=== PATIENT | female | born 1965 | race Caucasian/White ===

== ENCOUNTER 2016-12-02 13:49 | Inpatient (IN) ==
[2016-12-02] MEDS ORDERED: XARELTO PO ONE (15:15)
[2016-12-02 16:16] LABS: MANUAL DIFF NEEDED? NO
[2016-12-02 16:29] LABS: BASO% 0.2 % (0.0-0.8); EOS# 0.11 X1000 (0.0-0.7); HEMATOCRIT 32.9 % (37.0-47.0); HEMOGLOBIN 9.9 g/dL (12.0-16.0); LYMPH% 38.1 % (20.5-51.1); MCH 23.6 PG (27-31); MCHC 30.1 g/dL (33-37); MCV 78.5 FL (81-99); MONO# 0.39 X1000 (0.11-0.59); MONO% 7.1 % (1.7-9.3); MPV 8.4 FL (7.4-10.4); NEUT% 52.6 % (42.2-75.2); PLT 289 X1000 (130-400); RBC 4.19 XMIL (4.2-5.4)
[2016-12-02 16:58] LABS: AGAP 14; ALBUMIN 3.4 g/dL (3.5-5.0); ALKALINE PHOSPHATASE 151 U/L (32-104); BUN 10 mg/dL (8-22); CALCIUM 8.4 mg/dL (8.8-10.2); CHLORIDE 104 mmol/L (98-107); COSMO 283; GOT 30 U/L (10-30); GPT 22 U/L (10-36); POTASSIUM 3.9 mmol/L (3.5-5.1); SODIUM 141 mmol/L (136-145); TCO2 23 mmol/L (25-35); TOTAL BILIRUBIN < 0.10 mg/dL (0.20-1.00)
--- NOTE | 2016-12-02 18:24 | Diag Imaging Result Doc PS360 ---
EXAM: ANGIOGRAM/PULMONARY ARTERIES INDICATION: pt with dvt dx today and sob eval for pe TECHNIQUE: Dose reduction protocol was used. COMPARISON: 04/08/2016 FINDINGS: There are filling defects seen in second and higher order branches of the pulmonary arteries bilaterally mainly leading to the lower lobes. However, there are couple filling defects seen in smaller branches leading to the anterior segment of the right upper lobe. These are consistent with acute pulmonary emboli. There is no evidence of aortic aneurysm. The heart is prominent but stable. There are calcified mediastinal and right hilar lymph nodes indicating prior granulomatous disease. There is a stable large hiatal hernia. There is a calcified granuloma in the lingula. There is stable focal scarring at the left lung base. There is nothing that would indicate acute pulmonary infarct. There is no pleural fluid collection, and there is no pneumothorax. IMPRESSION: 1.Bilateral acute pulmonary emboli with a moderate clot burden. 2.Other incidental/nonacute findings detailed above. Electronically signed by Carlos A Nieto 12/02/2016 6:22 PM
--- NOTE | 2016-12-02 18:49 | PROVIDER DOCUMENTATION ---
This chart was entered by Laura Rodríguez Scribe, acting as scribe for Sierra Farmer MD. HPI-General Adult - General Chief Complaint: Extremity Pain Stated Complaint: DVT Time Seen by Provider: 12/02/16 14:55 Source: patient Allergies/Adverse Reactions: Patient Allergies Allergy/AdvReac Type Severity Reaction Status Date / Time Sulfa (Sulfonamide Allergy Severe BLISTERS Verified 12/02/16 15:11 Antibiotics) TO MOUTH, HANDS, LEGS peanut Allergy Mild ITCHING Verified 12/02/16 15:11 AND SNEEZING Home Medications: Home Medication List Medication Instructions Recorded Confirmed Last Taken Type Lisinopril/Hydrochlorothiazide 1 each PO DAILY #30 tablet 04/22/15 12/02/1611/13 Rx [Lisinopril-Hctz 20-12.5 mg Tab] Omeprazole [Prilosec] 40 mg PO BID 10/07/15 12/02/16 12/02/16 History Phenytoin [Dilantin] 100 mg PO TID 10/07/15 12/02/16 12/02/16 History Ferrous Sulfate [Feosol] 325 mg PO TID 04/28/16 12/02/16 12/02/16 History Furosemide [Lasix] 20 mg PO BID 11/08/16 12/02/16 12/02/16 History Diltiazem [Cardizem] 60 mg PO Q6HR 11/20/16 12/02/16 12/02/16 History - History of Present Illness -Gen Adult Nature of Presenting Problems: 51 y/o F presents to ED cc of DVT to R groin . Pt states she had an ablation done to both legs x 3 weeks ago. Pt states her R leg started having some redness and swelling. Pt was seen here and discharged home with a script. [facility] and doctor wanted to see her before filling. After seeing pt he ordered a ultrasound on leg. Pt states they called her today saying she had a DVT and needed to come to ED for evaluation. Pt states she does have a history of blood cots. Pt reports that the past couple of weeks she has had increasingly worse SOB. Pt denies any pain. Pt is alert and oriented. Location of Pain/Injury: reports: lower extremity Pain Radiation: reports: no radiation Quality of Pain: reports: aching ("full" feeling) Severity: reports: mild Onset/Duration: reports: just prior to arrival Timing: reports: still present Context/Activities at Onset: reports: light activity Modifying Factors: improves with: nothing Associated Symptoms: reports: shortness of breath, other (DVT). denies: chest pain, cough, diarrhea, fever/chills, headaches, nausea, seizure, syncope, vomiting Similar Symptoms Previously?: Yes Recently seen or treated by another doctor?: Yes Review of Systems - Adult - REVIEW OF SYSTEMS - ADULT Constitutional: denies: chills, fever Ears, Nose, Mouth & Throat: denies: ear pain, nose pain Cardiovascular: denies: chest pain, palpitations Respiratory: reports: shortness of breath. denies: cough Gastrointestinal: denies: abdominal pain, diarrhea, frequent heartburn, nausea, rectal bleeding, vomiting Musculoskeletal: reports: other (DVT to r leg). denies: bone pain, back pain, joint swelling, muscle aches Neurological: denies: dizziness/vertigo, headache/migraines, seizure, slurred speech Past History - Adult - PAST MEDICAL HISTORY-ADULT Review of Records: reports: Old Records Reviewed, Nursing Assessment Review Major Childhood Illnesses: reports: denies history Cardiovascular: reports: blood clots, CHF, HTN Respiratory: reports: denies history Gastrointestinal: reports: GI bleed, hepatitis (c) Obstetrical/Gynecological: reports: denies history Genitourinary: reports: kidney disease Musculoskeletal: reports: denies history Neurological: reports: Seizures/Epilepsy Psychiatric: reports: denies history Endocrine/Immune: reports: denies history Other Conditions: reports: denies history - PRIOR SURGERIES/PROCEDURES Surgical/Procedure History: reports: cholecystectomy, hysterectomy, other ( right orbit, right axillary) - PRIOR HOSPITALIZATIONS Prior Hospitalizations: reports: for other non-related - IMMUNIZATION STATUS Childhood Immunizations: See Nurse Assessment Flu Vaccine: See Nurse Assessment - FAMILY HISTORY Family History: reviewed, not pertinent Physical Exam-General - PHYSICAL EXAM-ADULT Initial Vital Signs Reviewed: Yes - CONSTITUTIONAL General Appearance: appears well, alert, obese, anxious - EYES Eyes: pink conjunctivae - HEAD, EARS, NOSE, MOUTH & THROAT HENMT: normocephalic/atraumatic, moist mucous membranes, normal ENT inspection - NECK Neck: non-tender - RESPIRATORY Respiratory: chest non-tender, lungs clear, normal breath sounds - CARDIOVASCULAR Cardiovascular: normal peripheral pulses, regular rate, rhythm, no edema - GASTROINTESTINAL (ABDOMEN) Abdominal Exam: normal bowel sounds, non tender, soft - MUSCULOSKELETAL Back Exam: normal inspection, no CVA tenderness, no vertebral tenderness Extremity: normal range of motion, non-tender - SKIN Integumentary: normal color, normal turgor, warm/dry - NEUROLOGIC Neurologic: grossly normal, no motor/sensory deficits - PSYCHIATRIC Psych/Mental Status: oriented x 3 Progress - PLAN OF CARE/RESULTS Progress/Plan/Lab Results: Vital Signs - 8 hr 12/02/16 14:03 Temperature 98.5 F Pulse Rate 81 Respiratory Rate 20 Blood Pressure 152/97 O2 Sat by Pulse Oximetry 98 PLAN: LABS , RESULTS OF ULTRASOUND , MONITOR PT PT VERBALLY UNDERSTANDS PLAN OF CARE. Result Diagrams: 12/02/16 16:01 12/02/16 16:01 - CT/MRI 1 CT Study: Angiogram, Thorax Impression: Abnormal, Discussed w/Radiology, See EMR Report (pt with bilateral PE) - CONSULTS/PCP/HOSPITALIST Notification #1 *Consult/PCP/Hospitalist*: hospitalist Time Discussed: 18:48 Consult Disposition: Admit Departure - Departure Date of Disposition Decision: 12/02/16 Time of Disposition Decision: 18:39 DIAGNOSIS: Pulmonary embolism Qualifiers: Pulmonary embolism type: saddle Chronicity: acute Acute cor pulmonale presence : without acute cor pulmonale Qualified Code(s): I26.92 - Saddle embolus of pulmonary artery without acute cor pulmonale DVT (deep venous thrombosis) Qualifiers: DVT location: lower extremity Affected thrombotic vein of extremity: femoral Chronicity: acute Laterality: right Qualified Code(s): I82.411 - Acute embolism and thrombosis of right femoral vein Disposition: ADMITTED INPATIENT 09 Certified Medical Emergency: Emergent Condition: Fair Referrals and Follow-Ups: None,PCP [Primary Care Provider] - - Critical Care Note This patient required my direct & personal management of CC.: Yes Total Time (mins): 35 Critical Care Statement: This patient required my direct personal management to treat or rule out processes, the absence of which, could potentiallly result in sudden, clinically significant life or limb threatening deterioration. This chart was documented by the laura scribe, (Laura Rodríguez Scribe) and accurately reflects the services I performed and decisions made by me, Archinard ,Dean-Fatemeh M., MD, as attested by the provider's signature.
[2016-12-02] MEDS ORDERED: ZOFRAN IV PRN (21:07)
[2016-12-02] MEDS: LASIX PO SCH (21:34)
[2016-12-02] MEDS: CARDIZEM PO SCH (21:34)
[2016-12-02] MEDS: PRILOSEC PO SCH (21:34)
[2016-12-03 01:06] LABS: URINE CULTURE NEEDED? NO; URINE SOURCE CATH
[2016-12-03 01:11] LABS: BILIRUBIN URINE NEGATIVE (NEGATIVE); BLOOD URINE NEGATIVE (NEGATIVE); COLOR YELLOW; GLUCOSE URINE NEGATIVE (NEGATIVE); LEUKOCYTES URINE NEGATIVE (NEGATIVE); NITRITE URINE NEGATIVE (NEGATIVE); PH URINE 5.5; PROTEIN URINE TRACE mg/dL (NEGATIVE); TURBIDITY URINE CLEAR (CLEAR); URINE MICRO REVIEW NEEDED? YES; UROBILINOGEN URINE NORMAL (NORMAL)
[2016-12-03 02:21] LABS: UR EPITHELIAL CELLS >10 /HPF (<10); URINE BACTERIA NEGATIVE /HPF; URINE CASTS NONE SEEN; URINE CRYSTALS NONE SEEN; URINE RBC <10 /HPF (<10); URINE SMALL ROUND CELLS NONE SEEN; URINE WBC <10 /HPF (<10)
[2016-12-03 02:26] LABS: SP GRAVITY URINE 1.015
[2016-12-03] MEDS: CARDIZEM PO SCH ×4 (02:30→19:59)
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
[2016-12-03 05:42] LABS: MANUAL DIFF NEEDED? NO
[2016-12-03 05:47] LABS: BASO% 0.5 % (0.0-0.8); EOS# 0.13 X1000 (0.0-0.7); EOS% 2.4 % (0.0-10.0); HEMOGLOBIN 9.5 g/dL (12.0-16.0); LYMPH# 1.83 X1000 (1.2-3.4); LYMPH% 33.1 % (20.5-51.1); MCH 23.4 PG (27-31); MCHC 29.7 g/dL (33-37); MCV 78.8 FL (81-99); MONO# 0.59 X1000 (0.11-0.59); MONO% 10.7 % (1.7-9.3); MPV 8.6 FL (7.4-10.4); NEUT% 53.3 % (42.2-75.2); PLT 285 X1000 (130-400); RBC 4.06 XMIL (4.2-5.4)
[2016-12-03 06:13] LABS: AGAP 9; BUN 8 mg/dL (8-22); CALCIUM 8.6 mg/dL (8.8-10.2); CHLORIDE 105 mmol/L (98-107); COSMO 279; IRON SATURATION 5 %; POTASSIUM 3.8 mmol/L (3.5-5.1); SODIUM 140 mmol/L (136-145); TCO2 26 mmol/L (25-35); TIBC 351 ug/dL; TOTAL IRON 19 ug/dL (49-151); UNBOUND IRON 332 ug/dL (112-346)
[2016-12-03] MEDS: DILANTIN PO SCH ×3 (08:20→17:26)
[2016-12-03] MEDS: PRILOSEC PO SCH ×2 (08:21→19:59)
[2016-12-03] MEDS: LASIX PO SCH ×2 (08:21→19:59)
[2016-12-03] MEDS: PRINZIDE 20/12.5MG PO SCH (08:21)
[2016-12-03] MEDS: FERROUS SULFATE PO SCH ×3 (08:21→17:26)
[2016-12-03] MEDS ORDERED: XARELTO PO SCH (09:00)
--- NOTE | 2016-12-03 10:34 | Diag Imaging Result Doc PS360 ---
EXAM: US BREAST LIMITED UNILAT-LT HISTORY: lump COMMENT: There is a subareolar hypoechoic somewhat complex appearing well-circumscribed lesion directly beneath the nipple slightly medially measuring 1.9 cm in greatest dimension. There is hyperemic flow in the margins of this lesion but not within it. This is apparently visible on the margins of the CT of the chest dated 12/02/2016. IMPRESSION: Given the clinical information and physical findings of localized heat in the skin over this lesion, it is likely that this lesion is an abscess. Further follow-up and/or aspiration may be desirable. Electronically signed by Barak Avila 12/03/2016 10:31 AM
[2016-12-03] MEDS ORDERED: TYLENOL PO PRN (10:53)
[2016-12-03] MEDS ORDERED: HEPARIN 25,000 UNITS/D5W 25,000 UNIT/250 ML IV.SOLN IV SCH (11:30)
--- NOTE | 2016-12-03 13:24 | PROGRESS NOTE ---
DATE: 12/03/2016 SUBJECTIVE: Patient reports feeling fine. Not requiring any oxygen supplementation. No complaining of any shortness of breath. Just reports mild pain around the left breast nipple. Denies any fever, chills. OBJECTIVE: Vital Signs: Temperature 98.4 degrees, heart rate 77, respiratory rate 18, blood pressure 126/68, O2 saturation 98% on room air. General Examination: This is a 51-year-old female lying in bed in no acute distress. HEENT: Head is normocephalic, atraumatic. Anicteric sclerae and pale conjunctivae. Mucous membranes moist. Neck: Supple. No JVD noted. No carotid bruits. No lymphadenopathy. No thyromegaly. Cardiovascular Exam: S1-S2 heard. No murmurs, gallops, or rubs. Regular rate and rhythm. Respiratory: Clear bilaterally to auscultation. No work of breathing or using accessory muscles. Abdomen: Soft , nontender to palpation. Bowel sounds present. No organomegaly. Extremities: No clubbing, cyanosis, or edema. Peripheral pulses present in both legs. Neurologic: Patient, alert oriented x3, able to move 4 extremities. Cranial nerves 2-12 grossly normal. Skin: In the left breast there is a area of fluctuance just next to be the left nipple approximately at 9 hours that is painful to palpation, warm and erythematosus. LABORATORY DATA: White cell count 5.53, hemoglobin 9.5, hematocrit 32.0 platelets 285,000. BMP unremarkable. ASSESSMENT AND PLAN: 1. Bilateral pulmonary embolism/deep vein thrombosis. Patient has been diagnosed with this problem in the emergency room. The chief complaint was some swelling in both legs and then she was diagnosed with deep vein thrombosis. She has history of blood clots in the past. She has been seen in the past by Dr. Pond from Hematology. At this time she was started on admission on Xarelto. Because she had an abscess and for possible on this patient for surgeon incision and drainage surgery we prefer to keep her on heparin drip and just in case the procedure is done we can change it to a different blood thinner. We have talked with the patient regarding what medication she needs to be on and she wants to try 1 month of either Eliquis or Xarelto she can get a 1 month supply free and then she can [facility] a doctor [facility] to see if there is any way to get that medication for her or she can be switched it to warfarin. 2. Hypertension. Blood pressure is well controlled. Will continue with the same management. 3. Iron deficiency anemia. Patient is on ferrous sulfate. Will continue with same management. 4. History of hepatitis C with history of drug abuse aware. 5. Tobacco abuse. Patient has been counseled to stop smoking. 6. Overall this patient is doing good. In case surgery decides to do the procedure next day she can be discharged with oral blood thinners. cc: Geovany Aguayo MD MTDD
--- NOTE | 2016-12-03 15:12 | CONSULTATION ---
DATE OF CONSULTATION: 12/03/2016 HISTORY: Ms. Reece Abdalla is a 51-year-old, overweight, white female who is admitted because of a deep venous thrombosis involving her right lower extremity and pulmonary embolism. She is on anticoagulation. She has had a recent venous ablation per Dr. Black. During her exam, it was noted that she was tender in the periareolar area, left breast, and we were asked to evaluate her for a left breast abscess. PHYSICAL EXAMINATION: General: Ms. Abdalla is overweight. She is awake, cooperative, in no acute distress. HEENT: No jaundice. She does have a tongue ring. No oral lesions. No cervical or supraclavicular lymphadenopathy. Heart: Has a regular rate. Lungs: Clear to auscultation and percussion bilaterally. She has no shortness of breath. She has large pendulous breasts. On the medial aspect of the left breast areola she did have an area of induration and tenderness. There was some subtle redness overlying it. She has no other palpable breast mass on either side. Abdomen: Soft, nontender, without palpable mass. No costovertebral tenderness. Rectal/Vaginal: Exams not performed. Extremities: She does have palpable peripheral pulses. No peripheral edema. Neurologic: She is alert and oriented x3 and appropriate. IMPRESSION: Subcutaneous infection medial aspect of the left nipple. She has had tenderness in this area for at least a month. She is on anticoagulation because of a DVT and pulmonary embolus. She needs to be treated with antibiotics for this breast infection. We will review her ultrasound and proceed with incision and drainage if needed on an elective basis. cc: Swathi Gutierres MD
[2016-12-03] MEDS ORDERED: COUMADIN PO SCH (21:00)
[2016-12-03] MEDS ORDERED: LOVENOX SUBQ SCH (21:00)
[2016-12-03] MEDS ORDERED: SEROQUEL PO SCH (21:00)
[2016-12-03] MEDS: HEPARIN 25,000 UNITS/D5W 25,000 UNIT/250 ML IV.SOLN IV SCH (21:32)
[2016-12-04] MEDS: HEPARIN 25,000 UNITS/D5W 25,000 UNIT/250 ML IV.SOLN IV SCH (02:56)
[2016-12-04] MEDS: CARDIZEM PO SCH ×2 (03:13→10:04)
[2016-12-04 04:12] LABS: INR 1.03; PROTIME 10.8 Seconds (9.2-11.7)
[2016-12-04] MEDS ORDERED: HEPARIN 25,000 UNITS/D5W 25,000 UNIT/250 ML IV.SOLN IV SCH (07:00)
[2016-12-04 08:14] VITALS: BP 122/88
--- NOTE | 2016-12-04 10:01 | PROGRESS NOTE ---
DATE: 12/04/2016 SUBJECTIVE: Ms. Saskia Abdalla is a 51-year-old, overweight, white female who is being anticoagulated because of a DVT and pulmonary embolus. She has had a several-week history of increasing tenderness involving her left breast. OBJECTIVE: She does have a palpable tender area of medial aspect left breast nipple. Ultrasound suggests this could be a localized lesion measuring 1.9 cm; it could be an abscess. We may try to aspirate this at the bedside, but she was sleeping comfortably this morning. She continues treatment for her pulmonary embolism with IV heparin. cc: Swathi Gutierres MD
[2016-12-04] MEDS: FERROUS SULFATE PO SCH ×2 (10:04→12:22)
[2016-12-04] MEDS: DILANTIN PO SCH ×2 (10:04→12:22)
[2016-12-04] MEDS: PRILOSEC PO SCH (10:04)
[2016-12-04] MEDS: LASIX PO SCH (10:04)
[2016-12-04] MEDS: PRINZIDE 20/12.5MG PO SCH (10:04)
[2016-12-04] MEDS ORDERED: XARELTO PO ONE (11:00)
--- NOTE | 2016-12-04 17:34 | DISCHARGE SUMMARY ---
ADMISSION DATE: 12/02/2016 DISCHARGE DATE: 12/04/2016 DISCHARGE DIAGNOSES: 1. Bilateral pulmonary embolism. 2. Deep venous thrombosis. 3. Small left breast abscess. 4. Hypertension. 5. Iron deficiency anemia. 6. Hepatitis C with history of IV drug abuse. 7. Peptic ulcer disease. 8. Tobacco abuse. CONSULTATIONS: Dr. Gutierres from General Surgery. PROCEDURES: 1. Breast ultrasound showed likely an abscess measuring 1.9 cm in greatest dimension. 2. Pulmonary arteriogram showed bilateral acute pulmonary emboli with moderate blood burden. HISTORY OF PRESENT ILLNESS: This is a 51-year-old, female with past medical history of iron deficiency anemia, hepatitis C, peptic ulcer disease who presented to the emergency department after having bilateral leg ablation for venous efflux at the [facility] and she was discharged with antibiotics and because of swelling of 1 legs she went to a [facility] and from there she was sent to the emergency department. Here, an ultrasound revealed left femoral DVT and because she was complaining of shortness of breath a pulmonary angiogram revealed pulmonary embolism. The patient was admitted to the hospital because she was complaining at the time of admission of shortness of breath. Next day she was feeling fine, no shortness of breath reported but she was complaining of left breast pain that ultrasound revealed possible abscess. Regarding pulmonary embolism she was placed on heparin on this patient for possible surgery. Dr. Gutierres has evaluated this patient and apparently, this procedure can be done as an outpatient. Regarding management of anticoagulation the patient is not being sure but when we talked about possible options for her she preferred to have a 1 month supply free for Xarelto. We are going to provide a card to get this free treatment for 1 month and then she said that she can [facility] where she may get this medication for her in the [facility]. Patient is strongly advised to not miss any doses of blood thinners. The patient is being discharged in stable condition for this abscess. We are going to provide the antibiotics and we are going to provide information to find Dr. Gutierres in the office. PHYSICAL EXAMINATION: Vital Signs: Temperature 98.8 degrees, heart rate 91, respiratory rate 20, blood pressure 122/88, O2 saturation 98% on room air. General Examination: This is a 51-year- old, female lying in bed, in no acute distress. HEENT: Head is normocephalic, atraumatic. Anicteric sclerae and pale conjunctivae. Mucous membranes moist. Neck: Supple. No JVD noted. No carotid bruits. No lymphadenopathy. No thyromegaly. Cardiovascular exam: S1, S2 heard. No murmurs, gallops, or rubs. Regular rate and rhythm. Respiratory Exam: Clear bilaterally to auscultation. No work of breathing or using accessory muscles. Abdomen: Soft. Nontender to palpation. Bowel sounds present. No organomegaly. Extremities: No clubbing, cyanosis, or edema. Peripheral pulses present in both legs. Neurological exam: Patient alert and oriented x3. Able to move 4 extremities. Cranial nerves 2-12 grossly normal. DISCHARGE DISPOSITION: To home to self-care. LIST OF MEDICATIONS: 1. She is going to get Xarelto 15 mg p.o. b.i.d. for 21 days and then 20 mg p.o. daily. 2. Augmentin 875 mg 1 tablet p.o. b.i.d. for 1 week. 3. Rest of the home medications as she was taking before. Discharge time 33 minutes. cc: Geovany Aguayo MD
== END 2016-12-04 13:21 | disposition home or self-care (01) ==
LOC: ED 13:49 → 4N 20:45 → SUATTDRO 20:45
PROVIDERS: ATTEND Internal Medicine

== ENCOUNTER 2018-06-18 18:20 | Inpatient (IN) ==
[2018-06-18] MEDS ORDERED: DUONEB (A & A) INH ONE (18:28)
[2018-06-18] MEDS ORDERED: TORADOL IV ONE (18:28)
[2018-06-18] MEDS ORDERED: ATIVAN IV ONE (18:28)
[2018-06-18] MEDS ORDERED: NS 1,000 ML IV ONE (18:28)
--- NOTE | 2018-06-18 18:34 | PROVIDER DOCUMENTATION ---
This chart was entered by Britt Dean Scribe, acting as scribe for Kanu Ferraro MD. HPI-Chest Pain <Erick Arambula - Last Filed: 06/18/18 21:49> - General Source: patient - History of Present Illness-CP Location: reports: substernal Chest Pain Radiation: reports: no radiation Quality of Pain: reports: sharp Severity in ED: moderate Timing: still present Context/Activities at Onset: reports: none Modifying Factors: improves with: breathing, coughing Associated Symptoms: reports: shortness of breath. denies: diaphoresis, fever/ chills, nausea, vomiting Nitro Today/Relief: no nitro taken today Aspirin Treatment Today: no aspirin today Prior Chest Pain/Cardiac Workup: reports: non-cardiac, pulmonary embolism Similar Symptoms Previously?: Yes Recently Seen Here or By Another Healthcare Provider: Yes <Kanu Ferraro - Last Filed: 06/23/18 01:01> - General Stated Complaint: CHEST PAIN Time Seen by Provider: 06/18/18 18:25 Allergies/Adverse Reactions: Patient Allergies Allergy/AdvReac Type Severity Reaction Status Date / Time Sulfa (Sulfonamide Allergy Severe BLISTERS Verified 05/07/18 21:45 Antibiotics) TO MOUTH, HANDS, LEGS peanut Allergy Mild ITCHING Verified 05/07/18 21:45 AND SNEEZING Home Medications: Home Medication List Medication Instructions Recorded Confirmed Last Taken Type Levetiracetam [Keppra] 500 mg PO TID 04/16/17 06/18/18 06/18/18 13:00 History Carbamazepine 200 mg PO BID 06/18/18 06/18/18 06/18/18 07:00 History Fluoxetine HCl [Prozac] 20 mg PO DAILY 06/18/18 06/18/18 06/18/18 07:00 History Cyanocobalamin (Vitamin B-12) 5,000 mcg PO DAILY 06/19/18 06/19/18 1 Day Ago History [Vitamin B12] ~06/18/18 Ferrous Sulfate 325 mg PO HS 06/19/18 06/19/18 1 Day Ago History ~06/18/18 Lisinopril/Hydrochlorothiazide 1 tab PO DAILY 06/19/18 06/19/18 1 Day Ago History [Lisinopril-Hctz 20-12.5 mg Tab] ~06/18/18 Rivaroxaban [Xarelto] 20 mg PO AC 06/19/18 06/19/18 1 Day Ago History ~06/18/18 - History of Present Illness-CP Nature of Presenting Problem: Pt is 53/F presenting to ED via EMS. She c/o cp that is sharp, accompanied by SOB, weakness, cough and blood in urine. Pt has a recent hx of blood clots in both lungs, as she was just released from the hospital on the 13 of May. She is currently on xerelto. (Britt Dean) Pt is 53/F presenting to ED via EMS. She c/o cp that is sharp, accompanied by SOB, weakness, cough and blood in urine. Pt has a recent hx of blood clots in both lungs, as she was just released from the hospital on the 13 of May. She is currently on xerelto. (Kanu Ferraro) Review of Systems - Adult - REVIEW OF SYSTEMS - ADULT Constitutional: reports: no symptoms reported. denies: chills, fever Eyes: reports: no symptoms reported Ears, Nose, Mouth & Throat: reports: no symptoms reported Cardiovascular: reports: chest pain, other (tachy). denies: edema Respiratory: reports: cough, shortness of breath Gastrointestinal: reports: no symptoms reported. denies: abdominal pain, diarrhea, nausea, vomiting Genitourinary: reports: no symptoms reported Musculoskeletal: reports: no symptoms reported Integumentary: reports: no symptoms reported Neurological: denies: dizziness/vertigo, headache/migraines Psychiatric: reports: no symptoms reported Endocrine: reports: no symptoms reported Hematologic/Lymphatic: reports: blood clots Allergic/Immunologic: reports: no symptoms reported <Kanu Ferraro - Last Filed: 06/23/18 01:01> Past History - Adult - PAST MEDICAL HISTORY-ADULT Review of Records: reports: Old Records Reviewed, Nursing Assessment Review, Medications Reviewed, Social history reviewed & non-contributory. Major Childhood Illnesses: reports: denies history Cardiovascular: reports: blood clots, CHF, HTN Respiratory: reports: denies history Gastrointestinal: reports: GERD, GI bleed, hepatitis (c) Obstetrical/Gynecological: reports: denies history Genitourinary: reports: kidney disease Musculoskeletal: reports: denies history Neurological: reports: Seizures/Epilepsy, TIA Psychiatric: reports: denies history Endocrine/Immune: reports: denies history Other Conditions: reports: denies history - PRIOR SURGERIES/PROCEDURES Surgical/Procedure History: reports: hysterectomy, other, cholecystectomy - PRIOR HOSPITALIZATIONS Prior Hospitalizations: reports: for other non-related - IMMUNIZATION STATUS Childhood Immunizations: See Nurse Assessment Flu Vaccine: See Nurse Assessment - FAMILY HISTORY Family History: reviewed, not pertinent - SOCIAL HISTORY Smoking: cigarettes, less than 1 pack/day Provider spent 3-5 mins advising pt. on dangers of tobacco.: Discussed manners to quit use, and f/u contacts for add'l counseling. Substance Use: none presently/history of abuse Alcohol Use Frequency: never <Kanu Ferraro - Last Filed: 06/23/18 01:01> Physical Exam-General - PHYSICAL EXAM-ADULT Initial Vital Signs Reviewed: Yes - CONSTITUTIONAL General Appearance: appears well, alert, mild distress, obese - EYES Eyes: PERRL/EOMI - HEAD, EARS, NOSE, MOUTH & THROAT HENMT: normal ENT inspection - NECK Neck: non-tender - RESPIRATORY Respiratory: chest non-tender, lungs clear, other (diminished breath sounds, hyperventilation) - CARDIOVASCULAR Cardiovascular: normal peripheral pulses, no edema, no gallop, no JVD, no murmur , tachycardia - GASTROINTESTINAL (ABDOMEN) Abdominal Exam: normal bowel sounds - LYMPHATIC Lymphatic: no adenopathy - MUSCULOSKELETAL Back Exam: normal inspection Extremity: normal range of motion, non-tender, normal gait, normal inspection - SKIN Integumentary: normal color, normal turgor, warm/dry - NEUROLOGIC Neurologic: grossly normal - PSYCHIATRIC Psych/Mental Status: normal mood/affect, normal thought content, normal thought process, oriented x 3, anxious, tearful <Kanu Ferraro - Last Filed: 06/23/18 01:01> Progress - PLAN OF CARE/RESULTS Result Diagrams: 06/18/18 19:05 06/18/18 19:05 - CONSULTS/PCP/HOSPITALIST Notification Consult Disposition: Will see in ED <Erick Arambula - Last Filed: 06/18/18 21:49> - PLAN OF CARE/RESULTS Result Diagrams: 06/22/18 07:10 06/22/18 07:10 - EKG 1 Time of EKG reading by physician:: 18:58 EKG Read and Signed by:: Erick Arambula EKG Interpretation (*Must complete 3 of following elements*): Abnormal (sinus tachycardia Incomplete right bundle branch block, Possible Anterior infarct, age undetermined, Abnormal ECG) Rate: 101 Rhythm: sinus tachycardia [place]: normal QRS: normal - XRAY 1 XRAY: Bilateral XRAY Study: Chest Impression: Normal (FINDINGS: There is a calcified granuloma in the left lower lung zone. The lungs are grossly clear. There is no discrete pleural fluid collection or pneumothorax. There is a stable hiatal hernia. The cardiomediastinal silhouette and central vasculature are grossly unremarkable, otherwise. IMPRESSION: Stable chest with no definite acute pathology. Electronically signed by Carlos A Nieto 06/18/2018 6:49 PM 06/18/18 1729) - CONSULTS/PCP/HOSPITALIST Notification #1 *Consult/PCP/Hospitalist*: Spoke w/ Dr. Bateman, hospitalist. PT was accepted for admit Time Discussed: 21:45 Consult Disposition: Admit - CHANGE OF SHIFT REPORT (ED Provider) Report Given and Care Transferred to:: Ralf Time of Transfer: 19:00 <Kanu Ferraro - Last Filed: 06/23/18 01:01> - PLAN OF CARE/RESULTS Progress/Plan/Lab Results: Orders Category Date Time Status Admit - [facility] Routine AdmDCTranf 06/18/18 23:55 Active Notify MD if DIRECTED Care 06/18/18 23:55 Active [facility] Loc DIRECTED Care 06/18/18 23:55 Completed Vital Signs Order Q 4-HR ASSESS Care 06/18/18 23:55 Active Z-Document. for Tele Applied ORDERED Care 06/18/18 23:55 Completed NPO Diet 06/18/18 23:55 Completed CHEST-PORTABLE [RAD] Stat Exams 06/18/18 18:[address] ANGIOGRM PULMONARY ARTERIES [CT] Stat Exams 06/18/18 18:28 Completed ABG [RESP] Routine Lab 06/18/18 18:55 Completed BLOOD CULTURE [BLDCUL] Stat Lab 06/18/18 19:05 Results CBC WITH ELECTRONIC DIFF [HEME] Stat Lab 06/18/18 19:05 Completed CK PROFILE [SP CHEM] Q8H Lab 06/18/18 00:50 Completed CK PROFILE [SP CHEM] Q8H Lab 06/19/18 06:45 Completed CK PROFILE [SP CHEM] Q8H Lab 06/19/18 16:00 Completed CK PROFILE [SP CHEM] Stat Lab 06/18/18 19:05 Completed COMPREHENSIVE METABOLIC PANEL [CHEM] Stat Lab 06/18/18 19:05 Completed LACTATE, PLASMA [CHEM] Stat Lab 06/18/18 19:05 Completed MAGNESIUM [CHEM] Stat Lab 06/18/18 19:05 Completed PRO B-NATRIURETIC PEPTIDE Stat Lab 06/18/18 19:05 Completed PROTIME WITH INR [COAG] Stat Lab 06/18/18 19:05 Completed PTT [COAG] Stat Lab 06/18/18 19:05 Completed TROPONIN T Q8H Lab 06/18/18 00:50 Completed TROPONIN T Q8H Lab 06/19/18 06:45 Completed TROPONIN T Q8H Lab 06/19/18 16:00 Completed TROPONIN T Stat Lab 06/18/18 19:05 Completed URINALYSIS W/POSS RFLX CULT [URINALYSIS] Stat Lab 06/18/18 23:43 Completed URINE DRUG SCREEN Stat Lab 06/18/18 23:43 Completed 0.9% Sodium Chloride Inj [Ns] 1,000 ml Med 06/18/18 18:28 Discontinued IV 999 mls/hr Acetaminophen [Tylenol] Med 06/18/18 23:55 Active 650 mg PO Q6H PRN PRN Albuterol 2.5MG/Ipratrop 0.5MG [Duoneb (A & A)] Med 06/18/18 18:28 Discontinued 3 ml INH NOW ONE Aspirin Med 06/19/18 09:00 Active 325 mg PO DAILY Carbamazepine [Tegretol] Med 06/19/18 09:00 Active 200 mg PO BID Fluoxetine [Prozac] Med 06/19/18 09:00 Active 20 mg PO DAILY Ketorolac [Toradol] Med 06/18/18 18:28 Discontinued 30 mg IV NOW ONE Levetiracetam [Keppra] Med 06/19/18 09:00 Active 500 mg PO TID@0900,1500,2100 Lorazepam [Ativan] Med 06/18/18 18:28 Discontinued 0.5 mg IV NOW ONE Omeprazole [Prilosec] Med 06/19/18 07:00 Active 20 mg PO DAILY@0700 Ondansetron [Zofran] Med 06/18/18 23:55 Active 4 mg IV Q4H PRN PRN Aerosol Treatments Routine Oth 06/18/18 18:29 Completed Aerosol Treatments Stat Oth 06/18/18 18:29 Completed Oxygen Device Routine Oth 06/18/18 23:55 Completed Telemetry [OM.EQ] Routine Oth 06/18/18 23:55 Active EKG [EKG] Stat Ther 06/18/18 18:26 Draft Transfer/Admit Order [TRANSFER] Routine Transfer 06/18/18 22:49 Completed Departure - Departure Certified Medical Emergency: Emergent - Critical Care Note This patient required my direct & personal management of CC.: No <Erick Arambula - Last Filed: 06/18/18 21:49> - Departure Date of Disposition Decision: 06/18/18 Time of Disposition Decision: 21:50 <Kanu Ferraro - Last Filed: 06/23/18 01:01> - Departure DIAGNOSIS: Shortness of breath Pulmonary embolism Qualifiers: Pulmonary embolism type: unspecified Chronicity: acute Acute cor pulmonale presence: without acute cor pulmonale Qualified Code(s): I26.99 - Other pulmonary embolism without acute cor pulmonale Chest pain Qualifiers: Chest pain type: chest pain on breathing Qualified Code(s): R07.1 - Chest pain on breathing; R07.81 - Pleurodynia Disposition: LEFT WITHOUT BEING SEEN 07 Condition: Fair Attestation - Physician/ [place] Attestation Patient care was provided by Advanced Practice Provider:: No The physician spent face to face time with patient:: Yes Advanced Practice Provider documentation review:: Supervising physician onsite and consulted in the evaluation and care of this patient. The physician did have a face to face encounter with the patient. <Kanu Ferraro - Last Filed: 06/23/18 01:01> This chart was documented by the indicated scribe, (Britt Dean Scribe) and accurately reflects the services I performed and decisions made by , Kanu Ferraro MD, as attested by the provider's signature.
--- NOTE | 2018-06-18 18:52 | Diag Imaging Result Doc PS360 ---
EXAM: CHEST-PORTABLE INDICATION: CP, SOB TECHNIQUE: One view COMPARISON: 05/31/2018 FINDINGS: There is a calcified granuloma in the left lower lung zone. The lungs are grossly clear. There is no discrete pleural fluid collection or pneumothorax. There is a stable hiatal hernia. The cardiomediastinal silhouette and central vasculature are grossly unremarkable, otherwise. IMPRESSION: Stable chest with no definite acute pathology. Electronically signed by Carlos A Nieto 06/18/2018 6:49 PM
[2018-06-18 19:04] LABS: ALLEN TEST YES; BE -0.2 mmoll (-3.0-3.0); BLOOD TYPE ARTERIAL; HCO3-(ACT) 24.7 mmoll (20.0-26.0); METHB 0.6 % (0.0-1.5); O2(CT) 13.4 mL/dL (15.0-23.0); PCO2(98.6) 36 mmHg (35-45); PO2(98.6) 71 mmHg (60-100); SAMPLE BLOOD; SAO2 95.4 % (95.0-100.0); THB 10.2 g/dL (11.5-17.4); pH(98.6) 7.43 (7.35-7.45)
[2018-06-18 19:21] LABS: MODALITY ROOM AIR
[2018-06-18 19:28] LABS: BASO# 0.02 X1000 (0.0-0.2); BASO% 0.4 % (0.0-0.8); EOS# 0.04 X1000 (0.0-0.7); EOS% 0.9 % (0.0-10.0); HEMATOCRIT 30.7 % (37.0-47.0); HEMOGLOBIN 8.7 g/dL (12.0-16.0); LYMPH# 1.29 X1000 (1.2-3.4); LYMPH% 28.4 % (20.5-51.1); MCH 22.4 PG (27-31); MCHC 28.3 g/dL (33-37); MCV 78.9 FL (81-99); MONO# 0.66 X1000 (0.11-0.59); MONO% 14.5 % (1.7-9.3); MPV 8.5 FL (7.4-10.4); NEUT# 2.54 X1000 (1.4-6.5); NEUT% 55.8 % (42.2-75.2); PLT 315 X1000 (130-400); RBC 3.89 XMIL (4.2-5.4); RDW 21.2 % (11.5-14.5); WBC 4.55 X1000 (4.8-10.8)
[2018-06-18 19:30] LABS: INR 1.1; PROTIME 15.1 Seconds (11.0-16.0)
[2018-06-18 19:31] LABS: PTT 31.7 Seconds (22.3-41.8)
[2018-06-18 19:38] LABS: AGAP 13; ALB/GLOB RATIO 1.1; ALBUMIN 3.7 g/dL (3.5-5.0); ALKALINE PHOSPHATASE 132 U/L (32-104); BUN 13 mg/dL (8-22); CALCIUM 8.7 mg/dL (8.8-10.2); CHLORIDE 104 mmol/L (98-107); CK PROFILE 98 U/L (24-173); COSMO 279; CREATININE 0.6 mg/dL (0.5-0.9); ESTIMATED GFR > 60; GLUCOSE 124 mg/dL (70-104); GOT 17 U/L (10-30); GPT 15 U/L (10-36); MAGNESIUM 1.6 mg/dL (1.5-2.7); POTASSIUM 3.7 mmol/L (3.5-5.1); SODIUM 139 mmol/L (136-145); TCO2 22 mmol/L (25-35); TOTAL BILIRUBIN < 0.15 mg/dL (0.20-1.00); TOTAL PROTEIN 7.1 g/dL (6.3-8.3)
--- NOTE | 2018-06-18 21:13 | Diag Imaging Result Doc PS360 ---
EXAM: CT ANGIOGRM PULMONARY ARTERIES INDICATION: reassess clot burden TECHNIQUE: This exam was performed using automated exposure control, adjustment of mA or kV according to patient size, and/or use of iterative reconstruction technique. Thin section axial images and 3-D MIPS were obtained. COMPARISON: 05/07/2018 FINDINGS: There are filling defects seen in the second and higher order branches of the right pulmonary artery and a subtle filling defect in third or branches of the left pulmonary artery consistent with pulmonary emboli, which were also seen on the previous study. The clot burden has lessened during the interval. No new clots are identified. The aorta and mediastinum are stable. There is a stable hiatal hernia. There is stable focal scarring at the left lung base. No new consolidations are identified. IMPRESSION: Known bilateral pulmonary emboli as described that were also seen on the previous study, but the clot burden has decreased. Electronically signed by Carlos A Nieto 06/18/2018 9:10 PM
[2018-06-18 23:50] LABS: URINE SOURCE CLEAN CATCH
[2018-06-18] MEDS ORDERED: ZOFRAN IV PRN (23:55)
[2018-06-19 00:10] LABS: BILIRUBIN URINE NEGATIVE (NEGATIVE); BLOOD URINE NEGATIVE (NEGATIVE); COLOR YELLOW; GLUCOSE URINE NEGATIVE (NEGATIVE); KETONE URINE NEGATIVE (NEGATIVE); LEUKOCYTES URINE NEGATIVE (NEGATIVE); NITRITE URINE NEGATIVE (NEGATIVE); PROTEIN URINE 50 mg/dL (NEGATIVE); SP GRAVITY URINE > 1.050; TURBIDITY URINE CLEAR (CLEAR); UR AMPHETAMINES QUAL NONE DETECTED (NONE DETECT); UR BARBITUATES QUAL NONE DETECTED (NONE DETECT); UR BENZODIAZEPIN QUAL NONE DETECTED (NONE DETECT); UR CANNABINOIDS QUAL NONE DETECTED (NONE DETECT); UR COCAINE QUAL NONE DETECTED (NONE DETECT); UR EPITHELIAL CELLS <10 /HPF (<10); UR METHADONE QUAL NONE DETECTED (NONE DETECT); UR OPIATES QUAL NONE DETECTED (NONE DETECT); UR OXYCODONE QUAL NONE DETECTED (NONE DETECT); UR PCP QUAL NONE DETECTED (NONE DETECT); URINE BACTERIA NEGATIVE /HPF; URINE RBC <10 /HPF (<10); URINE WBC <10 /HPF (<10); UROBILINOGEN URINE NORMAL (NORMAL)
--- NOTE | 2018-06-19 00:34 | HISTORY AND PHYSICAL ---
PRIMARY CARE PHYSICIAN: None. CHIEF COMPLAINT: Chest pain. HISTORY OF PRESENTING ILLNESS: A 53-year-old female with a history of pulmonary thromboembolism, hypertension, hep C and seizure disorder, who had presented to emergency department with 1-day history of having chest pain. She described it as sharp and with radiation to the left shoulder. She states that she was nauseated. She was evaluated in the emergency department and due to her presenting symptoms it was thought that we will place her for observation for further evaluation and management. At the time of my examination, patient denied any headache, fever, chills, hemoptysis, melena or any weight changes, but complained of chest discomfort. PAST MEDICAL HISTORY: Includes pulmonary thromboembolism, DVT, hypertension, hep C, seizure disorder. PAST SURGICAL HISTORY: Hernia repair, cholecystectomy, hysterectomy, left thumb amputation, left eye surgery. ALLERGIES: Sulfa and peanuts. CURRENT MEDICATIONS: As listed in the medication reconciliation sheet. SOCIAL HISTORY: A 40 pack years history of smoking. Denies any history of alcohol use. Admits to IV drug use and methamphetamine use. FAMILY HISTORY: No history of coronary artery disease. REVIEW OF SYSTEMS: Fourteen point review of systems as listed in HPI. Other systems negative. PHYSICAL EXAMINATION: GENERAL: Cooperative, friendly female. She is resting comfortably now. VITAL SIGNS: Temperature 98.8 degrees, pulse 101, respirations 24, blood pressure 151/91. HEENT: Atraumatic, normocephalic. Extraocular movements intact. PERRLA. NECK: No masses. CHEST: Clear to auscultation. CARDIOVASCULAR: Regular rate and rhythm. ABDOMEN: Soft. Positive bowel sounds. EXTREMITIES: No edema. NEUROLOGIC: She is awake, alert, oriented x3. GENITOURINARY: No bladder distention. SKIN: Warm. LABORATORIES AND STUDIES: WBCs 4.55, hemoglobin 8.7, hematocrit 30.7, platelets 315,000. Sodium 139, potassium 3.7, chloride 104, CO2 is 22, BUN is 13, creatinine 0.6, glucose is 124. Troponin is 0.010. ASSESSMENT: A 53-year-old female with a history of pulmonary thromboembolism on anticoagulation hypertension, hepatitis C and seizure disorder, who had presented to the emergency department with a 1-day history of having chest pain. We will place the patient for observation for further evaluation and management. 1. Chest pain, seems atypical. 2. Pulmonary embolism, on anticoagulation. 3. Hypertension. 4. Seizure disorder. PLAN: 1. We will admit patient to medical floor with telemetry. 2. Continue with cardiac workup. Check EKG, serial cardiac enzymes. Have patient continue on aspirin. 3. We will use morphine p.r.n. chest pain. 4. Continue with the patient on anticoagulation with Xarelto. 5. Monitor blood pressure closely and resume antihypertensive agent. 6. We will restart her antiseizure medicines. 7. Her Xarelto will suffice for her DVT prophylaxis also. 8. We will continue to follow and reassess and make further recommendation based on the patient's clinical course. cc: Nicholas Bateman MD
[2018-06-19] MEDS: PRILOSEC PO SCH (06:16)
--- NOTE | 2018-06-19 07:16 | EKG Report ---
Test Performed on : 06/18/2018 6:58:58 PM Test Reason : PE Blood Pressure : / mmHG Vent. Rate : 101 BPM Atrial Rate : 101 BPM P-R Int : 166 ms QRS Dur : 100 ms QT Int : 360 ms P-R-T Axes : 053 -12 012 degrees QTc Int : 466 ms Sinus tachycardia. Incomplete right bundle branch block Possible Anterior infarct (cited on or before 08-FEB-2018) Abnormal ECG When compared with ECG of 08-MAY-2018 11:17, Incomplete right bundle branch block is now present Unconfirmed Result
[2018-06-19 07:29] LABS: AGAP 12; BUN 12 mg/dL (8-22); CALCIUM 8.5 mg/dL (8.8-10.2); CHLORIDE 105 mmol/L (98-107); COSMO 276; CREATININE 0.5 mg/dL (0.5-0.9); ESTIMATED GFR > 60; GLUCOSE 101 mg/dL (70-104); POTASSIUM 4.1 mmol/L (3.5-5.1); SODIUM 138 mmol/L (136-145); TCO2 21 mmol/L (25-35)
[2018-06-19] MEDS: TYLENOL PO PRN ×2 (07:43→14:23)
[2018-06-19] MEDS: TEGRETOL PO SCH ×2 (08:40→22:07)
[2018-06-19] MEDS: ASPIRIN PO SCH (08:40)
[2018-06-19] MEDS: PROZAC PO SCH (08:40)
[2018-06-19] MEDS: KEPPRA PO SCH ×3 (08:40→22:07)
--- NOTE | 2018-06-19 18:27 | PROGRESS NOTE ---
DATE: 06/19/2018 SUBJECTIVE: Ms. Abdalla was admitted yesterday. She has no primary care physician. She was having complaint of chest pain. A 53-year-old with a history of pulmonary thromboembolism, hypertension, hepatitis C and seizure disorder. Presented to the emergency department after a 1- day history of chest pain described as sharp and radiating to the left shoulder. She states that she had a little nausea in the emergency department. Symptoms thought to warrant her to be admitted to observation. PAST MEDICAL HISTORY: Includes pulmonary thromboembolism, DVT, hypertension, hepatitis C, seizure disorder. PAST SURGICAL HISTORY: Hernia repair, cholecystectomy, hysterectomy, left thumb amputation, left eye surgery. ALLERGIES: She is allergic to sulfa and peanuts. Enzymes have been negative. Chest pain sounds atypical. She has not had really any further chest discomfort while she is here. Pulmonary arteriogram showed old embolus, but it appeared to show good resolution as well. So, no acute event. Blood pressures seemed to be well controlled. PHYSICAL EXAMINATION: Vital Signs: Temp 98.3, pulse 84, respirations 24, blood pressure 124/64. Lungs: Clear in all lung bal. Cardiovascular: Regular rhythm and rate without murmur or S3. Abdomen: Soft. Skin: Warm and dry. REVIEW OF LAB: White count 4550, hematocrit 30, platelet count 315,000. Sodium 138, potassium 4.1, chloride 105, BUN 12, creatinine 0.5. CK was less than 100, troponins have all been less than 0.01. EKGs have been unremarkable. No significant ST-segment changes. As stated, pulmonary arteriogram. She has known bilateral pulmonary emboli compared to previous study, but clot burden had decreased. ASSESSMENT: I think she is doing well. No sign of cardiac ischemia. I think one of her complaints was the palpitations and so continue watch on monitor. I think if she does okay tonight she could go home in the morning. REVIEW OF ORDERS: She is on Tegretol 200 mg b.i.d., aspirin 325 mg a day, Keppra 500 mg t.i.d., Prilosec 20 mg a day and an aspirin 325 mg a day. So, hopefully she can go home in the morning. cc: Nader Gill MD
[2018-06-19] MEDS: FERROUS SULFATE PO SCH (22:07)
[2018-06-20] MEDS: PRILOSEC PO SCH (06:36)
[2018-06-20 08:13] LABS: BASO# 0.02 X1000 (0.0-0.2); BASO% 0.6 % (0.0-0.8); EOS# 0.06 X1000 (0.0-0.7); EOS% 1.9 % (0.0-10.0); HEMATOCRIT 32.3 % (37.0-47.0); HEMOGLOBIN 9.1 g/dL (12.0-16.0); LYMPH# 0.85 X1000 (1.2-3.4); LYMPH% 27.2 % (20.5-51.1); MCH 22.4 PG (27-31); MCHC 28.2 g/dL (33-37); MCV 79.4 FL (81-99); MONO# 0.42 X1000 (0.11-0.59); MONO% 13.5 % (1.7-9.3); MPV 8.8 FL (7.4-10.4); NEUT# 1.77 X1000 (1.4-6.5); NEUT% 56.8 % (42.2-75.2); PLT 315 X1000 (130-400); RBC 4.07 XMIL (4.2-5.4); RDW 21.2 % (11.5-14.5); WBC 3.12 X1000 (4.8-10.8)
[2018-06-20 08:27] LABS: AGAP 11; ALB/GLOB RATIO 1.2; ALBUMIN 3.7 g/dL (3.5-5.0); ALKALINE PHOSPHATASE 126 U/L (32-104); BUN 11 mg/dL (8-22); CALCIUM 9.1 mg/dL (8.8-10.2); CHLORIDE 101 mmol/L (98-107); COSMO 275; CREATININE 0.5 mg/dL (0.5-0.9); ESTIMATED GFR > 60; GLUCOSE 98 mg/dL (70-104); GOT 22 U/L (10-30); GPT 19 U/L (10-36); POTASSIUM 4.6 mmol/L (3.5-5.1); SODIUM 138 mmol/L (136-145); TCO2 26 mmol/L (25-35); TOTAL BILIRUBIN < 0.15 mg/dL (0.20-1.00); TOTAL PROTEIN 6.8 g/dL (6.3-8.3)
[2018-06-20] MEDS: VITAMIN B-12 PO SCH (09:26)
[2018-06-20] MEDS: PROZAC PO SCH (09:26)
[2018-06-20] MEDS: PRINZIDE 20/12.5MG PO SCH (09:26)
[2018-06-20] MEDS: TEGRETOL PO SCH ×2 (09:26→20:43)
[2018-06-20] MEDS: ASPIRIN PO SCH (09:27)
[2018-06-20] MEDS: XARELTO PO SCH (09:27)
[2018-06-20] MEDS: KEPPRA PO SCH ×3 (09:27→20:43)
[2018-06-20] MEDS: ULTRAM PO PRN ×2 (13:31→20:43)
--- NOTE | 2018-06-20 15:21 | PROGRESS NOTE ---
DATE: 06/20/2018 SUBJECTIVE: The patient is resting comfortably in bed. She complains of palpitations. OBJECTIVE: Vital Signs: Temperature 98, blood pressure 137/75, heart rate 92, respirations 16, O2 sats 92% on room air. General: This is a morbidly obese female lying in bed in no acute distress. Heart: S1, S2 normal. Regular rate and rhythm. Lungs: Clear to auscultation bilaterally. Abdomen: Positive bowel sounds. Soft, nontender, nondistended. Extremities: No edema, no cyanosis. Neurologic: The patient is alert and oriented x 3. LABS: Reviewed. ASSESSMENT AND PLAN: 1. Recurrent pulmonary embolism with DVT. The patient will need lifelong anticoagulation. We will continue on anticoagulation. 2. Palpitations. The patient's heart rate has improved. We will check an echocardiogram to assess the patient's LV function. 3. Morbid obesity. Aware. 4. Chronic back pain. We will start the patient on tramadol. 5. GI prophylaxis. Will start the patient on omeprazole. cc: Leydi Prasad MD
--- NOTE | 2018-06-20 15:48 | ECHO REPORT ---
ORDER DATE: 06/20/2018 INDICATION: Recurrent pulmonary emboli, history of morbid obesity, hypertension, tachycardia. FINDINGS: 1. The right atrium appears normal in size at 2.9 cm. 2. There is mild tricuspid regurgitation. RV systolic pressure of 40. 3. The right ventricle appears to be normal in size with normal RV systolic function. 4. No significant pulmonic insufficiency. 5. Normal left atrial size with a dimension of 3.9 cm. 6. No mitral valve prolapse. Trace mitral regurgitation. 7. Normal LV size, end-diastolic dimension of 5.2. Normal wall thicknesses with a posterior and interventricular septal wall thickness of 1.1 and 1.0 cm respectively. Normal LV systolic function. Estimated ejection fraction of 60% to 65% with normal wall motion. 8. Aortic valve opens well. It is trileaflet. No evidence of stenosis or insufficiency. 9. Aorta appears normal in visualized segments. 10. No pericardial effusion seen. cc: MD Leydi Perea MD
[2018-06-20] MEDS: FERROUS SULFATE PO SCH (20:43)
[2018-06-21] MEDS: PRILOSEC PO SCH (06:53)
[2018-06-21 08:15] LABS: AGAP 13; BUN 14 mg/dL (8-22); CALCIUM 8.4 mg/dL (8.8-10.2); CHLORIDE 100 mmol/L (98-107); COSMO 275; CREATININE 0.7 mg/dL (0.5-0.9); ESTIMATED GFR > 60; GLUCOSE 105 mg/dL (70-104); SODIUM 137 mmol/L (136-145); TCO2 24 mmol/L (25-35)
[2018-06-21] MEDS: PRINZIDE 20/12.5MG PO SCH (09:06)
[2018-06-21] MEDS: XARELTO PO SCH (09:07)
[2018-06-21] MEDS: ULTRAM PO PRN ×2 (09:07→16:09)
[2018-06-21] MEDS: VITAMIN B-12 PO SCH (09:07)
[2018-06-21] MEDS: PROZAC PO SCH (09:07)
[2018-06-21] MEDS: TEGRETOL PO SCH ×2 (09:07→20:58)
[2018-06-21] MEDS: ASPIRIN PO SCH (09:07)
[2018-06-21] MEDS: KEPPRA PO SCH ×3 (09:07→20:58)
[2018-06-21 09:29] LABS: HEMOGLOBIN 9.5 g/dL (12.0-16.0); MCH 22.1 PG (27-31); MCHC 27.9 g/dL (33-37); MCV 79.3 FL (81-99); MPV 8.8 FL (7.4-10.4); RBC 4.29 XMIL (4.2-5.4); RDW 21.4 % (11.5-14.5); WBC 3.45 X1000 (4.8-10.8)
[2018-06-21] MEDS: TESSALON PO SCH ×2 (13:00→16:08)
[2018-06-21] MEDS ORDERED: ROCEPHIN ONE (14:47)
[2018-06-21] MEDS: ROCEPHIN 1 GM in NS 50 ML IV SCH (14:59)
[2018-06-21] MEDS: SOLU-MEDROL IV SCH (14:59)
[2018-06-21] MEDS: ROBITUSSIN-DM PO PRN (15:00)
[2018-06-21] MEDS: ZITHROMAX 500 MG/NS 500 MG/250 ML IVPB IV SCH (16:08)
[2018-06-21] MEDS: NORCO-5 PO PRN (18:18)
[2018-06-21] MEDS: FERROUS SULFATE PO SCH (20:58)
[2018-06-22] MEDS: SOLU-MEDROL IV SCH ×4 (00:27→23:31)
--- NOTE | 2018-06-22 04:09 | PROGRESS NOTE ---
DATE: 06/21/2018 SUBJECTIVE: The patient is resting comfortably. She complains of shortness of breath and wheezing and a nonproductive cough. She denies having chest pain. OBJECTIVE: Vital Signs: Temperature 98.2 degrees, blood pressure 116/67, heart rate 86, respirations 20, O2 saturation 95% on room air. General: This is a morbidly obese female sitting up in bed, in no acute distress. Heart: S1, S2 normal. Regular rate and rhythm. Lungs: Diffuse expiratory wheezes. No crackles. No rales. Abdomen: Positive bowel sounds. Soft, nontender, nondistended. Extremities: No edema. No cyanosis. Neurologic: The patient is alert and oriented x4. LABORATORIES: Hemoglobin 9.5, hematocrit 34, platelets 346,000. Glucose 105, calcium 8.4. ASSESSMENT AND PLAN: 1. Acute bronchitis. We will start the patient on IV antibiotics, bronchodilator therapy, and IV steroids and monitor her response. 2. Recurrent pulmonary embolism with a history of deep vein thrombosis. Continue on Xarelto. 3. Palpitations. Resolved. 4. Morbid obesity. Aware. 5. Chronic back pain. Continue on p.r.n. pain medication. 6. Gastrointestinal prophylaxis. Continue on omeprazole. cc: Leydi Prasad MD
[2018-06-22] MEDS: NORCO-5 PO PRN ×2 (06:29→17:41)
[2018-06-22] MEDS: PRILOSEC PO SCH (06:30)
[2018-06-22 07:41] LABS: HEMATOCRIT 33.9 % (37.0-47.0); HEMOGLOBIN 9.7 g/dL (12.0-16.0); MCH 22.7 PG (27-31); MCHC 28.6 g/dL (33-37); MCV 79.2 FL (81-99); MPV 8.2 FL (7.4-10.4); RBC 4.28 XMIL (4.2-5.4); WBC 3.15 X1000 (4.8-10.8)
[2018-06-22 07:53] LABS: AGAP 13; BUN 14 mg/dL (8-22); CALCIUM 8.2 mg/dL (8.8-10.2); CHLORIDE 100 mmol/L (98-107); COSMO 278; CREATININE 0.6 mg/dL (0.5-0.9); ESTIMATED GFR > 60; GLUCOSE 167 mg/dL (70-104); POTASSIUM 4.6 mmol/L (3.5-5.1); SODIUM 137 mmol/L (136-145); TCO2 24 mmol/L (25-35)
[2018-06-22] MEDS: PRINZIDE 20/12.5MG PO SCH (08:28)
[2018-06-22] MEDS: TEGRETOL PO SCH ×2 (08:28→20:49)
[2018-06-22] MEDS: KEPPRA PO SCH ×3 (08:28→20:49)
[2018-06-22] MEDS: VITAMIN B-12 PO SCH (08:28)
[2018-06-22] MEDS: XARELTO PO SCH (08:28)
[2018-06-22] MEDS: ASPIRIN PO SCH (08:28)
[2018-06-22] MEDS: PROZAC PO SCH (08:28)
[2018-06-22] MEDS: TESSALON PO SCH ×3 (08:29→16:56)
--- NOTE | 2018-06-22 10:24 | Diag Imaging Result Doc PS360 ---
EXAM: CHEST-2 VIEWS 06/22/2018 HISTORY: bronchitis TECHNIQUE: Two views the chest COMMENT: There are calcified nodes in the left hilum. There is a calcified granuloma in the lingula. The heart size and pulmonary vascularity are within normal limits. Compared to the previous study of 06/18/2018, considering differences in technique, there has been no significant change. IMPRESSION: No evidence of acute disease. Electronically signed by Barak Avila 06/22/2018 10:22 AM
[2018-06-22] MEDS: DUONEB (A & A) INH SCH ×5 (11:15→22:59)
[2018-06-22] MEDS: ROCEPHIN 1 GM in NS 50 ML IV SCH (14:59)
[2018-06-22] MEDS: ROBITUSSIN-DM PO PRN (14:59)
[2018-06-22] MEDS: ZITHROMAX 500 MG/NS 500 MG/250 ML IVPB IV SCH (16:56)
[2018-06-22] MEDS: FERROUS SULFATE PO SCH (20:49)
--- NOTE | 2018-06-22 23:24 | PROGRESS NOTE ---
DATE: 06/22/2018 SUBJECTIVE: The patient is resting comfortably in bed. No acute events noted overnight. OBJECTIVE: Vital Signs: Temperature 98.2 degrees, blood pressure 130/69, heart rate 91, respirations 18, O2 saturation 96% on room air. General: This is a morbidly obese female, lying in bed, in no acute distress. Heart: S1, S2 normal. Tachycardic. Lungs: Equal air entry bilaterally. No wheezing, no rales. Abdomen: Positive bowel sounds. Soft, obese, nontender, nondistended. Extremities: No edema, no cyanosis. Neurologic: The patient is alert and oriented x3. LABS: Reviewed. ASSESSMENT AND PLAN: 1. Acute bronchitis. Continue with the treatment regimen. The patient is slowly improving. 2. Recurrent pulmonary embolism, with history of deep venous thrombosis. Continue on Xarelto. 3. Morbid obesity. Aware. 4. Chronic back pain. Continue with p.r.n. pain medication. 5. Gastrointestinal prophylaxis. Continue on omeprazole. cc: Leydi Prasad MD
[2018-06-23] MEDS: DUONEB (A & A) INH SCH ×3 (03:25→11:42)
[2018-06-23] MEDS: PRILOSEC PO SCH (06:50)
[2018-06-23] MEDS: SOLU-MEDROL IV SCH (06:50)
[2018-06-23 08:06] VITALS: BP 139/76
[2018-06-23 08:09] LABS: HEMATOCRIT 33.3 % (37.0-47.0); HEMOGLOBIN 9.5 g/dL (12.0-16.0); MCH 22.9 PG (27-31); MCHC 28.5 g/dL (33-37); MCV 80.4 FL (81-99); MPV 8.5 FL (7.4-10.4); RBC 4.14 XMIL (4.2-5.4); WBC 8.72 X1000 (4.8-10.8)
[2018-06-23 08:15] LABS: AGAP 13; BUN 15 mg/dL (8-22); CALCIUM 8.4 mg/dL (8.8-10.2); CHLORIDE 100 mmol/L (98-107); COSMO 281; CREATININE 0.6 mg/dL (0.5-0.9); ESTIMATED GFR > 60; GLUCOSE 146 mg/dL (70-104); IRON SATURATION 41 %; POTASSIUM 4.3 mmol/L (3.5-5.1); SODIUM 139 mmol/L (136-145); TCO2 26 mmol/L (25-35); TIBC 394 ug/dL; TOTAL IRON 162 ug/dL (49-151); UNBOUND IRON 232 ug/dL (112-346)
[2018-06-23 08:58] LABS: FERRITIN 60 ng/mL (13-150)
[2018-06-23] MEDS: XARELTO PO SCH (09:18)
[2018-06-23] MEDS: TESSALON PO SCH ×2 (09:18→12:33)
[2018-06-23] MEDS: ASPIRIN PO SCH (09:18)
[2018-06-23] MEDS: FERROUS SULFATE PO SCH (09:18)
[2018-06-23] MEDS: TEGRETOL PO SCH (09:18)
[2018-06-23] MEDS: NORCO-5 PO PRN (09:18)
[2018-06-23] MEDS: PROZAC PO SCH (09:18)
[2018-06-23] MEDS: KEPPRA PO SCH (09:18)
[2018-06-23] MEDS: PRINZIDE 20/12.5MG PO SCH (09:18)
[2018-06-23] MEDS: VITAMIN B-12 PO SCH (09:19)
[2018-06-23] MEDS: ROBITUSSIN-DM PO PRN (09:19)
--- NOTE | 2018-06-26 07:15 | DISCHARGE SUMMARY ---
ADMISSION DATE: 06/18/2018 DISCHARGE DATE: 06/23/2018 FINAL DISCHARGE DIAGNOSES: 1. Acute bronchitis. 2. Morbid obesity. 3. Recurrent pulmonary embolism with a history of deep venous thrombosis. 4. Chronic back pain. 5. Hepatitis C. 6. Seizure disorder. HOSPITAL COURSE: Ms. Abdalla is a 53-year-old female with a history of multiple medical problems who presented to the ER with chest pain. The patient has a known history of recurrent pulmonary embolism. The patient was admitted and a pulmonary arteriogram was done that revealed known bilateral pulmonary emboli with a decreased clot burden. The patient was started on Xarelto. She was also advised to continue on this while upon discharge. The patient was noted to have bronchitis and was treated with antibiotics, steroids and bronchodilator therapy which resulted in improvement in her symptoms. Also, an echocardiogram was done that revealed an ejection fraction of 60 to 65 percent with normal wall motion. There was no evidence of pulmonic insufficiency. The patient was again counseled about smoking cessation. The patient continued to improve clinically and was ultimately cleared for discharge on 06/23/2018. DISCHARGE MEDICATIONS: 1. Augmentin 875/125 one tab oral twice a day. 2. Medrol Dosepak 4 mg use as directed. 3. Xarelto 20 mg oral with supper daily. 4. DuoNeb 3 mL inhaled every 4 hours p.r.n. for shortness of breath. 5. Ultram 50 mg p.o. every 6 hours p.r.n. for pain. 6. Ferrous sulfate 325 mg p.o. at bedtime. 7. Vitamin B12 5000 mcg oral daily. 8. Carbamazepine 200 mg p.o. twice a day. 9. Prozac 20 mg p.o. daily. 10. Keppra 500 mg p.o. 3 times a day. 11. Lisinopril/hydrochlorothiazide 1 tab oral daily. DISCHARGE DIET: Low-sodium diet. ACTIVITY: As tolerated. FOLLOWUP INSTRUCTIONS: The patient will need to follow up with Dr. Pond as scheduled by her clinic. cc: Leydi Prasad MD
== END 2018-06-23 13:17 | disposition home or self-care (01) | DRG 202 ==
LOC: SUPCPDRO → ED 18:20 → 3N 23:35 → SUATTDRO 23:35
PROVIDERS: ATTEND Internal Medicine
CPT/HCPCS: 71010; 71020; 71045; 71046; 71275; 80048; 80053; 80101; 80301; 80307; 80324; 80345; 80346; 80353; 80358; 80361; 80365; 81001; 82550; 82607; 82728; 82746; 82805; 82948; 83540; 83550; 83605; 83735; 83880; 83992; 84484; 85025; 85027; 85610; 85730; 87040; 93005; 93306; 94640; 94760; 94761; 94799; 96361; 96374; 96375; 99285; A9270; G0431; G0434; G0479; G0480; J0456; J0696; J1885; J2060; J2405; J2920; J7030; Q9967; XXXXX

== ENCOUNTER 2018-08-10 19:15 | Inpatient (IN) ==
--- NOTE | 2018-08-10 19:45 | Diag Imaging Result Doc PS360 ---
EXAM: CHEST-1 VIEW HISTORY: chest pain TECHNIQUE: Chest single view COMPARISON: 06/22/2018 FINDINGS: Poor inspiratory effort. Suboptimal exam due to the patient's body habitus. The heart is not enlarged. No consolidation. No pleural effusions identified. IMPRESSION: Mild cardiomegaly. Electronically signed by Juliano Carmichael 08/10/2018 7:43 PM
[2018-08-10 20:00] LABS: BASO# 0.03 X1000 (0.0-0.2); BASO% 0.6 % (0.0-0.8); EOS% 1.9 % (0.0-10.0); HEMATOCRIT 29.7 % (37.0-47.0); HEMOGLOBIN 8.5 g/dL (12.0-16.0); LYMPH# 1.93 X1000 (1.2-3.4); LYMPH% 37.5 % (20.5-51.1); MCHC 28.6 g/dL (33-37); MCV 76.7 FL (81-99); MONO# 0.51 X1000 (0.11-0.59); MONO% 9.9 % (1.7-9.3); MPV 8.8 FL (7.4-10.4); NEUT# 2.57 X1000 (1.4-6.5); NEUT% 50.1 % (42.2-75.2); PLT 331 X1000 (130-400); RBC 3.87 XMIL (4.2-5.4); RDW 18.4 % (11.5-14.5); WBC 5.14 X1000 (4.8-10.8)
[2018-08-10] MEDS ORDERED: ZOFRAN IV ONE (20:11)
[2018-08-10] MEDS ORDERED: DILAUDID IV ONE (20:11)
[2018-08-10 20:19] LABS: AGAP 11; ALB/GLOB RATIO 1.1; ALBUMIN 3.6 g/dL (3.5-5.0); ALKALINE PHOSPHATASE 164 U/L (32-104); BUN 14 mg/dL (8-22); CALCIUM 9.4 mg/dL (8.8-10.2); CHLORIDE 104 mmol/L (98-107); CK PROFILE 72 U/L (24-173); COSMO 281; CREATININE 0.6 mg/dL (0.5-0.9); ESTIMATED GFR > 60; GLUCOSE 119 mg/dL (70-104); GOT 18 U/L (10-30); GPT 15 U/L (10-36); POTASSIUM 4.3 mmol/L (3.5-5.1); SODIUM 140 mmol/L (136-145); TCO2 25 mmol/L (25-35); TOTAL BILIRUBIN < 0.15 mg/dL (0.20-1.00); TOTAL PROTEIN 6.8 g/dL (6.3-8.3)
[2018-08-10 20:25] LABS: INR 0.92; PROTIME 13.2 Seconds (11.0-16.0)
--- NOTE | 2018-08-10 22:21 | Diag Imaging Result Doc PS360 ---
EXAM: CT ANGIOGRM PULMONARY ARTERIES HISTORY: difficulty breathing, hx PTE TECHNIQUE: CT chest with intravenous contrast. Pulmonary arterial protocol with MIP images. COMPARISON: 06/18/2018 FINDINGS: Suboptimal opacification of the pulmonary arteries on the current exam. There are small pulmonary emboli within several branches of the right lower lobe artery. These are smaller than on the prior exam. Other pulmonary emboli on the prior study are no longer seen. No other pulmonary emboli identified. Large hiatal hernia remains. No pleural effusions. Heart is mildly enlarged. The calcified left hilar nodes with granuloma. No consolidation. No bronchiectasis. Prominent axillary lymph nodes remain. IMPRESSION: Small right lower lobe pulmonary emboli which have decreased in size since the prior exam. No new pulmonary emboli. This exam was performed using automated exposure control, adjustment of mA or kV according to patient size, and/or use of iterative reconstruction technique. Electronically signed by Juliano Carmichael 08/10/2018 10:18 PM
--- NOTE | 2018-08-10 23:33 | PROVIDER DOCUMENTATION ---
This chart was entered by Elina Nieto Scribe, acting as scribe for Erick Arambula MD. HPI-Chest Pain - General Chief Complaint: Chest Pain Stated Complaint: cp Time Seen by Provider: 08/10/18 19:25 Source: patient Allergies/Adverse Reactions: Patient Allergies Allergy/AdvReac Type Severity Reaction Status Date / Time Sulfa (Sulfonamide Allergy Severe BLISTERS Verified 08/10/18 19:48 Antibiotics) TO MOUTH, HANDS, LEGS peanut Allergy Mild ITCHING Verified 08/10/18 19:48 AND SNEEZING Home Medications: Home Medication List Medication Instructions Recorded Confirmed Last Taken Type Cyanocobalamin (Vitamin B-12) 5,000 mcg PO DAILY 06/19/18 06/19/18 1 Day Ago History [Vitamin B12] ~06/18/18 Ferrous Sulfate 325 mg PO HS 06/19/18 06/19/18 1 Day Ago History ~06/18/18 Albuterol 2.5MG/Ipratrop 0.5MG 3 ml INH Q4H PRN PRN #30 neb 06/23/18 Unknown Rx [Duoneb] Amoxicillin/Potassium Clav 1 ea PO BID #10 tab 06/23/18 Unknown Rx [Augmentin 875-125 Tablet] Carbamazepine 200 mg PO BID #60 tab 06/23/18 Unknown Rx Fluoxetine HCl [Prozac] 20 mg PO DAILY #30 cap 06/23/18 Unknown Rx Levetiracetam [Keppra] 500 mg PO TID #90 tab 06/23/18 Unknown Rx Lisinopril/Hydrochlorothiazide 1 tab PO DAILY #30 tab 06/23/18 Unknown Rx [Lisinopril-Hctz 20-12.5 mg Tab] Methylprednisolone [Medrol Dosepak] 4 mg PO DIRECTED #1 pkg 06/23/18 Unknown Rx Rivaroxaban [Xarelto] 20 mg PO WSUPPER #30 tab 06/23/18 Unknown Rx Tramadol [Ultram] 50 mg PO Q6H PRN PRN #15 tab 06/23/18 Unknown Rx - History of Present Illness-CP Nature of Presenting Problem: 53 yof c/o left cp radiating into left shoulder. pt states she was laughing when pain suddenly started. pt states it "felt like someone punched her." pt states its hard to take a deep breath. pt has hx of clots and was in er in mar and apr 2018 for 1 week each month for clots. pt was told she had complete blockage on left side. [t also has hx of seizures, and htn. pt is a smoker and has went from 2 packs a day to 4 cigs a day. pt denies nvd, and fever Review of Systems - Adult - REVIEW OF SYSTEMS - ADULT Constitutional: reports: no symptoms reported. denies: fever Eyes: reports: no symptoms reported Ears, Nose, Mouth & Throat: reports: no symptoms reported Cardiovascular: reports: see HPI, chest pain (left side). denies: palpitations, poor circulation, syncope Respiratory: reports: see HPI, shortness of breath (hard to take deep breath). denies: hemoptysis, pleurisy, wheezing Gastrointestinal: reports: no symptoms reported Genitourinary: reports: no symptoms reported Musculoskeletal: reports: no symptoms reported Integumentary: reports: no symptoms reported Neurological: reports: no symptoms reported Psychiatric: reports: no symptoms reported Endocrine: reports: no symptoms reported Hematologic/Lymphatic: reports: no symptoms reported Allergic/Immunologic: reports: no symptoms reported All Other Systems: Reviewed and Negative Past History - Adult - PAST MEDICAL HISTORY-ADULT Review of Records: reports: Old Records Reviewed, Nursing Assessment Review, Medications Reviewed, Social history reviewed & non-contributory. Major Childhood Illnesses: reports: denies history Cardiovascular: reports: blood clots, CHF, HTN Respiratory: reports: denies history Gastrointestinal: reports: GERD, GI bleed, hepatitis (c) Obstetrical/Gynecological: reports: denies history Genitourinary: reports: kidney disease Musculoskeletal: reports: denies history Neurological: reports: Seizures/Epilepsy, TIA Psychiatric: reports: denies history Endocrine/Immune: reports: denies history Other Conditions: reports: denies history - PRIOR SURGERIES/PROCEDURES Surgical/Procedure History: reports: cholecystectomy, hysterectomy, orthopedic (extremity), other - PRIOR HOSPITALIZATIONS Prior Hospitalizations: reports: for other non-related - IMMUNIZATION STATUS Childhood Immunizations: See Nurse Assessment Flu Vaccine: See Nurse Assessment - FAMILY HISTORY Family History: reviewed, not pertinent - SOCIAL HISTORY Smoking: cigarettes, less than 1 pack/day Provider spent 3-5 mins advising pt. on dangers of tobacco.: Discussed manners to quit use, and f/u contacts for add'l counseling. Substance Use: none/never Physical Exam-General - PHYSICAL EXAM-ADULT Initial Vital Signs Reviewed: Yes - CONSTITUTIONAL General Appearance: alert, mild distress, obese, obtunded, other (tearful). negative: lethargic, slow to respond - EYES Eyes: PERRL/EOMI - HEAD, EARS, NOSE, MOUTH & THROAT HENMT: normocephalic/atraumatic, moist mucous membranes, normal ENT inspection - NECK Neck: non-tender, full range of motion, supple, normal inspection - RESPIRATORY Respiratory: chest non-tender, lungs clear, normal breath sounds. negative: accessory muscle use, crackles, rales, rhonchi - CARDIOVASCULAR Cardiovascular: normal peripheral pulses, regular rate, rhythm. 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 nml as tested, grossly normal, no motor/sensory deficits - PSYCHIATRIC Psych/Mental Status: normal mood/affect, normal thought content, normal thought process, oriented x 3, tearful - HEART Score HEART Score: History: Slightly Suspicious HEART Score: ECG: Non-Specific Repolarization Disturbance/LBBB/PM HEART Score: Age: 45-65 Years HEART Score: Risk Factors for Atherosclerotic Disease: 1 or 2 Risk Factors HEART Score: Troponin: < or = Normal Limit Total HEART Score:: 3 Progress - PLAN OF CARE/RESULTS Progress/Plan/Lab Results: Vital Signs - 8 hr 08/10/18 19:23 08/10/18 19:30 08/10/18 19:35 Pulse Rate Blood Pressure 154/99 O2 Sat by Pulse Oximetry 97 94 L 93 L 08/10/18 19:40 08/10/18 19:48 08/10/18 19:50 Pulse Rate Blood Pressure 130/109 O2 Sat by Pulse Oximetry 96 97 96 08/10/18 20:00 08/10/18 20:03 08/10/18 20:10 Pulse Rate Blood Pressure O2 Sat by Pulse Oximetry 98 97 97 08/10/18 20:18 08/10/18 20:20 08/10/18 20:21 Pulse Rate Blood Pressure 136/83 O2 Sat by Pulse Oximetry 96 97 97 08/10/18 20:30 08/10/18 20:32 08/10/18 20:40 Pulse Rate Blood Pressure 130/73 O2 Sat by Pulse Oximetry 98 97 96 08/10/18 20:47 08/10/18 20:50 08/10/18 21:23 Pulse Rate 74 Blood Pressure 118/71 116/65 O2 Sat by Pulse Oximetry 97 99 97 08/10/18 21:32 08/10/18 21:47 08/10/18 22:02 Pulse Rate 78 67 73 Blood Pressure 109/63 125/68 108/73 O2 Sat by Pulse Oximetry 96 96 96 08/10/18 22:17 08/10/18 22:32 Pulse Rate 71 74 Blood Pressure 122/71 118/79 O2 Sat by Pulse Oximetry 96 96 Laboratory Results - last 24 hr 08/10/18 08/10/18 08/10/18 19:32 19:32 19:32 WBC 5.14 RBC 3.87 L Hgb 8.5 L Hct 29.7 L MCV 76.7 L MCH 22.0 L MCHC 28.6 L RDW Std Deviation 18.4 H Plt Count 331 MPV 8.8 Immature Gran % (Auto) 0.0 Neut % (Auto) 50.1 Lymph % (Auto) 37.5 [place] % (Auto) 9.9 H Eos % (Auto) 1.9 Baso % (Auto) 0.6 Immature Gran # (Auto) 0.00 Neut # (Auto) 2.57 Lymph # (Auto) 1.93 [place] # (Auto) 0.51 Eos # (Auto) 0.10 Baso # (Auto) 0.03 PT INR PTT (Actin FS) Sodium 140 Potassium 4.3 Chloride 104 Carbon Dioxide 25 Anion Gap 11 BUN 14 Creatinine 0.6 Estimated GFR/1.73 m2 > 60 BUN/Creatinine Ratio 23 Glucose 119 H Calculated Osmolality 281 Calcium 9.4 Total Bilirubin < 0.15 L AST 18 ALT 15 Alkaline Phosphatase 164 H Creatine Kinase 72 Troponin T < 0.010 Qyl-R-Ybtgktclxig Pept Total Protein 6.8 Albumin 3.6 Globulin 3.2 Albumin/Globulin Ratio 1.1 08/10/18 08/10/18 19:32 19:32 WBC RBC Hgb Hct MCV MCH MCHC RDW Std Deviation Plt Count MPV Immature Gran % (Auto) Neut % (Auto) Lymph % (Auto) [place] % (Auto) Eos % (Auto) Baso % (Auto) Immature Gran # (Auto) Neut # (Auto) Lymph # (Auto) [place] # (Auto) Eos # (Auto) Baso # (Auto) PT 13.2 INR 0.92 PTT (Actin FS) 28.0 Sodium Potassium Chloride Carbon Dioxide Anion Gap BUN Creatinine Estimated GFR/1.73 m2 BUN/Creatinine Ratio Glucose Calculated Osmolality Calcium Total Bilirubin AST ALT Alkaline Phosphatase Creatine Kinase Troponin T Zqd-[id number]-Pelazteizwx Pept 176 Total Protein Albumin Globulin Albumin/Globulin Ratio Orders Category Date Time Status CT ANGIOGRM PULMONARY ARTERIES [CT] Stat Exams 08/10/18 19:49 Completed cxr [CHEST-1 VIEW] [RAD] Stat Exams 08/10/18 19:28 Completed CBC WITH ELECTRONIC DIFF [HEME] Stat Lab 08/10/18 19:32 Completed CK PROFILE [SP CHEM] Stat Lab 08/10/18 19:32 Completed COMPREHENSIVE METABOLIC PANEL [CHEM] Stat Lab 08/10/18 19:32 Completed PRO B-NATRIURETIC PEPTIDE Stat Lab 08/10/18 19:32 Completed PROTIME WITH INR [COAG] Stat Lab 08/10/18 19:32 Completed PTT [COAG] Stat Lab 08/10/18 19:32 Completed TROPONIN T Stat Lab 08/10/18 19:32 Completed Hydromorphone [Dilaudid] Med 08/10/18 20:11 Discontinued 1 mg IV NOW ONE Ondansetron [Zofran] Med 08/10/18 20:11 Discontinued 4 mg IV NOW ONE EKG [EKG] Stat Ther 08/10/18 19:27 Ordered Result Diagrams: 08/10/18 19:32 08/10/18 19:32 - EKG 1 Time of EKG reading by physician:: 19:21 EKG Read and Signed by:: Erick Arambula EKG Interpretation (*Must complete 3 of following elements*): Abnormal (bord dave) Rate: 92 Rhythm: NSR [place]: normal QRS: RBB (incomplete rbb) [place] Interval: normal - XRAY 1 XRAY: Bilateral XRAY Study: Chest (EXAM: CHEST-1 VIEW HISTORY: chest pain TECHNIQUE: Chest single view COMPARISON: 06/22/2018 FINDINGS: Poor inspiratory effort. Suboptimal exam due to the patient's body habitus. The heart is not enlarged. No consolidation. No pleural effusions identified. IMPRESSION: Mild cardiomegaly. Electronically signed by Juliano Carmichael 08/10/2018 7:43 PM) - CONSULTS/PCP/HOSPITALIST Notification #1 *Consult/PCP/Hospitalist*: Dr Hill Time Discussed: 23:32 Consult Disposition: Will see in ED, Admit Departure - Departure Date of Disposition Decision: 08/10/18 Time of Disposition Decision: 23:33 DIAGNOSIS: Chest pain, Pulmonary embolism Disposition: ADMITTED INPATIENT 09 Certified Medical Emergency: Emergent Condition: Fair Referrals and Follow-Ups: None,PCP [Primary Care Provider] - - Critical Care Note This patient required my direct & personal management of CC.: No Attestation - Physician/ [place] Attestation Patient care was provided by Advanced Practice Provider:: No The physician spent face to face time with patient:: Yes Advanced Practice Provider documentation review:: Supervising physician onsite and consulted in the evaluation and care of this patient. The physician did have a face to face encounter with the patient. This chart was documented by the indicated scribe, (Elina Nieto, [place]) and accurately reflects the services I performed and decisions made by me, Erick Arambula MD, as attested by the provider's signature.
[2018-08-10] MEDS ORDERED: ZOFRAN IV PRN (23:44)
[2018-08-10] MEDS ORDERED: NORCO-7.5 PO PRN (23:44)
[2018-08-10] MEDS ORDERED: SODIUM CHLORIDE 0.9% INJ SCH (23:45)
[2018-08-10] MEDS ORDERED: PROTONIX IV SCH (23:45)
[2018-08-10] MEDS ORDERED: MOBIC PO ONE (23:49)
[2018-08-11] MEDS: NS 1,000 ML IV SCH ×2 (00:36→11:37)
[2018-08-11 00:57] LABS: IRON SATURATION 4 %; TIBC 384 ug/dL; TOTAL IRON 15 ug/dL (49-151); UNBOUND IRON 369 ug/dL (112-346)
[2018-08-11] MEDS ORDERED: NS 500 ML IV ONE (01:17)
--- NOTE | 2018-08-11 01:39 | HISTORY AND PHYSICAL ---
PRIMARY CARE PHYSICIAN: None. MORTUARY BEAUTICIAN/ONCOLOGIST: Dr. Pond. PRESENTING COMPLAINT: Left-sided chest pain. HISTORY OF PRESENTING COMPLAINT: Ms. Abdalla is a 53-year-old female who is known to have hypercoagulable state manifested with multiple DVT's and PE, hypertension, hepatitis C, seizure disorder, who presented to the emergency department because of acute onset of left-sided chest pain since late this evening. The patient refers that she was just at a meeting, laughed hard and then felt this sharp pain at the left parasternal area that radiated to the neck and the left shoulder. It was associated with shortness of breath. Patient cannot really take in a deep breath, so EMS was called and patient was brought into the emergency department, where she was evaluated and, because of her risk factors, it was deemed necessary to admit her, observe her, and rule out any possible coronary artery disease. PAST MEDICAL HISTORY: 1. DVT's, PE's, secondary to hypercoagulable state. 2. Hypertension. 3. Hepatitis C. 4. Seizure disorder. PAST SURGICAL HISTORY: 1. Cholecystectomy. 2. Hysterectomy. 3. Left thumb amputation. 4. Left eye surgery. 5. Hernia repair. ALLERGIES: To sulfa and peanuts. FAMILY HISTORY: Positive for factor V Leiden mutation deficiencies. SOCIAL HISTORY: Patient has a [id number] history of smoking, she says she has been cutting down some. Denies any alcohol. Admits using IV recreational drug in the past, but not recently. REVIEW OF SYSTEMS: Fourteen-point review of system discussed with Ms Abdalla, but unremarkable except what we have in the HPI. PHYSICAL EXAMINATION: VITAL SIGNS: Blood pressure is 118/79, pulse is 74, respiration is 18, temperature is not documented yet. GENERAL: Ms. Abdalla is a 53-year-old female, she was in bed. She did not seem to be in any cardiopulmonary distress. EARS, NOSE, AND THROAT: Mucosa is pink, slightly dry. Anicteric. Acyanotic. NECK: Supple. No JVD. No carotid bruit. HEAD: Normocephalic and atraumatic. RESPIRATORY SYSTEM: Good air entry bilaterally. There is no crepitations, no rhonchi. No accessory muscle use. CARDIOVASCULAR: Regular rate and rhythm. There is no murmurs, no rubs, no gallops. GASTROINTESTINAL: Abdomen is soft, distended but nontender. Bowel sounds present. There is an old umbilical hernia repair scar. EXTREMITIES: No pedal edema. Distal pulses present. CUSTOMER EXPERIENCE INTERN: Patient is awake, alert, oriented. Motor is 5/5 in all extremities. Sensation is intact. Cranial nerves 2-12 have been grossly examined, they are unremarkable. Musculoskeletal, there is remarkable tenderness to palpation on the costochondral joints, especially on the left side. PSYCHIATRIC: The patient is very cooperative and has good insight and judgment. LABORATORY DATA: WBC is 5.14, hemoglobin is 8.5, platelet count of 331,000. Chemistry is also reviewed, it is completely unremarkable. Initial troponin is less than 0.01. ProBNP is 176. EKG shows normal sinus rhythm, normal axis, no ST segment of T-wave abnormality. PREVIOUS IMAGING DATA: An echocardiogram was done 06/20/2018, showed an ejection fraction of 60 to 65 percent with normal wall motion. The patient had a perfusion scan done in 2015, which showed an ejection fraction of 77%. 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 ASSESSMENT: Ms. Abdalla who is extremely hypercoagulable with multiple venous thromboembolisms, currently on chronic Xarelto, presented to the hospital with chest pain. Some of the features are very consistent with musculoskeletal. However, because of her age and other risk factors, it is deemed necessary to admit her and rule out any coronary artery disease. 1. Chest pain with some features suggestive of possible underlying coronary artery disease and some atypical features as well. The patient will be admitted to the medical floor. We will continue trending her troponin's, repeat EKG in the morning, and do a stress test tomorrow morning. 2. Costochondritis. The patient does definitely has wall costochondral joint tenderness. We are going to continue with analgesia as well as anti-inflammatory with Mobic, and re-evaluate her in the morning. 3. Large hiatal hernia noted on CT scan. We are going to continue with antireflux measures. The patient will continue to be on proton pump inhibitor as well. 4. History of hypercoagulable state with multiple venous thromboembolisms in the past. The patient is on chronic Xarelto anticoagulation therapy, follows up with Dr. Pond. We are going to continue with her home medications. 5. Microcytic anemia. Likely due to underlying iron deficiency. We will do the iron studies. 6. Hypertension, controlled. 7. Clinical volume depletion. We will start the patient on gentle hydration overnight and re- evaluate her hydration status in the morning. If it improved, we will discontinue the IV fluids and encourage her to continue p.o. hydration. We have also withheld her hydrochlorothiazide portion of her blood pressure medications. In general, we will admit Ms Abdalla in medical floor. Adequate hydration, pain control, and continue with her home medications, and get a repeat EKG, trend her troponin's, and do a stress test in the morning. If her stress test is normal, and chest pain has subsided, I think we can discharge her tomorrow morning. I have discussed this plan with Ms. Abdalla and she has voiced understanding. cc: Darren Hill MD
[2018-08-11 01:48] LABS: UR AMPHETAMINES QUAL NONE DETECTED (NONE DETECT); UR BARBITUATES QUAL NONE DETECTED (NONE DETECT); UR BENZODIAZEPIN QUAL NONE DETECTED (NONE DETECT); UR CANNABINOIDS QUAL NONE DETECTED (NONE DETECT); UR COCAINE QUAL NONE DETECTED (NONE DETECT); UR METHADONE QUAL NONE DETECTED (NONE DETECT); UR OPIATES QUAL NONE DETECTED (NONE DETECT); UR OXYCODONE QUAL NONE DETECTED (NONE DETECT); UR PCP QUAL NONE DETECTED (NONE DETECT)
[2018-08-11] MEDS ORDERED: VENOFER 200 MG in NS 150 ML IV ONE (04:21)
[2018-08-11 05:46] LABS: BASO# 0.01 X1000 (0.0-0.2); BASO% 0.3 % (0.0-0.8); EOS# 0.12 X1000 (0.0-0.7); EOS% 3.2 % (0.0-10.0); HEMATOCRIT 27.7 % (37.0-47.0); HEMOGLOBIN 7.8 g/dL (12.0-16.0); LYMPH# 1.68 X1000 (1.2-3.4); LYMPH% 45.3 % (20.5-51.1); MCH 21.8 PG (27-31); MCHC 28.2 g/dL (33-37); MCV 77.6 FL (81-99); MONO# 0.33 X1000 (0.11-0.59); MONO% 8.9 % (1.7-9.3); MPV 8.3 FL (7.4-10.4); NEUT# 1.57 X1000 (1.4-6.5); NEUT% 42.3 % (42.2-75.2); PLT 274 X1000 (130-400); RBC 3.57 XMIL (4.2-5.4); RDW 18.5 % (11.5-14.5); WBC 3.71 X1000 (4.8-10.8)
[2018-08-11 06:45] LABS: AGAP 9; ALB/GLOB RATIO 1.3; ALBUMIN 3.3 g/dL (3.5-5.0); ALKALINE PHOSPHATASE 132 U/L (32-104); BUN 12 mg/dL (8-22); CHLORIDE 108 mmol/L (98-107); COSMO 281; CREATININE 0.5 mg/dL (0.5-0.9); ESTIMATED GFR > 60; GLUCOSE 93 mg/dL (70-104); GOT 15 U/L (10-30); GPT 13 U/L (10-36); MAGNESIUM 1.8 mg/dL (1.5-2.7); POTASSIUM 4.2 mmol/L (3.5-5.1); SODIUM 141 mmol/L (136-145); TCO2 24 mmol/L (25-35); TOTAL BILIRUBIN < 0.15 mg/dL (0.20-1.00); TOTAL PROTEIN 5.9 g/dL (6.3-8.3)
--- NOTE | 2018-08-11 06:45 | EKG Report ---
Test Performed on : 08/10/2018 7:21:28 PM Test Reason : chest pain Blood Pressure : / mmHG Vent. Rate : 092 BPM Atrial Rate : 092 BPM P-R Int : 158 ms QRS Dur : 092 ms QT Int : 362 ms P-R-T Axes : 029 -11 011 degrees QTc Int : 447 ms Normal sinus rhythm. Incomplete right bundle branch block Borderline ECG When compared with ECG of 18-JUN-2018 18:58, (Unconfirmed) Borderline criteria for Anterior infarct are no longer present Unconfirmed Result
--- NOTE | 2018-08-11 07:56 | EKG Report ---
Test Performed on : 08/11/2018 07:45:03 AM Test Reason : chest pain Blood Pressure : / mmHG Vent. Rate : 066 BPM Atrial Rate : 066 BPM P-R Int : 184 ms QRS Dur : 108 ms QT Int : 420 ms P-R-T Axes : 063 009 031 degrees QTc Int : 440 ms Poor data quality, interpretation may be adversely affected Normal sinus rhythm. Low voltage QRS Incomplete right bundle branch block Borderline ECG When compared with ECG of 10-AUG-2018 19:21, (Unconfirmed) No significant change was found Unconfirmed Result
[2018-08-11] MEDS: KEPPRA PO SCH ×2 (08:03→14:31)
[2018-08-11] MEDS ORDERED: LEXISCAN ONE (08:10)
[2018-08-11] MEDS ORDERED: VITAMIN B-12 SL SCH (09:00)
[2018-08-11] MEDS ORDERED: FOLIC ACID PO SCH (09:00)
[2018-08-11] MEDS ORDERED: PRINIVIL PO SCH (09:00)
[2018-08-11] MEDS ORDERED: MOBIC PO SCH (09:00)
[2018-08-11] MEDS ORDERED: TEGRETOL PO SCH (09:00)
[2018-08-11] MEDS ORDERED: PROZAC PO SCH (09:00)
[2018-08-11 11:56] VITALS: BP 109/52
[2018-08-11] MEDS ORDERED: TYLENOL PO PRN (13:04)
[2018-08-11] MEDS ORDERED: NEXIUM PO SCH (13:15)
--- NOTE | 2018-08-11 13:25 | PROGRESS NOTE ---
DATE: 08/11/2018 SUBJECTIVE: She was admitted yesterday. She is a patient of, I believe, Dr. Fanny Pond. Had left-sided chest pain. She is a 53 year old, known to have hypercoagulable state manifested by multiple DVTs and pulmonary emboli, history of hypertension, hepatitis C, seizure disorder, who presented to the emergency department because of acute onset of left-sided chest pain, which she felt like it was stabbing and sharp, but this morning she feels more uncomfortable, more of a pressure. It seems to be fairly constant, no precipitating causes. She refers that she had laughed hard and felt the sharp pain in her left parasternal area radiated to the neck and left shoulder associated with shortness of breath, and really could not take any real deep breaths. So, called EMS and came to the emergency room. PAST MEDICAL HISTORY: 1. DVTs, pulmonary emboli secondary to hypercoagulable state. 2. Hypertension. 3. Hepatitis C. 4. Seizure disorder. PAST SURGICAL HISTORY: 1. Cholecystectomy. 2. Hysterectomy. 3. Left thumb amputation. 4. Left eye surgery. 5. Hernia repair. HOSPITAL COURSE: 1. So, admitted with chest pain features, possible underlying coronary artery disease, but it sounds more musculoskeletal. Came to the medical floor and I think they had ordered a Myoview GXT. 2. Costochondritis. Definitely has some costochondral tenderness, and so I have treated her with some Mobic for anti-inflammatory. 3. Large hiatal hernia noted on CAT scan and she has had reflux symptoms. 4. History of hypercoagulable state, multiple venous thromboembolisms in the past. The patient is on chronic Xarelto anticoagulation per Dr. Pond. Going to continue her home medication. 5. Microcytic anemia, likely secondary to iron deficiency. I am checking iron studies. 6. Hypertension, controlled. 7. Clinical volume depletion. So, hydrated her with some normal saline. Review of her orders: She is on Tegretol or carbamazepine 200 mg p.o. b.i.d. She is on B 12 5000 mcg sublingual daily, ferrous sulfate 325 mg at bedtime, Prozac 20 mg a day, hydrocodone 7.5 1 to 2 q. 4 hours p.r.n., Keppra 500 mg t.i.d., Prinivil 10 mg daily, Mobic 15 mg a day, normal saline at 85 mL an hour, gets Zofran 4 mg IV q. 4 hours p.r.n., Protonix 40 mg IV q. 24 hours, Xarelto 20 mg a day. I will change her Protonix to p.o. Nexium. cc: Nader Gill MD
--- NOTE | 2018-08-11 14:14 | Diag Imaging Result Document ---
PROCEDURE NAME: MYOCARDIAL PERF SCAN, STR/REST - 08/11/2018 PROCEDURE: Lexiscan Cardiolite stress test. TECHNIQUE: Lexiscan was infused per standard protocol. There was no chest pain. Stress electrocardiogram was negative for ischemia. Following Lexiscan infusion, Cardiolite was injected, 15.4 mCi of Cardiolite was injected for the rest phase, 45.9 mCi of Cardiolite was injected for the stress phase. Gated SPECT images were obtained in standard views. Images revealed significant diaphragmatic chest wall attenuation. There is no evidence of ischemia. Normal left ventricular cavity size. There is a low-grade small to moderate size fixed defect in the left ventricular apex with normal wall motion. This is likely to represent attenuation defect. Low probability of scar. There is no evidence of ischemia. Left ventricular ejection fraction by gated SPECT was 73%. CONCLUSIONS: 1. No chest pain. 2. Negative Lexiscan stress electrocardiogram. 3. There was low-grade moderate-sized fixed defect in the left ventricular apex with normal wall motion and significant chest wall and diaphragmatic attenuation. This is likely to represent attenuation defect. Low probability of scar. 4. Left ventricular ejection fraction 73%. cc: MD Darren Martinez MD
--- NOTE | 2018-08-11 15:12 | DISCHARGE SUMMARY ---
ADMISSION DATE: 08/10/2018 DISCHARGE DATE: 08/11/2018 No primary care physician. Team Assembly Line Machine Operator/oncologist was Dr. Pond. She complained with left-sided chest pain and presented with sharp pain in the beginning and then became a little bit uncomfortable. She did have some costovertebral angle tenderness but it was not completely reproducible. This 53-year-old well known hypercoagulable state, multiple DVTs and pulmonary emboli, hypertension, hepatitis C, seizure disorder, presented to the emergency room department because of acute onset of left-sided chest pain which is described as sharp but had a pressure component. She had a meeting and was laughing real hard, had sharp pain from the left parasternal area back to her neck and left shoulder associated with shortness of breath. Could not take a deep breath. EMS was called and she went to the emergency department. Because of her risk factors felt we need to make sure she is not having unstable angina or new pulmonary emboli. PAST MEDICAL HISTORY: 1. DVTs and pulmonary emboli suggestive of hypercoagulable state. 2. Hypertension. 3. Hepatitis C. 4. Seizure disorder. PAST SURGICAL HISTORY: 1. Cholecystectomy. 2. Hysterectomy. 3. Left thumb amputation. 4. Left eye surgery. 5. Hernia repair. Was admitted. Cardiac enzymes and EKG were obtained and they were negative. No sign of ischemia. She underwent Myoview nuclear study GXT and it was completely unremarkable electrically and no perfusion defects. Left ejection fraction 73%. Lab was unremarkable. No sign of new pulmonary emboli or DVT and she did complain of a little bit of headache but she has had that for a couple days and seemed to get some relief with some Tylenol so felt she could go home and we will discharge her on her home medications. She takes duo nebs q.4 hours p.r.n. is inhalation, carbamazepine 200 mg b.i.d., vitamin B12 5000 units daily, ferrous sulfate 325 mg a day, Prozac 20 mg a day she asked for prescription for that, she takes Keppra 500 mg t.i.d., lisinopril hydrochlorothiazide 20/12.5 one a day, Xarelto 20 mg a day and Ultram 50 mg q.6 hours. So she asked for her Nexium as well for her stomach and so I will get her some Prozac and Nexium and let her go home. cc: Nader Gill MD
[2018-08-11] MEDS ORDERED: XARELTO PO SCH (17:00)
[2018-08-11] MEDS ORDERED: FERROUS SULFATE PO SCH (21:00)
== END 2018-08-11 18:44 | disposition home or self-care (01) | DRG 313 ==
LOC: SUPCPDRO → 4N 19:15 → ED 19:15 → OBSVTOIN 23:56 → SUATTDRO 23:56
PROVIDERS: ATTEND Emergency Medicine
CPT/HCPCS: 71010; 71045; 71275; 78452; 80053; 80101; 80301; 80307; 80324; 80345; 80346; 80353; 80358; 80361; 80365; 82550; 82607; 82728; 82746; 83540; 83550; 83735; 83880; 83992; 84484; 85025; 85610; 85730; 86141; 93005; 93017; 96374; 99285; A9270; A9500; C9113; G0431; G0434; G0479; G0480; J1170; J1756; J2405; J2785; J7030; J7040; Q9967; S0164

== ENCOUNTER 2018-09-23 14:53 | Inpatient (IN) ==
--- NOTE | 2018-09-23 15:38 | Diag Imaging Result Doc PS360 ---
EXAM: CT HEAD W/O CONTRAST INDICATION: Head injury TECHNIQUE: This exam was performed using automated exposure control, adjustment of mA or kV according to patient size, and/or use of iterative reconstruction technique. COMPARISON: 02/08/2018 FINDINGS: There is no definite acute infarct given the limited sensitivity of CT versus MRI. There is no discrete intracranial mass, mass effect, or intracranial hemorrhage. There is a small left maxillary sinus mucus retention cyst. The surrounding soft tissues and bony structures are essentially unremarkable, otherwise. IMPRESSION: No evidence of acute intracranial pathology. Electronically signed by Carlos A Nieto 09/23/2018 3:35 PM
--- NOTE | 2018-09-23 15:39 | Diag Imaging Result Doc PS360 ---
EXAM: CHEST-PORTABLE INDICATION: ams TECHNIQUE: One view COMPARISON: 09/05/2018 FINDINGS: There is a calcified granuloma at the left lower lung zone. The lungs are grossly clear. There is no discrete pleural fluid collection or pneumothorax. The cardiomediastinal silhouette and central vasculature are grossly unremarkable. IMPRESSION: No evidence of acute pathology by plain radiograph. Electronically signed by Carlos A Nieto 09/23/2018 3:37 PM
[2018-09-23 15:49] LABS: UR AMPHETAMINES QUAL NONE DETECTED (NONE DETECT); UR BARBITUATES QUAL NONE DETECTED (NONE DETECT); UR BENZODIAZEPIN QUAL NONE DETECTED (NONE DETECT); UR CANNABINOIDS QUAL NONE DETECTED (NONE DETECT); UR COCAINE QUAL NONE DETECTED (NONE DETECT); UR METHADONE QUAL NONE DETECTED (NONE DETECT); UR OPIATES QUAL NONE DETECTED (NONE DETECT); UR OXYCODONE QUAL NONE DETECTED (NONE DETECT); UR PCP QUAL NONE DETECTED (NONE DETECT)
[2018-09-23 15:56] LABS: URINE SOURCE CLEAN CATCH
[2018-09-23 16:02] LABS: BILIRUBIN URINE NEGATIVE (NEGATIVE); BLOOD URINE NEGATIVE (NEGATIVE); COLOR YELLOW; GLUCOSE URINE NEGATIVE (NEGATIVE); KETONE URINE NEGATIVE (NEGATIVE); LEUKOCYTES URINE NEGATIVE (NEGATIVE); NITRITE URINE NEGATIVE (NEGATIVE); PROTEIN URINE NEGATIVE (NEGATIVE); SP GRAVITY URINE 1.025; TURBIDITY URINE CLEAR (CLEAR); UR EPITHELIAL CELLS <10 /HPF (<10); URINE BACTERIA 1+ /HPF; URINE RBC <10 /HPF (<10); URINE WBC <10 /HPF (<10); UROBILINOGEN URINE NORMAL (NORMAL)
[2018-09-23 16:20] LABS: ALLEN TEST NO; BLOOD TYPE ARTERIAL; HCO3-(ACT) 24.1 mmoll (20.0-26.0); METHB 0.5 % (0.0-1.5); O2(CT) 9.5 mL/dL (15.0-23.0); O2HB 94.7 % (95.0-99.0); PCO2(98.6) 30 mmHg (35-45); PO2(98.6) 96 mmHg (60-100); SAMPLE BLOOD; SAO2 97.7 % (95.0-100.0); pH(98.6) 7.48 (7.35-7.45)
[2018-09-23 16:21] LABS: MODALITY ROOM AIR
[2018-09-23] MEDS ORDERED: TYLENOL PO ONE (16:46)
[2018-09-23 17:10] LABS: BASO# 0.03 X1000 (0.0-0.2); BASO% 0.6 % (0.0-0.8); HEMATOCRIT 25.5 % (37.0-47.0); HEMOGLOBIN 6.8 g/dL (12.0-16.0); LYMPH# 1.57 X1000 (1.2-3.4); LYMPH% 30.8 % (20.5-51.1); MCH 19.7 PG (27-31); MCHC 26.7 g/dL (33-37); MCV 73.7 FL (81-99); MONO# 0.68 X1000 (0.11-0.59); MONO% 13.3 % (1.7-9.3); MPV 9.2 FL (7.4-10.4); NEUT# 2.72 X1000 (1.4-6.5); NEUT% 53.3 % (42.2-75.2); PLT 379 X1000 (130-400); RBC 3.46 XMIL (4.2-5.4); RDW 20.4 % (11.5-14.5)
[2018-09-23 17:18] LABS: AGAP 9; ALB/GLOB RATIO 1.3; ALBUMIN 3.8 g/dL (3.5-5.0); ALKALINE PHOSPHATASE 148 U/L (32-104); BUN 19 mg/dL (8-22); CALCIUM 8.6 mg/dL (8.8-10.2); CHLORIDE 101 mmol/L (98-107); CK PROFILE 83 U/L (24-173); COSMO 267; CREATININE 0.7 mg/dL (0.5-0.9); ESTIMATED GFR > 60; GLUCOSE 107 mg/dL (70-104); GOT 35 U/L (10-30); GPT 13 U/L (10-36); POTASSIUM 5.1 mmol/L (3.5-5.1); SODIUM 132 mmol/L (136-145); TCO2 22 mmol/L (25-35); TOTAL BILIRUBIN < 0.15 mg/dL (0.20-1.00); TOTAL PROTEIN 6.8 g/dL (6.3-8.3)
[2018-09-23 17:35] LABS: INR 0.95; PROTIME 13.5 Seconds (11.0-16.0)
[2018-09-23 17:36] LABS: PTT 24.5 Seconds (22.3-41.8)
[2018-09-23] MEDS ORDERED: NS 1,000 ML IV ONE (17:41)
[2018-09-23] MEDS ORDERED: SODIUM CHLORIDE 0.9% INJ ONE (17:48)
[2018-09-23] MEDS ORDERED: PROTONIX IV ONE (17:48)
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
[2018-09-23] MEDS ORDERED: ZOFRAN IV PRN (18:43)
[2018-09-23] MEDS ORDERED: ZYRTEC PO PRN (18:51)
[2018-09-23 19:29] LABS: IRON SATURATION 2 %; TIBC 377 ug/dL
[2018-09-23 19:30] LABS: TOTAL IRON 6 ug/dL (49-151); UNBOUND IRON 371 ug/dL (112-346)
[2018-09-23] MEDS ORDERED: CARAFATE LIQUID PO SCH (20:00)
[2018-09-23] MEDS ORDERED: NS 250 ML ONE (20:15)
[2018-09-23] MEDS: CARAFATE LIQUID PO SCH (21:00)
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
[2018-09-23] MEDS: KEPPRA PO SCH (21:43)
[2018-09-23] MEDS: TEGRETOL PO SCH (21:43)
[2018-09-23] MEDS: NS 1,000 ML IV SCH (21:47)
[2018-09-23] MEDS: PROTONIX 80 MG in NS 80 ML IV SCH (21:48)
[2018-09-24] MEDS: TYLENOL PO PRN (00:50)
[2018-09-24 06:05] LABS: BASO# 0.02 X1000 (0.0-0.2); BASO% 0.6 % (0.0-0.8); EOS% 3.2 % (0.0-10.0); HEMATOCRIT 28.6 % (37.0-47.0); HEMOGLOBIN 8.3 g/dL (12.0-16.0); LYMPH# 1.16 X1000 (1.2-3.4); LYMPH% 36.9 % (20.5-51.1); MCH 21.8 PG (27-31); MCV 75.3 FL (81-99); MONO# 0.44 X1000 (0.11-0.59); MPV 8.8 FL (7.4-10.4); NEUT# 1.42 X1000 (1.4-6.5); NEUT% 45.3 % (42.2-75.2); PLT 295 X1000 (130-400); RDW 20.1 % (11.5-14.5); WBC 3.14 X1000 (4.8-10.8)
[2018-09-24 06:12] LABS: INR 1.05; PROTIME 14.5 Seconds (11.0-16.0)
[2018-09-24 06:13] LABS: PTT 29.2 Seconds (22.3-41.8)
[2018-09-24 06:35] LABS: AGAP 9; ALB/GLOB RATIO 1.3; ALBUMIN 3.3 g/dL (3.5-5.0); ALKALINE PHOSPHATASE 121 U/L (32-104); BUN 15 mg/dL (8-22); CHLORIDE 109 mmol/L (98-107); CK PROFILE 75 U/L (24-173); COSMO 276; CREATININE 0.5 mg/dL (0.5-0.9); ESTIMATED GFR > 60; GLUCOSE 93 mg/dL (70-104); GOT 16 U/L (10-30); GPT 10 U/L (10-36); POTASSIUM 4.2 mmol/L (3.5-5.1); SODIUM 138 mmol/L (136-145); TCO2 20 mmol/L (25-35); TOTAL BILIRUBIN 0.22 mg/dL (0.20-1.00); TOTAL PROTEIN 5.8 g/dL (6.3-8.3)
[2018-09-24] MEDS: CARAFATE LIQUID PO SCH ×4 (08:00→20:55)
[2018-09-24] MEDS: NS 1,000 ML IV SCH ×2 (08:05→23:08)
[2018-09-24] MEDS: KEPPRA PO SCH ×3 (09:52→20:56)
[2018-09-24] MEDS: FERROUS SULFATE PO SCH ×3 (09:52→20:56)
[2018-09-24] MEDS: VITAMIN B-12 SL SCH (09:52)
[2018-09-24] MEDS: PROZAC PO SCH (09:53)
[2018-09-24] MEDS: TEGRETOL PO SCH ×2 (09:53→20:55)
[2018-09-24] MEDS: PROTONIX 80 MG in NS 80 ML IV SCH ×4 (11:00→23:09)
--- NOTE | 2018-09-24 13:15 | GASTROENTEROLOGY CONSULTATION ---
DATE: 09/24/2018 REASON FOR CONSULTATION: Anemia and syncope. HISTORY OF PRESENT ILLNESS: A 53-year-old lady with a history of hiatal hernia, Shaan lesions, chronic anemia, unfortunately has to be on anticoagulation for a hypercoagulable state, on Xarelto, who comes in with a subacute history of on-and-off dark color stools which she thinks are related to taking iron, but she felt weak and lightheaded and passed out at home. She was found to be anemic and microcytic indices. Dr. Pond is following with iron transfusion. She is admitted for transfusion and possible investigation for any acute lesions. PAST MEDICAL HISTORY: 1. Hiatal hernia. 2. Shaan lesions. 3. Iron deficient anemia. 4. TIA. 5. DVT. 6. Hypertension. PAST SURGICAL HISTORY: Colonoscopy/EGD 2015, cholecystectomy, hysterectomy. SOCIAL HISTORY: Smokes about half a pack a day. Does not drink. FAMILY HISTORY: There is family history of Factor V mutation. ALLERGIES: Sulfa and peanuts. HOME MEDICATION: Iron, lisinopril, Xarelto, Keppra for seizures, Nexium. REVIEW OF SYSTEMS: Otherwise negative. PHYSICAL EXAMINATION: This pleasant lady looks pale. Temperature 98 degrees, heart rate 90, respiratory rate 18, blood pressure 135/67, O2 saturation 97%. There is marked conjunctival pallor.Neck: Supple. Trachea midline. Heart and lungs normal. Abdomen: Soft, nontender, obese. Bowel sounds present. Extremities: Normal. Neurological: Alert and oriented. No focal deficit. DIAGNOSTIC STUDIES: On admission hemoglobin 6.8 and hematocrit 25.73, which came to 28 after transfusion. Her coagulation studies are normal. IMPRESSION: 1. Chronic gastrointestinal blood loss secondary to: A. Shaan lesions. B. Chronic iron deficiency. C. Need for anticoagulation because of hypercoagulable state. D. Chronic iron transfusion. E. Possible acute exacerbation of bleeding. 2. Gastroesophageal reflux. 3. Hypertension. 4. Diabetes. 5. Seizure disorder. 6. Hepatitis C. 7. Transient ischemic attack. 8. Pulmonary emboli. PLAN: Continue PPI. We are holding Xarelto. Talked to Dr. Weems. We will give Lovenox if needed. She is very much afraid of stopping it; last time she did, she had a PE. We will plan on doing upper GI endoscopy tomorrow. cc: Rox Mera MD
--- NOTE | 2018-09-24 14:59 | PROGRESS NOTE ---
DATE: 09/24/2018 SUBJECTIVE: The patient is resting comfortably in bed. OBJECTIVE: Vital Signs: Temperature 97.8 degrees, pulse 77, respiratory rate is 18, blood pressure 121/83, oxygen is 95%. HEENT: Atraumatic, normocephalic. Cardiovascular: S1, S2. Respiratory system: Has evidence of good air entry bilaterally. Abdomen: Soft, nontender. No masses felt. Extremities: No evidence of edema. Central nervous system: No obvious focal deficit noted. LABORATORY DATA: WBCs 3.14. Hematocrit is 28.6 with a platelet count of 295,000. Sodium is 138, potassium 4.2, chloride is 109, bicarb 20, creatinine 0.5. ASSESSMENT AND PLAN: 1. Gastrointestinal bleed. Maintain patient on proton pump inhibitor. Follow up on hemoglobin and hematocrit. Transfuse PRBCs as needed. 2. Iron deficiency anemia. Maintain patient on supplemental iron. 3. History of deep venous thrombosis/pulmonary embolus. Xarelto currently has been placed on hold in light of gastrointestinal bleed. We will consult with Surgery for inferior vena cava filter placement. 4. History of hepatitis C. However, will need to follow up with GI after discharge from the hospital. 5. Gastroesophageal reflux disease. Maintain patient on proton pump inhibitor. 6. History of nephrolithiasis. The patient will need to follow up with Urology post discharge. 7. History of seizure disorder. Continue antiepileptic drugs. Maintain patient on seizure precaution. 8. Anxiety with depression. Resume home medications for these conditions. 9. Tobacco use history. I recommend tobacco cessation. Discussed with the patient. cc: Jose Cheema MD MTDD
[2018-09-24] MEDS: ROBAXIN PO PRN (17:04)
--- NOTE | 2018-09-24 17:39 | GENERAL SURGERY CONSULTATION ---
DATE: 09/24/2018 HPI: This 53-year-old female who has a history of right upper extremity DVT related to PICC line and right lower extremity DVT related to venous ablation. She also has had PEs associated with that. She has been on anticoagulants. All of these were I believe greater than a year ago with her venous ablation being 11/16/2016. She presents now with anemia and presumed upper GI bleed related to her anticoagulation. She also has a history of hepatitis. She notes no claire bleeding. No respiratory symptoms. Bilateral lower extremity edema that is chronic. Dr. Barnes worked her up, says feels as though she has a hypercoagulable disorder although no diagnosis been given. MEDICAL HISTORY: 1. Gastroesophageal reflux, hiatal hernia, history of esophageal ulcer as well as gastric ulcer. 2. Anemia. 3. Nephrolithiasis. 4. History of TIA. 5. History of DVT right arm, right lower extremity with pulmonary embolus, hypertension, hepatitis C, seizure disorder related to traumatic brain injury, TIA, morbidly obesity. SURGICAL HISTORY: Numerous colonoscopies, EGDs by Dr. Alvarado, cholecystectomy, hysterectomy, left thumb amputation, necrotizing fasciitis, left orbital reconstruction, umbilical hernia. SOCIAL HISTORY: She smokes, does not drink currently, does have a distant history of drug abuse. FAMILY HISTORY: Reviewed and noncontributory. REVIEW OF SYSTEMS: Significant for Xarelto at home as well as numerous other medications. PHYSICAL EXAM: Temperature is 98.4 degrees, pulse 88, blood pressure currently is 89/65, has fluctuated between the 1 teens, 130s, oxygen saturation 98%.General: She is alert, no acute distress. HEENT: No scleral icterus. No cervical mass. Cardiovascular: Normal rate. Pulmonary: No increased work of breathing. Abdomen: Obese, soft. There is a scar from an umbilical hernia. Integument: Warm and dry. Peripheral vascular: No lower extremity cellulitis. She does have edema bilaterally but otherwise well perfused. LABS: White count 3, hematocrit 28, was 25 on admission, platelets 295,000, creatinine 0.5. Troponins are normal x2. Urinalysis is clear. UDS is clear. I have also looked at her venous ultrasounds going back. She has had a bilateral lower extremity venous ultrasound 05/08/2018 that shows no evidence of deep or superficial thrombus and then in February 17 showed resolution of the right upper extremity DVT. ASSESSMENT AND PLAN: 53-year-old female who has had a right upper extremity, right lower extremity deep vein thrombosis related to instrumentation, peripherally inserted central catheter line in the arm and ablation in the lower extremity. Unfortunately she had pulmonary embolisms associated with this but is relatively asymptomatic and has been treated for greater than year with anticoagulants since the pulmonary embolism, given her high risk of bleeding and possibility of ongoing bleeding I agree with holding her anticoagulation. From an inferior vena cava filter standpoint I think there is little utility. She does not have any residual clot burden at this time and the vena cava filter itself could be high risk for developing embolus and clot. We will monitor her closely as she has her ongoing workup from, if she is hemodynamically stable, no active bleeding be reasonable to start prophylactic anticoagulation and this may be her best interest going forward as prophylactic anticoagulation without therapy. Continue follow along. No plans for IVC filter at this juncture. cc: Bello Alarcon MD MTDD
[2018-09-24] MEDS ORDERED: LOVENOX SUBQ SCH (19:45)
--- NOTE | 2018-09-25 04:14 | HISTORY AND PHYSICAL ---
ADDENDUM: ASSESSMENT AND PLAN: 1. Upper gastrointestinal bleed. Positive Hemoccult. History of esophagitis, peptic ulcer disease. She will be on Protonix drip. We will get abdominal pelvic CT, serial hemoglobin and hematocrit levels. She is getting 2 units of packed red blood cells. We will consult Dr. Mera. She has seen Dr. Alvarado in the past. 2. Acute blood loss anemia with history of iron deficiency anemia and iron transfusions, blood transfusions. We will consult Dr. Pond. Dictated by VANNESSA Bolivar for Adiel George MD cc: VANNESSA Bolivar MD
--- NOTE | 2018-09-25 04:15 | HISTORY AND PHYSICAL ---
ADDENDUM: ASSESSMENT AND PLAN: 1. Upper gastrointestinal bleed. Protonix drip, Carafate. Transfuse 2 units of blood. Positive blood in the stool. Clear liquids for now. NPO after midnight. Dr. Mera has been consulted. 2. Iron deficiency anemia with acute blood loss anemia with history of iron transfusions and blood transfusions. She is followed by Dr. Pond so we will consult Dr. Pond as we are having to hold the Xarelto. 3. History of hypercoagulable state with deep vein thrombosis and pulmonary embolism in 2016. Has been on Xarelto ever since. Followed by Dr. Pond. Xarelto is currently being held. 4. Hepatitis C history. No treatment. 5. Hypertension. Continue home medications. 6. Seizure disorder. Last seizure 3 months ago. Continue with antiepileptic drugs. 7. History of transient ischemic attack. 8. History of kidney stones 2 weeks ago; was started on Flomax for that. No issues right now. 9. Tobacco abuse. Cessation discussed. Will not do nicotine patch, as it can increase risk for clots. 10.DVT prophylaxis with sequential compression devices. Dictated by VANNESSA Bolivar for Adiel George MD cc: VANNESSA Bolivar MD
[2018-09-25] MEDS: CARAFATE LIQUID PO SCH ×5 (06:21→23:12)
[2018-09-25 08:16] LABS: BASO# 0.01 X1000 (0.0-0.2); BASO% 0.3 % (0.0-0.8); EOS# 0.08 X1000 (0.0-0.7); EOS% 2.2 % (0.0-10.0); HEMATOCRIT 29.1 % (37.0-47.0); HEMOGLOBIN 8.4 g/dL (12.0-16.0); LYMPH# 1.28 X1000 (1.2-3.4); LYMPH% 35.5 % (20.5-51.1); MCH 21.8 PG (27-31); MCHC 28.9 g/dL (33-37); MCV 75.4 FL (81-99); MONO# 0.42 X1000 (0.11-0.59); MONO% 11.6 % (1.7-9.3); NEUT# 1.82 X1000 (1.4-6.5); NEUT% 50.4 % (42.2-75.2); PLT 316 X1000 (130-400); RBC 3.86 XMIL (4.2-5.4); RDW 20.2 % (11.5-14.5); WBC 3.61 X1000 (4.8-10.8)
[2018-09-25] MEDS: PROTONIX 80 MG in NS 80 ML IV SCH (09:00)
[2018-09-25] MEDS: DUONEB (A & A) INH PRN ×2 (11:15→15:11)
--- NOTE | 2018-09-25 11:37 | PROGRESS NOTE ---
DATE: 09/25/2018 SUBJECTIVE: Patient resting in bed not in any obvious distress. OBJECTIVE: Vital Signs: Temperature 98.2 degrees, pulse 73, respiratory rate 18, blood pressure is 130/63, and O2 saturation is 97%. HEENT: Atraumatic, normocephalic. Cardiovascular: S1, S2. Respiratory: Evidence of good air entry bilaterally. Abdomen: Soft, nontender. No masses felt. Extremities: No evidence of edema. Central nervous system: No obvious focal deficits noted. LABORATORY: WBC 3.6, hematocrit is 29.1, with a platelet count of 316,000. ASSESSMENT AND PLAN: 1. Gastrointestinal bleed. Continue patient on proton pump inhibitor. Follow up on hemoglobin and hematocrit. Transfuse PRBC's as needed. 2. Iron deficiency anemia. Maintain patient on supplemental oxygen. 3. History of deep venous thrombosis as well as a PE. The Xarelto has been placed on hold. Surgery consulted for inferior vena cava filter placement. 4. History of hepatitis C. Follow up with GI post discharge from the hospital. 5. Gastroesophageal reflux disease. Continue proton pump inhibitor. 6. History of nephrolithiasis. Follow up with Urology post discharge from the hospital. 7. History of seizure disorder. Continue antiepileptic drugs. Maintain patient on seizure precaution. 8. Anxiety with depression. Continue appropriate medications for these conditions. 9. Tobacco use history. The patient will need to stop smoking cigarettes. cc: Jose Cheema MD MTDD
[2018-09-25] MEDS ORDERED: DIPRIVAN 1% ONE (12:47)
[2018-09-25] MEDS ORDERED: ROBINUL ONE (12:53)
[2018-09-25] MEDS ORDERED: XYLOCAINE-MPF 2% ONE (13:16)
--- NOTE | 2018-09-25 13:44 | OPERATIVE NOTE ---
PROCEDURE DATE: 09/25/2018 PROCEDURE: Esophagogastroduodenoscopy. PREOPERATIVE DIAGNOSIS: 1. Acute gastrointestinal bleed. 2. Anemia secondary to gastrointestinal bleed. POSTOPERATIVE DIAGNOSIS: 1. Hiatal hernia 2. Shaan's lesions. 3. Otherwise normal esophagogastroduodenoscopy. HISTORY: This 53-year-old, white female who has history of DVT and currently on Xarelto, was admitted to hospital with history of melena and symptomatic anemia. She was found to have hemoglobin and hematocrit of 6.6 and 25.5, the indices suggestive of microcytic anemia and iron deficiency anemia. Hemoccult was positive. EGD was done to identify the source and treat accordingly. DESCRIPTION OF PROCEDURE: Informed consent obtained from the patient. The procedure, risks, benefits, alternatives were explained in layman's terms. She understood. All the pertinent questions were answered. The patient was brought to the endoscopy unit and was premedicated as per Anesthesia. After adequate sedation, while she was lying in left lateral position, the gastroscope was introduced into the posterior pharynx and advanced under direct vision into the esophagus. Esophagus in the upper part was normal. Distal esophagus showed about 3 cm hiatal hernia which was mixed hiatal hernia with small paraesophageal component as well. No webs, rings, or varices were seen. Right at the diaphragmatic hiatus, there were linear erosions noted in the stomach suggestive of Shaan's lesion. No active bleeding was seen. Otherwise the stomach was examined both in straight and retroflexed view, which revealed no pathology except for the hiatal hernia and Shaan's lesions. No ulcers, AVM or masses were seen. Scope was then passed through the normal pylorus into the duodenal bulb, and then to the second portion duodenum which appeared to be normal. The scope was then withdrawn. The patient tolerated the procedure well. No complications noted. The patient was then transferred to the recovery area in stable condition. IMPRESSION: 1. Erosive gastritis suggestive of Shaan's lesions. 2. Hiatal hernia, mixed. 3. Otherwise normal esophagogastroduodenoscopy. RECOMMENDATIONS: Her anemia most likely is related to her Shaan's lesions and hiatal hernia. She was on Xarelto. That made her easy to bleed from those lesions. She is currently on iron supplement but she remains anemic. Question will be whether she needs to be continued on Xarelto or not and then also fundoplication should be entertained that will help her not bleed from those Shaan's lesions. In the meantime, continue PPI, continue to check hemoglobin and hematocrit. Transfuse if necessary and follow the antireflux measures. cc: Tate Pugh MD
[2018-09-25] MEDS ORDERED: NS 250 ML ONE (13:50)
[2018-09-25] MEDS: FERROUS SULFATE PO SCH ×3 (15:21→23:11)
[2018-09-25] MEDS: KEPPRA PO SCH ×3 (15:21→23:11)
[2018-09-25] MEDS: PROZAC PO SCH (15:34)
[2018-09-25] MEDS: TEGRETOL PO SCH ×2 (15:34→23:11)
[2018-09-25] MEDS: VITAMIN B-12 SL SCH (15:35)
[2018-09-25] MEDS: NS 1,000 ML IV SCH (15:39)
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
[2018-09-25] MEDS: LOVENOX SUBQ SCH (18:21)
[2018-09-25] MEDS: PRILOSEC PO SCH (23:11)
[2018-09-26] MEDS: DUONEB (A & A) INH SCH ×4 (00:14→20:18)
[2018-09-26] MEDS: NS 1,000 ML IV SCH (06:17)
[2018-09-26] MEDS: CARAFATE LIQUID PO SCH ×3 (06:45→16:23)
[2018-09-26] MEDS: PRILOSEC PO SCH (06:45)
[2018-09-26] MEDS: LOVENOX SUBQ SCH ×2 (06:47→18:08)
--- NOTE | 2018-09-26 10:43 | PROGRESS NOTE ---
DATE: 09/26/2018 SUBJECTIVE: Patient is resting in bed not in obvious distress, some mild abdominal discomfort. OBJECTIVE: Vital Signs: Temperature 98.1 degrees, pulse 86, respiratory rate 18, blood pressure 122/63, and oxygen saturation 98 percent on room air. HEENT: Head normocephalic. No trauma. PERRLA. Neck: Supple. No JVD. No masses. Central trachea. Chest: She does have some end- expiratory wheezing bilaterally and some crepitus at the bases. Abdomen: Soft, nontender, and nondistended. No hepatosplenomegaly. There is some discomfort at the level of the periumbilical area. Extremities: No edema. No clubbing. No cyanosis. Neurological: The patient is alert and oriented x3. No focal deficits. LABORATORY: WBC 3.6, hemoglobin 8.4, hematocrit 75.4, and platelets 316,000. ASSESSMENT AND PLAN: 1. GI bleed, status post upper endoscopy with a Shaan lesion. We will transfuse as needed. Gastroenterology Department following this patient closely. She is still on anticoagulation due to her severe coagulopathy, hematology oncology on board. 2. Iron deficiency anemia. Continue with the same management. Hematology/Oncology on board. 3. History of DVT as well as PE. She has been on Xarelto, but at this moment has been on hold. Continue with Lovenox twice a day as suggested by Hematology/Oncology Department. Surgery has been consulted for IVC filter, but probably is not going to be placed at this moment. 4. History of hepatitis C aware. GI on board. 5. Gastroesophageal reflux disease. Continue with proton pump inhibitors. 6. History of nephrolithiasis. Follow up with Urology Department upon discharge. 7. History of seizure disorder. Continue with antiepileptic drugs. She has been placed back on Keppra. 8. Anxiety and depression. Continue with same management. 9. Tobacco use history. This patient has been highly advised against tobacco use I will continue with daily cessation education. 10. Wheezing and cough. X-ray did not show any abnormality upon admission. I will repeat it again in the morning. I will put this patient on breathing treatment and cough medication. cc: Adiel George MD
[2018-09-26] MEDS: PROZAC PO SCH (11:01)
[2018-09-26] MEDS: KEPPRA PO SCH ×2 (11:01→14:27)
[2018-09-26] MEDS: FERROUS SULFATE PO SCH ×2 (11:01→14:27)
[2018-09-26] MEDS: TEGRETOL PO SCH (11:02)
[2018-09-26] MEDS: VITAMIN B-12 SL SCH (11:02)
[2018-09-26] MEDS: MUCINEX PO SCH (11:04)
[2018-09-26] MEDS: TYLENOL PO PRN (14:01)
--- NOTE | 2018-09-26 17:26 | GASTROENTEROLOGY PROGRESS NOTE ---
DATE: 09/26/2018 SUBJECTIVE: Patient is awake and alert. No acute distress. She had an EGD on 09/17/2018. Indications for anemia related to recent melena/GI bleed. Patient has received blood transfusions. EGD done on 09/25/2018 showed hiatal hernia, Shaan's lesions, otherwise normal EGD. It was felt her anemia and bleeding could most likely be related to her Shaan's lesions and hiatal hernia. Unfortunately, she requires anticoagulation for her history of blood clots and pulmonary embolus. OBJECTIVE: Vital Signs: Temperature 97.8 degrees, pulse 97, blood pressure 99/61. Generally, patient is awake and alert in no acute distress. She denies evidence of black stools today. LABORATORY: Hematology: WBC 3.61 hemoglobin 8.4, hematocrit 29.1, MCV 75.4, platelet 316,000. Chemistry: Sodium 138, potassium 4.2, chloride 109, CO2 of 20, BUN 15, creatinine 0.5, glucose 93. ASSESSMENT AND PLAN: 1. Recent gastrointestinal bleed, melena. 2. Anemia, requiring blood transfusions. 3. Esophagogastroduodenoscopy showing hiatal hernia, erosive gastritis, and Shaan's lesions. Most likely, her bleeding is related to her anticoagulation which she needs for history of blood clots and pulmonary embolus. Dr. Pugh has mentioned a hernia repair due to bleeding from Shaan's lesions. Before recommending that, we would proceed with a small bowel follow-through for further evaluation. She had an EGD in 2016 that showed external hemorrhoids, otherwise normal colonoscopy with no evidence of colon polyps. EGD and colonoscopy done in [address] Alvarado. We will continue PPI. Continue to follow. Follow up on results of a small bowel follow-through. Further plans will be made as needed. I have discussed this cast this case with Dr. Pugh, who has also discussed the case with Dr. Weesm. Dictated by VANNESSA Castillo for Tate Pugh MD cc: VANNESSA Garcia MD [facility]
[2018-09-26] MEDS ORDERED: PROTONIX IV SCH (18:47)
[2018-09-27] MEDS: NS 1,000 ML IV SCH ×2 (00:08→12:39)
[2018-09-27] MEDS: KEPPRA PO SCH ×4 (00:10→20:42)
[2018-09-27] MEDS: MUCINEX PO SCH ×3 (00:10→20:43)
[2018-09-27] MEDS: TEGRETOL PO SCH ×3 (00:10→20:43)
[2018-09-27] MEDS: CARAFATE LIQUID PO SCH ×5 (00:10→20:43)
[2018-09-27] MEDS: PRILOSEC PO SCH ×3 (00:10→20:42)
[2018-09-27] MEDS: FERROUS SULFATE PO SCH ×4 (00:10→20:43)
[2018-09-27] MEDS: DUONEB (A & A) INH SCH ×6 (03:29→23:14)
--- NOTE | 2018-09-27 06:53 | Diag Imaging Result Doc PS360 ---
CHEST-PORTABLE - 09/27/2018 INDICATION: dyspnea COMPARISON: 09/23/2018 FINDINGS: There is a left PICC line in good position with the tip in the lower SVC. Stable granuloma in the left lung base. The lungs are clear. Heart size is normal. No pneumothorax or pleural effusion. IMPRESSION: Left PICC line in good position. No acute disease. Electronically signed by Joe Summers 09/27/2018 6:50 AM
[2018-09-27 07:25] LABS: AGAP 10; ALB/GLOB RATIO 1.2; ALBUMIN 3.3 g/dL (3.5-5.0); ALKALINE PHOSPHATASE 121 U/L (32-104); BUN 3 mg/dL (8-22); CALCIUM 8.1 mg/dL (8.8-10.2); CHLORIDE 111 mmol/L (98-107); COSMO 281; CREATININE 0.6 mg/dL (0.5-0.9); ESTIMATED GFR > 60; GLUCOSE 89 mg/dL (70-104); GOT 20 U/L (10-30); GPT 14 U/L (10-36); POTASSIUM 3.7 mmol/L (3.5-5.1); SODIUM 143 mmol/L (136-145); TCO2 22 mmol/L (25-35); TOTAL BILIRUBIN 0.16 mg/dL (0.20-1.00); TOTAL PROTEIN 6.1 g/dL (6.3-8.3)
[2018-09-27 07:31] LABS: BASO# 0.01 X1000 (0.0-0.2); BASO% 0.3 % (0.0-0.8); EOS# 0.05 X1000 (0.0-0.7); EOS% 1.4 % (0.0-10.0); HEMATOCRIT 29.1 % (37.0-47.0); HEMOGLOBIN 8.3 g/dL (12.0-16.0); LYMPH% 30.6 % (20.5-51.1); MCH 22.1 PG (27-31); MCHC 28.5 g/dL (33-37); MCV 77.6 FL (81-99); MONO# 0.46 X1000 (0.11-0.59); MONO% 12.8 % (1.7-9.3); MPV 9.1 FL (7.4-10.4); NEUT# 1.97 X1000 (1.4-6.5); NEUT% 54.9 % (42.2-75.2); PLT 318 X1000 (130-400); RBC 3.75 XMIL (4.2-5.4); RDW 22.2 % (11.5-14.5); WBC 3.59 X1000 (4.8-10.8)
[2018-09-27] MEDS: LOVENOX SUBQ SCH ×2 (07:39→17:50)
[2018-09-27 08:44] LABS: EOS 2 % (1-10); LYMPHS 32 % (21-51); MONO 4 % (1-9); SEGS 62 % (42-75)
[2018-09-27 08:45] LABS: ANISOCYTOSIS 2+; HYPOCHROM 2+
[2018-09-27] MEDS: PROZAC PO SCH (10:31)
[2018-09-27] MEDS: VITAMIN B-12 SL SCH (10:31)
--- NOTE | 2018-09-27 11:29 | Diag Imaging Result Doc PS360 ---
EXAM: SMALL BOWEL SERIES ONLY INDICATION: anemia TECHNIQUE: Oral barium contrast was administered and the bolus was followed with standard spot images until the bolus reached the colon. COMPARISON: None. FINDINGS: A large hiatal hernia is noted incidentally. In the distal small bowel in the right quadrant, there are a few round filling defects that have the appearance of air bubbles. However, the largest of these did not move significantly between the 20 minute and the final 40 minute spot radiograph. Otherwise, the small bowel is normal in course, caliber, contour, and mucosal relief. Barium is seen in the colon beginning at 40 minutes post administration. The terminal ileum is unremarkable. IMPRESSION: 1.Large hiatal hernia noted incidentally. 2.A few filling defects in the distal small bowel in the left lower quadrant that very likely represent gas droplets. However, the largest of these did not move significantly between the 20 minute and 40 minute film. 3.Otherwise, unremarkable small bowel barium follow-through. Electronically signed by Carlos A Nieto 09/27/2018 11:27 AM
--- NOTE | 2018-09-27 12:13 | PROGRESS NOTE ---
DATE: 09/27/2018 SUBJECTIVE: No acute events overnight. OBJECTIVE: Vital Signs: Temperature 97.8 degrees, pulse 75, respiratory rate 16, blood pressure 154/86, and oxygen saturation 96 on room air. HEENT: Head normocephalic. No trauma. PERRLA. Neck: Supple. No JVD. No masses. Central trachea. Chest: Clear to auscultation. No wheezing. No rales. Abdomen: Soft, nondistended. There is some discomfort at the level of the periumbilical area. Extremities: No edema. No clubbing. No cyanosis. Neurological: The patient is alert and oriented x3. No focal deficits. LABORATORY: WBC 3.5, hemoglobin 8.3, hematocrit 29.1, MCV 77.6, and platelets 318,000. Sodium 143, potassium 3.7, chloride 111, bicarbonate 22, BUN 3, creatinine 0.6 glucose 89, calcium 8.1, and albumin 3.3. ASSESSMENT AND PLAN: 1. GI bleed, status post upper endoscopy with a Shaan lesion, gastritis and hiatal hernia. We will transfuse as needed. The hemoglobin and hematocrit has been stable. She is still on anticoagulation due to severe coagulopathy. Hematology on board. The plan is to do a small- bowel follow-through to see if there is another lesion. There is a possibility of having surgery to fix the hiatal hernia and Shaan lesion during this hospitalization. 2. Iron deficiency anemia. Continue with same management. Hematology/Oncology on board. 3. History of DVT and PE. She has been on Xarelto, but at this moment she is on Lovenox twice a day. 4. History of hepatitis C. Aware. GI on board. 5. GERD. Continue proton pump inhibitors. 6. History of nephrolithiasis. Follow up with Urology Department upon discharge. 7. History of seizure disorder. Continue with Keppra. 8. Anxiety and depression. Continue with same management. 9. Tobacco use. This patient has been highly advised against tobacco use. I will continue with daily cessation education. 10. Wheezing and cough. This is getting better. Continue with the same management. Chest x-ray today did not show any acute disease. cc: Adiel George MD
--- NOTE | 2018-09-27 12:26 | HEMO/ONC PROGRESS NOTE ---
DATE: 09/27/2018 The patient is now status post EGD without any active bleeding noted. Her hemoglobin has stabilized. She is currently on therapeutic Lovenox. The patient can remain on Lovenox as an outpatient to ensure that she has no further bleeding episodes. She could be on Lovenox for 4 to 6 weeks. Gastroenterology has also mentioned possibly looking into hernia repair. This would also allow time for surgical planning if that is what will transpire. Lovenox can be stopped easily. We can follow up with the patient once she is discharged and resume Xarelto when appropriate. We will continue to follow along peripherally and will be available as needed. Dictated by KEVIN Aguilar for Fanny Pond MD cc: Fanny Pond MD [facility]
--- NOTE | 2018-09-27 14:45 | GASTROENTEROLOGY PROGRESS NOTE ---
DATE: 09/27/2018 SUBJECTIVE: The patient denies complaints at present time. She denies any visible blood in the stool or black stools. She had a small bowel follow-through this morning. Findings showed large hiatal hernia. A few filling defects in the distal small bowel in the left lower quadrant, likely representing gas droplets. Otherwise unremarkable small bowel follow-through. The patient is asking for regular diet. She is currently tolerating a full liquid diet. OBJECTIVE: Vital Signs: Temperature 97.8 degrees, pulse 79, respirations 21, blood pressure 154/86. General: The patient is awake and alert, in no acute distress. LABORATORY DATA: Hematology: WBC 3.59, hemoglobin 8.3, hematocrit 29.1, MCV 77.6, platelets 318,000. Chemistry: Sodium 143, potassium 3.7, chloride 111, CO2 of 22, BUN 3, creatinine 0.6, glucose 89. ASSESSMENT AND PLAN: 1. Recent gastrointestinal bleed, melena. Esophagogastroduodenoscopy showing large hiatal hernia, erosive gastritis, and Shaan lesion. 2. Anemia. The patient has received blood transfusions. 3. Coagulopathy. The patient is currently on Lovenox injections. 4. History of deep venous thrombosis and pulmonary embolism. The patient had been on Xarelto. She is currently on Lovenox. Continue proton pump inhibitor. Continue to monitor hemoglobin and hematocrit. Unfortunately, the patient has had gastrointestinal bleed possibly related to Shaan lesions related to large hiatal hernia. She is at high risk for deep venous thrombosis and pulmonary embolism if she comes off of anticoagulation. Option discussed of hernia repair with Stewart fundoplication. Small bowel follow-through did not show any evidence of active bleeding. We will discuss with the patient, benefits versus risks of surgical procedure to correct her hiatal hernia. Further plans will be made as needed. I have discussed this case with Dr. Pugh. Will advance her diet to a gastrointestinal soft diet. I have discussed this case with Dr. Weems. Dictated by VANNESSA Castillo for Tate Pugh MD cc: VANNESSA Garcia MD [facility]
[2018-09-27] MEDS: ROBAXIN PO PRN (20:43)
[2018-09-27] MEDS: TYLENOL PO PRN (20:43)
[2018-09-28] MEDS: DUONEB (A & A) INH SCH ×6 (03:52→23:05)
[2018-09-28] MEDS: NS 1,000 ML IV SCH ×3 (04:51→18:17)
[2018-09-28] MEDS: LOVENOX SUBQ SCH ×2 (06:07→18:08)
[2018-09-28] MEDS: CARAFATE LIQUID PO SCH ×4 (06:07→20:37)
[2018-09-28] MEDS: PRILOSEC PO SCH ×2 (06:07→20:37)
[2018-09-28 07:49] LABS: BASO# 0.01 X1000 (0.0-0.2); BASO% 0.3 % (0.0-0.8); EOS# 0.07 X1000 (0.0-0.7); EOS% 2.4 % (0.0-10.0); HEMOGLOBIN 8.5 g/dL (12.0-16.0); LYMPH# 0.97 X1000 (1.2-3.4); LYMPH% 33.7 % (20.5-51.1); MCH 22.4 PG (27-31); MCHC 28.3 g/dL (33-37); MCV 79.2 FL (81-99); MONO# 0.38 X1000 (0.11-0.59); MONO% 13.2 % (1.7-9.3); MPV 8.9 FL (7.4-10.4); NEUT# 1.45 X1000 (1.4-6.5); NEUT% 50.4 % (42.2-75.2); PLT 303 X1000 (130-400); RBC 3.79 XMIL (4.2-5.4); RDW 23.4 % (11.5-14.5); WBC 2.88 X1000 (4.8-10.8)
[2018-09-28 08:11] LABS: AGAP 10; BUN 7 mg/dL (8-22); CALCIUM 8.4 mg/dL (8.8-10.2); CHLORIDE 107 mmol/L (98-107); COSMO 281; CREATININE 0.6 mg/dL (0.5-0.9); ESTIMATED GFR > 60; GLUCOSE 94 mg/dL (70-104); POTASSIUM 3.7 mmol/L (3.5-5.1); SODIUM 142 mmol/L (136-145); TCO2 25 mmol/L (25-35)
[2018-09-28] MEDS: KEPPRA PO SCH ×3 (08:21→20:37)
[2018-09-28] MEDS: TEGRETOL PO SCH ×2 (08:21→20:37)
[2018-09-28] MEDS: PROZAC PO SCH (08:21)
[2018-09-28] MEDS: VITAMIN B-12 SL SCH (08:22)
[2018-09-28] MEDS: MUCINEX PO SCH ×2 (08:22→20:37)
[2018-09-28] MEDS: FERROUS SULFATE PO SCH ×3 (08:25→20:37)
--- NOTE | 2018-09-28 11:23 | PROGRESS NOTE ---
DATE: 09/28/2018 SUBJECTIVE: The patient has no complaints. She states that she is feeling better. She had a good night. OBJECTIVE: Blood pressure is 139/76 with a heart rate of 72, respirations are 20, temperature is 98.9 degrees oral with room air saturations 96 to 99%.HEENT: Head is normocephalic, atraumatic. Mucous membranes are moist. Neck: Supple. Trachea midline. Cardiovascular: Regular rate and rhythm. S1 and S2 are noted. No murmur. Pulmonary: Breath sounds are clear with no increased work of breathing noted. Chest rises and falls symmetrically with respiration. Gastrointestinal: Abdomen is soft and nondistended. It is tender to palpation periumbilical area with bowel sounds in all 4 quadrants. Extremities: No clubbing, cyanosis, or edema. Calves are nontender to palpation bilateral. Neurologic: She is alert and oriented x3. LABORATORY: WBC is 2.8 with hemoglobin 8.5 and hematocrit 30, platelets are 303,000. Sodium is 142, potassium 3.7, BUN 7 with a creatinine 0.6, and glucose of 94. ASSESSMENT AND PLAN: 1. GI bleed, status post upper endoscopy with a Shaan lesion, gastritis, and hiatal hernia. We will continue to monitor her hemoglobin and hematocrit.which are stable at present. She continues on anticoagulation due to severe coagulopathy. Hematology is on board. Dr. Pugh. discussed surgical intervention with risks with the patient, We will await his recommendations. 2. Iron deficiency anemia. We will continue with her current regimen with hematology following. 3. History of DVT and PE. The patient was on Xarelto. We will continue her Lovenox b.i.d. 4. History of hepatitis C. Aware. Gastroenterology is following. 5. Gastroesophageal reflux disease. We will continue protein pump inhibitors. 6. History of nephrolithiasis. She will follow up with urology on an outpatient basis. 7. History of seizure disorder. We will continue her Keppra. 8. Anxiety and depression. Continue with her current regimen. 9. Tobacco use. The patient has been advised once again the perils of continuing to smoke with smoking cessation recommended. Dictated by VANNESSA Martins for Adiel George MD cc: VANNESSA Martins-Asim, MD [facility]
--- NOTE | 2018-09-28 14:52 | GASTROENTEROLOGY PROGRESS NOTE ---
DATE: 09/28/2018 SUBJECTIVE: The patient has had no further GI bleeding. Dr. Pugh had spoken with the patient last evening on benefits versus risks of proceeding with Stewart fundoplication due to hiatal hernia and recent gastrointestinal bleeding most likely related to Shaan lesions. After discussion, the patient did want to discuss with the surgeon the possibility of surgery. OBJECTIVE: Vital Signs: Temperature 98.9 degrees, pulse 72, respirations 20, blood pressure 139/76. LABORATORY: Hematology: WBC 2.88, hemoglobin 8.5, hematocrit 30.0, MCV 79.2. ASSESSMENT AND PLAN: 1. Recent gastrointestinal bleed with esophagogastroduodenoscopy showing Shaan lesion, gastritis and hiatal hernia. Continue to monitor hemoglobin and hematocrit. Dr. Pugh has spoken with the patient regarding options of possibility of surgery, but increased risk. Patient does want to speak with the surgeon on their opinion. Dr. Pugh has spoken with Dr. Alarcon, and he will see the patient. Further plans will be made according to his recommendation. 2. Anemia. Continue to monitor hemoglobin and hematocrit. There have been no further signs of active bleeding. 3. History of deep vein thrombosis and pulmonary embolus. Patient had been on Xarelto; currently Xarelto on hold, and patient is continuing on Lovenox. We will continue to follow and further plans will be made as needed. We will await Dr. Alarcon's recommendation. Further plans will be made as needed. Patient was seen by Dr. Pugh last evening. Dictated by VANNESSA Castillo for Tate Pugh MD cc: VANNESSA Garcia MD
--- NOTE | 2018-09-28 20:17 | GENERAL SURGERY PROGRESS NOTE ---
DATE: 09/28/2018 SUBJECTIVE: Overall doing about the same. No fevers. No tachycardia. OBJECTIVE: Vital Signs: Blood pressure 142/72, oxygen saturation 100 percent on room air. General: She is alert. Abdomen: Soft. LAB STUDIES: White count is 2, hematocrit is 30. This has been stable for several checks now. Creatinine is 0.6. ASSESSMENT AND PLAN: This is a 53-year-old female who has a paraesophageal hernia with Shaan's ulcer in the setting of therapeutic anticoagulation. She has had upper gastrointestinal bleeding associated with this. Reviewing her history of venous thromboembolism, she has had both a lower extremity deep venous thrombosis related to a radiofrequency ablation of her greater saphenous vein, and an upper extremity deep venous thrombosis related to a peripherally inserted central catheter line placement. She has had a workup for hypercoagulable disorder that failed to result in a diagnosis other than idiopathic hypercoagulable disorder. I feel that both of her clots were procedural related in nature. Regarding the pulmonary embolus, after she has been treated for an adequate period of time, it would be reasonable to stop her anticoagulation, especially in the setting of bleeding complication. I have discussed with the patient who seems to understand. With regard to her paraesophageal hernia, she is morbidly obese with a BMI of 48.9, ongoing tobacco use, and recent history of illicit drug use. I quoted her a near 100% risk of paraesophageal hernia recurrence in a short interval if she were to undergo repair of this. I also think she would have a very high chance if, in fact, she does have some occult hypercoagulable disorder of developing another deep venous thrombosis, and even a more catastrophic pulmonary embolus with surgery. Were she to lose 100 pounds and completely stop smoking, paraesophageal hernia repair could be considered. I also suspect that if she were to quit smoking and lose 100 pounds, the paraesophageal hernia would become much less symptomatic, if not asymptomatic, and would promote healing of her Shaan's lesion. This is a complicated situation. I will convene with her sealer sander regarding this. I have reviewed all of her vascular studies and the timing of all her clots, with the exception of her deep venous thromboses, is somewhat ambiguous. I do not have plans for surgical intervention. I think she would be profoundly high risk for both recurrence of her hernia as well as complications associated with this. Right now, she is on therapeutic Lovenox and I think this is a reasonable middle ground. cc: Bello Alarcon MD
[2018-09-28] MEDS: ROBAXIN PO PRN (20:37)
[2018-09-29] MEDS: DUONEB (A & A) INH SCH ×4 (05:03→16:22)
[2018-09-29] MEDS: NS 1,000 ML IV SCH (06:44)
[2018-09-29] MEDS: PRILOSEC PO SCH (06:46)
[2018-09-29] MEDS: CARAFATE LIQUID PO SCH ×3 (06:47→16:48)
[2018-09-29] MEDS: LOVENOX SUBQ SCH (06:48)
[2018-09-29 07:07] LABS: HEMATOCRIT 30.9 % (37.0-47.0); HEMOGLOBIN 8.8 g/dL (12.0-16.0); MCH 23.1 PG (27-31); MCHC 28.5 g/dL (33-37); MCV 81.1 FL (81-99); MPV 8.6 FL (7.4-10.4); RBC 3.81 XMIL (4.2-5.4); RDW 24.5 % (11.5-14.5); WBC 3.36 X1000 (4.8-10.8)
[2018-09-29 07:24] LABS: AGAP 11; BUN 6 mg/dL (8-22); CALCIUM 8.5 mg/dL (8.8-10.2); CHLORIDE 107 mmol/L (98-107); COSMO 278; CREATININE 0.6 mg/dL (0.5-0.9); ESTIMATED GFR > 60; GLUCOSE 90 mg/dL (70-104); POTASSIUM 3.6 mmol/L (3.5-5.1); SODIUM 141 mmol/L (136-145); TCO2 23 mmol/L (25-35)
[2018-09-29] MEDS: KEPPRA PO SCH ×2 (10:51→16:48)
[2018-09-29] MEDS: PROZAC PO SCH (10:51)
[2018-09-29] MEDS: MUCINEX PO SCH (10:51)
[2018-09-29] MEDS: VITAMIN B-12 SL SCH (10:51)
[2018-09-29] MEDS: FERROUS SULFATE PO SCH ×2 (10:52→16:48)
[2018-09-29] MEDS: TEGRETOL PO SCH (10:52)
[2018-09-29 12:42] VITALS: BP 155/122
--- NOTE | 2018-09-30 05:36 | DISCHARGE SUMMARY ---
ADMISSION DATE: 09/23/2018 DISCHARGE DATE: 09/29/2018 DIAGNOSES: 1. Gastrointestinal bleed, status post upper endoscopy, with a Shaan lesion, gastritis, and hiatal hernia. 2. Iron deficiency anemia. 3. History of deep venous thrombosis in the right arm, status post peripherally inserted central catheter placement, deep venous thrombosis in the right leg in November 2016, and bilateral pulmonary emboli in 2015. 4. Hepatitis C, with no treatment. 5. Hypertension. 6. History of seizure disorder. 7. History of transient ischemic attack. 8. History of nephrolithiasis. 9. Tobacco use. CONSULTS: 1. Dr. Fanny Pond, Oncology. 2. Dr. Mera, Gastroenterology. 3. Dr. Chon Alarcon, General Surgery. DIAGNOSTICS: 1. 09/23/2018, chest x-ray revealed no evidence of acute pathology by plain radiograph. 2. 09/23/2009, CT head revealed no evidence of acute intracranial pathology. PROCEDURES: 1. 09/25/2018, EGD revealed erosive gastritis suggestive of Shaan's lesions, hiatal hernia mixed, otherwise normal EGD.. 2. Small-bowel x-ray revealed a large hiatal hernia noted incidentally, and a few filling defects in the distal small bowel in the left lower quadrant that very likely represent gas droplets, otherwise unremarkable small bowel barium follow-through. 3. PICC line placement. HOSPITAL COURSE: Ms. Abdalla presented to the emergency room after having a syncopal episode from a standing position. She was found to have a hemoglobin of 6.8 and hematocrit of 25.5. At this time, she was transfused a total of 2 units of packed cells and underwent EGD as stated above. We monitored serial hemoglobins and hematocrits, and hemoglobin has remained in the 8 to 9.7 range with hematocrit in the 25 to 33 range. She was evaluated by Dr. Chon Alarcon regarding placing an IVC filter. Dr. Alarcon did not feel that an IVC filter was prudent for this patient due to her hypercoagulable state and the fact that she has no residual clot burden. He felt the vena cava filter itself could be at high risk for developing an embolus and clots. While in the hospital, we held her Xarelto. She was evaluated by Dr. Fanny Pond, who is her physician, and due to her hypercoagulable state, she felt that the patient should be placed on prophylactic Lovenox while we were holding Xarelto as the patient did not have any signs of an active bleed. After her EGD, the patient was increased to a full dose Lovenox per Dr. Pond. Dr. Alarcon was asked to re-evaluate the patient regarding repair of her hiatal hernia. He discussed this with Dr. Cherry and Dr. Weems, as well as discussion with the patient. Dr. Alarcon felt that the patient was morbidly obese with a BMI of 48.9, and with her ongoing tobacco use and recent history of illicit drug use, he quoted her 100% risk of paraesophageal hernia recurrence in a short interval, as well as the fact that he felt she would have a very high chance of developing another thrombus with surgery. He did recommend that the patient lose 100 pounds, stop smoking, and come to him for re-evaluation of her hiatal hernia. If she is still symptomatic, he would discuss with her surgical repair. The patient did agree. As stated above, she has had no further bleeding and hemoglobins and hematocrits have remained stable. DISCHARGE PHYSICAL EXAMINATION: Vital Signs: Blood pressure is 143/74 with a heart rate of 84, respirations are 18, temperature is 97.9 degrees, room air saturations 96 to 100 percent. Cardiovascular: Regular rate and rhythm. S1 and S2 are appreciated. Extremities: Calves are nontender to palpation bilaterally with peripheral pulses palpable x4 extremities. Pulmonary: Breath sounds are clear. She has no increased work of breathing noted. Chest rises and falls symmetric with respiration. Gastrointestinal: Abdomen is large, soft, nondistended, nontender, with bowel sounds in all 4 quadrants. Neurologic: She is alert and oriented x3. DISCHARGE MEDICATIONS: 1. DuoNebs q.4 hours p.r.n. 2. Tegretol 200 mg p.o. b.i.d. 3. Zyrtec 100 mg p.o. q.a.m. 4. Vitamin B12 5000 micrograms p.o. daily. 5. Bentyl 20 mg p.o. q.6 hours p.r.n. 6. Ferrous sulfate 325 p.o. t.i.d. 7. Prozac 20 mg p.o. daily. 8. Keppra 500 mg p.o. t.i.d. 9. Lisinopril/hydrochlorothiazide 20/12.5 one q.a.m. 10. Omeprazole 40 mg p.o. b.i.d. 11. Xarelto 20 mg p.o. daily. 12. Carafate 1 g p.o. 4 times a day. FOLLOWUP: 1. She is to follow up with Dr. Fanny Pond in 1 to 2 weeks. She needs to call to schedule appointment, restart Xarelto today in the afternoon, since she received Lovenox in the morning 2. Dr. Cherry; she is to follow up in a month. She needs to call and schedule an appointment. 3. Dr. Chon aburto 4. Her PICC line will be discontinued before discharge. 5. She is being discharged home in stable condition with family members. TIME SPENT: Greater than 30 minute discharge. Dictated by VANNESSA Martins for Adiel George MD cc: VANNESSA Martins MD [facility]
== END 2018-09-29 17:45 | disposition home or self-care (01) | DRG 378 ==
LOC: SUPCPDRO → ED 14:53 → SUATTDRO 20:05 → EDIPHOLD 20:05 → 3N 09-24 13:12
PROVIDERS: ATTEND Internal Medicine
CPT/HCPCS: 36430; 36569; 70450; 71010; 71045; 74250; 80048; 80053; 80101; 80301; 80307; 80324; 80345; 80346; 80353; 80358; 80361; 80365; 81001; 82270; 82550; 82607; 82728; 82746; 82805; 82948; 83540; 83550; 83605; 83735; 83992; 84484; 85025; 85027; 85610; 85730; 86850; 86900; 86901; 86920; 93005; 93306; 94640; 94761; 96365; 96366; 96375; 97162; 97530; 99285; 99291; A9270; C9113; G0431; G0434; G0479; G0480; J1650; J7030; J7050; P9016; S0164; XXXXX

== ENCOUNTER 2018-10-01 08:52 | Inpatient (IN) ==
[2018-10-01] MEDS ORDERED: ZOFRAN IV ONE (09:20)
[2018-10-01] MEDS ORDERED: NS 500 ML IV ONE (09:20)
[2018-10-01] MEDS ORDERED: MORPHINE IV ONE ×2 (09:20→13:14)
--- NOTE | 2018-10-01 09:26 | PROVIDER DOCUMENTATION ---
HPI-General Adult - General Chief Complaint: Extremity Pain Stated Complaint: RETURN/RECHECK Time Seen by Provider: 10/01/18 09:05 Source: patient Allergies/Adverse Reactions: Patient Allergies Allergy/AdvReac Type Severity Reaction Status Date / Time Sulfa (Sulfonamide Allergy Severe BLISTERS Verified 09/23/18 15:54 Antibiotics) TO MOUTH, HANDS, LEGS peanut Allergy Mild ITCHING Verified 09/23/18 15:54 AND SNEEZING Home Medications: Home Medication List Medication Instructions Recorded Confirmed Last Taken Type Cyanocobalamin (Vitamin B-12) 5,000 mcg PO DAILY 06/19/18 10/01/18 1 Month Ago History [Vitamin B12] ~08/23/18 Ferrous Sulfate 325 mg PO TID 06/19/18 10/01/18 09/23/18 History Albuterol 2.5MG/Ipratrop 0.5MG 3 ml INH Q4H PRN PRN #30 neb 06/23/18 10/01/18 1 Day Ago Rx [Duoneb (A & A)] ~09/22/18 Carbamazepine 200 mg PO BID #60 tab 06/23/18 10/01/18 09/23/18 Rx Levetiracetam [Keppra] 500 mg PO TID #90 tab 06/23/18 10/01/18 09/23/18 Rx Fluoxetine HCl [Prozac] 20 mg PO DAILY 30 Days #30 cap 08/11/18 10/01/18 09/23/18 Rx Dicyclomine [Bentyl] 20 mg PO Q6H PRN #20 cap 09/15/18 10/01/18 Unknown Rx Lisinopril/Hydrochlorothiazide 1 ea PO QAM 09/23/18 10/01/18 09/23/18 History [Lisinopril-Hctz 20-12.5 mg Tab] Loratadine [Claritin] 10 mg PO DAILY #30 tab 09/29/18 10/01/18 Unknown Rx Omeprazole [Prilosec] 40 mg PO BID@0700,2100 #60 cap 09/29/18 10/01/18 Unknown Rx Rivaroxaban [Xarelto] 20 mg PO DAILY #0 09/29/18 10/01/18 09/23/18 Rx Sucralfate [Carafate] 1 gm PO 4XDAY #160 tab 09/29/18 10/01/18 Unknown Rx - History of Present Illness -Gen Adult Nature of Presenting Problems: Patient is a 53 yowf who complains of left arm pain, swelling, and erythema since Tuesday after having a PICC line removed. She was hospitalized for 6 days due to an upper GI bleed. Hx of dvt and pe. States diagnosed with pe in March 2018 and has had chest pain and SOB since PICC line was removed also. On Xarelto. Denies fever or any other symptoms. She is non-toxic in appearance. Review of Systems - Adult - REVIEW OF SYSTEMS - ADULT Constitutional: reports: no symptoms reported. denies: chills, fever Eyes: reports: no symptoms reported Ears, Nose, Mouth & Throat: reports: no symptoms reported Cardiovascular: reports: no symptoms reported Respiratory: reports: no symptoms reported Gastrointestinal: reports: no symptoms reported Genitourinary: reports: no symptoms reported Musculoskeletal: reports: see HPI, other (left arm pain/swelling) Integumentary: reports: see HPI, other (left arm erythema) Neurological: reports: no symptoms reported Psychiatric: reports: no symptoms reported Endocrine: reports: no symptoms reported Hematologic/Lymphatic: reports: no symptoms reported Allergic/Immunologic: reports: no symptoms reported All Other Systems: Reviewed and Negative Past History - Adult - PAST MEDICAL HISTORY-ADULT Review of Records: reports: Old Records Reviewed, Nursing Assessment Review, Me dications Reviewed, Social history reviewed & non-contributory. Major Childhood Illnesses: reports: denies history Cardiovascular: reports: blood clots, CHF, HTN Respiratory: reports: denies history Gastrointestinal: reports: GERD, GI bleed, hepatitis (c) Obstetrical/Gynecological: reports: denies history Genitourinary: reports: kidney disease Musculoskeletal: reports: denies history Neurological: reports: Seizures/Epilepsy, TIA Psychiatric: reports: denies history Endocrine/Immune: reports: denies history Other Conditions: reports: denies history - PRIOR SURGERIES/PROCEDURES Surgical/Procedure History: reports: hysterectomy, other, cholecystectomy - PRIOR HOSPITALIZATIONS Prior Hospitalizations: reports: for other non-related - IMMUNIZATION STATUS Childhood Immunizations: See Nurse Assessment Flu Vaccine: See Nurse Assessment - FAMILY HISTORY Family History: reviewed, not pertinent - SOCIAL HISTORY Smoking: cigarettes, less than 1 pack/day Physical Exam-General - PHYSICAL EXAM-ADULT Initial Vital Signs Reviewed: Yes - CONSTITUTIONAL General Appearance: alert, no apparent distress. negative: lethargic, slow to respond - EYES Eyes: PERRL/EOMI, pink conjunctivae - HEAD, EARS, NOSE, MOUTH & THROAT HENMT: normocephalic/atraumatic, moist mucous membranes - NECK Neck: non-tender, full range of motion, supple, normal inspection - RESPIRATORY Respiratory: chest non-tender, lungs clear, normal breath sounds, no pleuratic chest pain, no respiratory distress, no accessory muscle use - CARDIOVASCULAR Cardiovascular: normal peripheral pulses, regular rate, rhythm, no gallop, no murmur - GASTROINTESTINAL (ABDOMEN) Abdominal Exam: normal bowel sounds, non tender, soft, no organomegaly, no pulsatile mass - MUSCULOSKELETAL Back Exam: normal inspection Extremity: normal gait, normal capillary refill, erythema (Entire left arm), swelling, tenderness (Entire left arm- more tenderness in left upper arm is noted.). negative: deformity, pulse deficit, slow capillary refill Peripheral Pulses: radial (R): 3+, radial (L): 3+ - SKIN Integumentary: normal color, warm/dry. negative: cyanosis, diaphoresis, jaundice, mottled, pallor - NEUROLOGIC Neurologic: grossly normal, no motor/sensory deficits - PSYCHIATRIC Psych/Mental Status: normal mood/affect, normal thought content, normal thought process, oriented x 3 Progress - PLAN OF CARE/RESULTS Progress/Plan/Lab Results: Vital Signs - 8 hr 10/01/18 09:01 Temperature 98.4 F Pulse Rate 88 Respiratory Rate 18 Blood Pressure 156/94 O2 Sat by Pulse Oximetry 97 Orders Category Date Time Status Cardiac Monitoring DIRECTED Care 10/01/18 09:22 Active Nursing- Obtain EKG ONCE Care 10/01/18 09:20 Active CHEST-2 VIEWS [RAD] Stat Exams 10/01/18 09:20 Ordered BLOOD CULTURE [BLDCUL] Stat Lab 10/01/18 09:20 Uncollected CBC WITH DIFF [HEME] Stat Lab 10/01/18 09:19 Uncollected CK PROFILE [SP CHEM] Stat Lab 10/01/18 09:20 Uncollected COMPREHENSIVE METABOLIC PANEL [CHEM] Stat Lab 10/01/18 09:19 Uncollected D-DIMER [COAG] Stat Lab 10/01/18 09:22 Uncollected LACTATE, PLASMA [CHEM] Stat Lab 10/01/18 09:20 Uncollected MAGNESIUM [CHEM] Stat Lab 10/01/18 09:20 Uncollected PRO B-NATRIURETIC PEPTIDE Stat Lab 10/01/18 09:20 Uncollected PROTIME WITH INR [COAG] Stat Lab 10/01/18 09:20 Uncollected PTT [COAG] Stat Lab 10/01/18 09:20 Uncollected TROPONIN T Stat Lab 10/01/18 09:20 Uncollected UA NIMS W/REFLEX CULT [URINALYSIS] Stat Lab 10/01/18 09:22 Uncollected 0.9% Sodium Chloride Inj [Ns] 500 ml Med 10/01/18 09:20 Active IV 999 mls/hr Morphine Med 10/01/18 09:20 Discontinued 4 mg IV NOW ONE Ondansetron [Zofran] Med 10/01/18 09:20 Discontinued 4 mg IV NOW ONE EKG [EKG] Stat Ther 10/01/18 09:20 Ordered US [Venous U/S Left Arm] Stat Ther 10/01/18 09:20 Ordered Pt in agreement with admission plan. Pt resumed Xarelto after she left the hospital Tuesday and has been compliant with it since. Discussed this with SHAKIR Sales [employer] ADJUST[employer] and she states she will discussed whether Lovenox tx is needed with admitting physician. Will hold Lovenox at this time. Result Diagrams: 10/01/18 09:56 10/01/18 09:56 - XRAY 1 XRAY Study: Chest (IMPRESSION: No evidence of acute pathology by plain radiograph. Electronically signed by Carlos A Nieto 10/01/2018 10:05 AM) - CT/MRI 1 CT Study: Thorax (IMPRESSION: 1.Small filling defects in branches of the right pulmonary artery leading to the right lower lobe indicating pulmonary emboli that were also seen on previous studies. Please see above discussion. 2.Other incidental/nonacute findings detailed above. Electronically signed by Carlos A Nieto 10/01/2018 1:14 PM) - ULTRASOUND (By Radiology) 1 US Study: Upper Ext (Superficial venous thrombosis and deep venous thrombosis extending into subclavian vein (left). Findings/results given to Dr. Ferraro.) - CONSULTS/PCP/HOSPITALIST Notification #1 *Consult/PCP/Hospitalist*: SHAKIR Sales [employer] Time Discussed: 13:04 Reason/Comments: DVT- admission Consult Disposition: Will see in ED, Admit Departure - Departure Date of Disposition Decision: 10/01/18 Time of Disposition Decision: 13:00 DIAGNOSIS: DVT (deep venous thrombosis) Qualifiers: DVT location: upper extremity Affected thrombotic vein of extremity: unspecified vein of extremity Chronicity: acute Laterality: left Qualified Code(s): I82.622 - Acute embolism and thrombosis of deep veins of left upper extremity Disposition: ADMITTED INPATIENT 09 Certified Medical Emergency: Emergent Condition: Stable Referrals and Follow-Ups: None,PCP [Primary Care Provider] - - Critical Care Note This patient required my direct & personal management of CC.: No Attestation - Physician/ MADISON Attestation Patient care was provided by Advanced Practice Provider:: Yes Advanced Practice Provider:: Amaris Chung Advanced Practice Provider documentation review:: The Mid-level provider documentation, treatment plan and medical decision making was reviewed by the physician who agrees with all treatment and medical decision making by the MLP. The physician spent face to face time with patient:: Yes (Dr. Ferraro) Advanced Practice Provider documentation review:: Supervising physician onsite and consulted in the evaluation and care of this patient. The physician did have a face to face encounter with the patient.
--- NOTE | 2018-10-01 10:08 | Diag Imaging Result Doc PS360 ---
EXAM: CHEST-2 VIEWS INDICATION: chest pain, SOB TECHNIQUE: 2 views COMPARISON: 09/27/2018 FINDINGS: There is a calcified granuloma at the left lower lung zone and calcified left hilar lymph nodes indicating prior granulomatous disease, stable. The lungs are grossly clear. There is no discrete pleural fluid collection or pneumothorax. The cardiomediastinal silhouette and central vasculature are grossly unremarkable. IMPRESSION: No evidence of acute pathology by plain radiograph. Electronically signed by Carlos A Nieto 10/01/2018 10:05 AM
[2018-10-01 10:31] LABS: URINE SOURCE CLEAN CATCH
[2018-10-01 10:32] LABS: BILIRUBIN URINE NEGATIVE (NEGATIVE); BLOOD URINE NEGATIVE (NEGATIVE); COLOR YELLOW; GLUCOSE URINE NEGATIVE (NEGATIVE); KETONE URINE NEGATIVE (NEGATIVE); LEUKOCYTES URINE NEGATIVE (NEGATIVE); NITRITE URINE NEGATIVE (NEGATIVE); PH URINE 5.5; PROTEIN URINE NEGATIVE (NEGATIVE); SP GRAVITY URINE 1.014; TURBIDITY URINE CLEAR (CLEAR); UROBILINOGEN URINE NORMAL (NORMAL)
[2018-10-01 10:34] LABS: UR EPITHELIAL CELLS <10 /HPF (<10); URINE BACTERIA 1+ /HPF; URINE RBC <10 /HPF (<10); URINE WBC <10 /HPF (<10)
--- NOTE | 2018-10-01 10:36 | ED EKG INTERP ---
This chart was entered by Tiffany Lopez Scribe, acting as scribe for Kanu Ferraro MD. EKG Interpretation - EKG Time of EKG reading by physician:: 10:20 EKG Read and Signed by:: Kanu Ferraro EKG Interpretation (*Must complete 3 of following elements*): Abnormal Rate: 75 Rhythm: NSR Myra: normal QRS: RBB (incomplete), other (possible anterior infarct) NE Interval: normal ST Wave: normal Comments: Artifact present. -Dr. Ferraro Attestation - Physician/ MADISON Attestation Patient care was provided by Advanced Practice Provider:: Yes Advanced Practice Provider:: Amaris Chung Advanced Practice Provider documentation review:: The Mid-level provider documentation, treatment plan and medical decision making was reviewed by the physician who agrees with all treatment and medical decision making by the MLP. The physician spent face to face time with patient:: No Advanced Practice Provider documentation review:: Supervising physician onsite and consulted in the evaluation and care of this patient. The physician did not have a face to face encounter with the patient. This chart was documented by the indicated scribe, (Tiffany Lopez Scribe) and accurately reflects the services I performed and decisions made by me, Kanu Ferraro MD, as attested by the provider's signature.
[2018-10-01 10:38] LABS: BASO# 0.02 X1000 (0.0-0.2); BASO% 0.4 % (0.0-0.8); EOS% 1.9 % (0.0-10.0); HEMATOCRIT 35.7 % (37.0-47.0); HEMOGLOBIN 10.5 g/dL (12.0-16.0); LYMPH# 1.28 X1000 (1.2-3.4); LYMPH% 24.2 % (20.5-51.1); MCH 23.3 PG (27-31); MCHC 29.4 g/dL (33-37); MCV 79.3 FL (81-99); MONO# 0.63 X1000 (0.11-0.59); MONO% 11.9 % (1.7-9.3); MPV 8.5 FL (7.4-10.4); NEUT# 3.27 X1000 (1.4-6.5); NEUT% 61.6 % (42.2-75.2); PLT 280 X1000 (130-400); RDW 25.3 % (11.5-14.5)
[2018-10-01 10:40] LABS: INR 0.93; PROTIME 13.2 Seconds (11.0-16.0); PTT 31.2 Seconds (22.3-41.8)
[2018-10-01 10:43] LABS: D-DIMER 1.09 ug/mLFEU (0.0-0.52)
[2018-10-01 10:50] LABS: AGAP 10; ALB/GLOB RATIO 1.3; ALBUMIN 3.9 g/dL (3.5-5.0); ALKALINE PHOSPHATASE 142 U/L (32-104); BUN 10 mg/dL (8-22); CALCIUM 9.1 mg/dL (8.8-10.2); CHLORIDE 101 mmol/L (98-107); CK PROFILE 79 U/L (24-173); COSMO 269; CREATININE 0.6 mg/dL (0.5-0.9); ESTIMATED GFR > 60; GLUCOSE 99 mg/dL (70-104); GOT 33 U/L (10-30); GPT 34 U/L (10-36); MAGNESIUM 1.7 mg/dL (1.5-2.7); POTASSIUM 4.1 mmol/L (3.5-5.1); SODIUM 135 mmol/L (136-145); TCO2 24 mmol/L (25-35)
--- NOTE | 2018-10-01 13:16 | Diag Imaging Result Doc PS360 ---
EXAM: CT ANGIOGRM PULMONARY ARTERIES INDICATION: elevated d-dimer, hx of pe, cp/SOB TECHNIQUE: This exam was performed using automated exposure control, adjustment of mA or kV according to patient size, and/or use of iterative reconstruction technique. Thin section axial images and 3-D MIPS were obtained. COMPARISON: 08/10/2018 FINDINGS: There are small filling defects seen in second and higher order branches of the right pulmonary artery leading to the right lower lobe consistent with pulmonary emboli. However, these emboli have been seen on several previous studies. They appear slightly larger than the most recent prior study but are essentially stable when compared to the study dated 06/18/2018. The difference between this and the most recent prior study is probably technical. No new filling defects are identified. There is no evidence of aortic dissection or aneurysm. The heart appears mildly prominent but stable. There is a stable hiatal hernia. There are calcified mediastinal lymph nodes indicating prior granulomatous disease. There is a calcified granuloma in the lingula. There is minimal stable scarring at the left lung base. There is mild subsegmental atelectasis in the lingula and at the medial right lung base. There is no pleural fluid collection and no pneumothorax. Limited views of the upper abdomen are grossly stable. IMPRESSION: 1.Small filling defects in branches of the right pulmonary artery leading to the right lower lobe indicating pulmonary emboli that were also seen on previous studies. Please see above discussion. 2.Other incidental/nonacute findings detailed above. Electronically signed by Carlos A Nieto 10/01/2018 1:14 PM
[2018-10-01] MEDS ORDERED: LOVENOX 1 MG/KG SUBQ ONE (13:39)
[2018-10-01] MEDS ORDERED: BENTYL PO PRN (13:39)
[2018-10-01] MEDS ORDERED: LOVENOX SUBQ ONE (13:45)
[2018-10-01] MEDS: DUONEB (A & A) INH PRN ×2 (15:21→19:14)
--- NOTE | 2018-10-01 15:22 | HISTORY AND PHYSICAL ---
CHIEF COMPLAINT: Left arm swelling and pain. HISTORY OF PRESENT ILLNESS: This is a 53-year-old female with known hypercoagulable state manifested by multiple DVTs and PE, hypertension, hepatitis C, and seizure disorder. She presented to the emergency room complaining of left arm swelling and pain. The patient had a PICC line removed on the 3rd prior to discharge from the hospital, and she states that swelling began during the night and has persisted. She states she has had a DVT in the right arm before, and she was concerned for DVT in this left arm. She underwent a venous Doppler to this left arm, and preliminary report reveals extensive DVT to the left arm. CTA pulmonary was performed, which revealed small filling defects in branches of the right pulmonary artery leading to the right lower lobe, indicating pulmonary emboli that were also present on previous studies. PAST MEDICAL HISTORY: 1. DVTs/PEs secondary to hypercoagulable state. 2. Hypertension. 3. Hepatitis C. 4. Seizure disorder. 5. Recent bleed. PAST SURGICAL HISTORY: Cholecystectomy hysterectomy, left thumb amputation, left eye surgery, hernia repair. ALLERGIES: Sulfa and peanuts. FAMILY HISTORY: Positive for Factor V Leiden mutation deficiencies. SOCIAL HISTORY: She has a [id number] history of smoking. She denies alcohol. Used IV drugs in the past, but not recently. REVIEW OF SYSTEMS: Discussed with patient with pertinent positives stated in the HPI. She denies any syncope, dizziness, palpitations, any cough, fever, chills, any nausea, vomiting, diarrhea, constipation, any black or bloody vomitus or stools, any hematuria, dysuria, frequency, urgency. PHYSICAL EXAMINATION: GENERAL: This is a 53-year-old female, who is sitting up on the stretcher in the emergency room in no distress. VITAL SIGNS: Blood pressure is 190/97 with a heart rate of 79, respirations are 20, temperature is 98.4 degrees with room air saturations ranging that are from 91-96. EYES: Pupils equal, round, react to light. EOMs are intact. Sclerae are anicteric. HEENT: Head is normocephalic, atraumatic. Mucous membranes are moist. NECK: Supple with trachea midline. CARDIOVASCULAR: Regular rate and rhythm. S1 and S2 appreciated. She does have edema to her left arm. Calves are nontender bilateral. PULMONARY: Breath sounds are clear with no increased work of breathing noted. GASTROINTESTINAL: Abdomen is soft, nontender, nondistended with bowel sounds in all 4 quadrants. NEUROLOGIC: She is alert and oriented x3. SKIN: Warm and dry. DIAGNOSTIC STUDIES: WBC is 5 with hemoglobin 10.5, hematocrit 35.7, and platelets of 280,000. INR 0.93. With a D-dimer of 1.09. Sodium 135, potassium 4.1, BUN 10, creatinine 0.6 with a glucose of 99. Urinalysis is essentially negative. Blood cultures are pending. Pulmonary arteriogram revealed small filling defects in the branches of the right pulmonary artery leading to the right lower lobe, indicating pulmonary emboli that were seen on previous studies. Venous Doppler left arm, preliminary read: Extensive superficial and DVT extending to the subclavian on the left. ASSESSMENT AND PLAN: 1. Deep vein thrombosis, left arm. 2. History of hypocoagulable state with multiple venous thromboembolisms. The patient was has been on chronic Xarelto anticoagulation followed by Dr. Pond. We will hold Xarelto, add Lovenox, and consult Dr. Pond in the morning. 3. Hypertension. We will identify her home medications and continue. 4. Recent bleed. Aware. 5. Iron deficiency anemia. We will continue her iron supplements. 6. History of seizure disorder. We will continue her home medication. PLAN: Patient will be admitted to CICU for close monitoring. She will be placed on telemetry. We will identify her home medications and continue these as appropriate with the exception that we will hold her Xarelto, we will start Lovenox 1 mg/kg subcutaneous. We will consult Dr. Fanny Pond in the morning, as she does follow the patient. We will recheck a CBC and CMP in the morning. Recent EGD revealed erosive gastritis suggestive of Shaan's lesions and hiatal hernia mixed. We will continue her Carafate as well as her omeprazole. Further treatments pending hospital course thank. Dictated by VANNESSA Martins for Leydi Prasad MD cc: VANNESSA Martins MD
[2018-10-01] MEDS ORDERED: DILAUDID IV PRN (15:28)
[2018-10-01] MEDS: FERROUS SULFATE PO SCH (17:20)
[2018-10-01] MEDS: KEPPRA PO SCH (17:20)
[2018-10-01] MEDS: PERCOCET-5 PO PRN (17:20)
[2018-10-01] MEDS: CARAFATE PO SCH ×2 (17:20→20:46)
[2018-10-01] MEDS: TEGRETOL PO SCH (20:46)
[2018-10-01] MEDS: PRILOSEC PO SCH (20:46)
--- NOTE | 2018-10-02 00:40 | Extremity Venous Study ---
PROCEDURE NAME: Venous U/S Left Arm - 10/01/2018 PROCEDURE NAME: Left upper extremity venous duplex. REFERRING PHYSICIAN: [*]. READING PHYSICIAN: Ottoniel Fry MD. FIRST COAT OPERATOR: Kim Watt RVT. INDICATION: Left arm redness and recent PICC line placement. FINDINGS: The left internal jugular vein was compressible, patent and without thrombus. The subclavian vein however appeared to show thrombosis and occlusion of flow. There is also a thrombus in the left brachial and left basilic veins, which showed decreased compressibility and flow. INTERPRETATION: There is acute occlusive DVT of the left subclavian vein, probable thrombosis of the left brachial vein, and acute SVT of the left basilic vein. cc: Ottoniel Fry MD
[2018-10-02] MEDS: LOVENOX SUBQ SCH ×2 (02:26→15:02)
[2018-10-02 05:26] LABS: BASO# 0.01 X1000 (0.0-0.2); BASO% 0.2 % (0.0-0.8); EOS# 0.08 X1000 (0.0-0.7); EOS% 1.8 % (0.0-10.0); HEMATOCRIT 32.7 % (37.0-47.0); HEMOGLOBIN 9.4 g/dL (12.0-16.0); LYMPH# 1.38 X1000 (1.2-3.4); LYMPH% 30.7 % (20.5-51.1); MCH 23.2 PG (27-31); MCHC 28.7 g/dL (33-37); MCV 80.7 FL (81-99); MONO# 0.64 X1000 (0.11-0.59); MONO% 14.2 % (1.7-9.3); NEUT# 2.39 X1000 (1.4-6.5); NEUT% 53.1 % (42.2-75.2); PLT 267 X1000 (130-400); RBC 4.05 XMIL (4.2-5.4); RDW 25.3 % (11.5-14.5)
[2018-10-02] MEDS: PRILOSEC PO SCH ×3 (05:34→21:37)
[2018-10-02 05:47] LABS: AGAP 11; BUN 10 mg/dL (8-22); CALCIUM 8.5 mg/dL (8.8-10.2); CHLORIDE 105 mmol/L (98-107); COSMO 279; CREATININE 0.6 mg/dL (0.5-0.9); ESTIMATED GFR > 60; GLUCOSE 112 mg/dL (70-104); SODIUM 140 mmol/L (136-145); TCO2 24 mmol/L (25-35)
[2018-10-02] MEDS: DUONEB (A & A) INH PRN ×2 (07:50→11:17)
[2018-10-02] MEDS: PERCOCET-5 PO PRN ×4 (08:47→22:40)
[2018-10-02] MEDS: VITAMIN B-12 PO SCH (08:48)
[2018-10-02] MEDS: CLARITIN PO SCH (08:48)
[2018-10-02] MEDS: PROZAC PO SCH (08:48)
[2018-10-02] MEDS: KEPPRA PO SCH ×3 (08:48→17:43)
[2018-10-02] MEDS: TEGRETOL PO SCH ×2 (08:49→21:38)
[2018-10-02] MEDS: CARAFATE PO SCH ×4 (08:49→21:38)
[2018-10-02] MEDS: MIRALAX PO SCH (08:49)
[2018-10-02] MEDS: FERROUS SULFATE PO SCH ×3 (08:49→17:43)
--- NOTE | 2018-10-02 11:03 | EKG Report ---
Test Performed on : 10/01/2018 10:08:00 AM Test Reason : chest pain/SOB Blood Pressure : / mmHG Vent. Rate : 075 BPM Atrial Rate : 075 BPM P-R Int : 170 ms QRS Dur : 100 ms QT Int : 396 ms P-R-T Axes : 047 -22 008 degrees QTc Int : 442 ms Normal sinus rhythm. Incomplete right bundle branch block Possible Anterior infarct (cited on or before 05-SEP-2018) Abnormal ECG When compared with ECG of 05-SEP-2018 18:08, (Unconfirmed) Nonspecific T wave abnormality no longer evident in Anterior leads Unconfirmed Result
[2018-10-02] MEDS: AUGMENTIN PO SCH ×2 (13:23→21:38)
[2018-10-02 13:32] LABS: HEPATITIS PROFILE ACUTE SEE COMMENTS
[2018-10-02] MEDS: ZOFRAN IV PRN ×3 (14:35→22:45)
--- NOTE | 2018-10-02 14:39 | PROGRESS NOTE ---
DATE: 10/02/2018 SUBJECTIVE: The patient is resting comfortably. She complains of a productive cough with greenish-colored sputum. She states that the pain in her left arm is bearable. OBJECTIVE: Vital Signs: Temperature 98 degrees, blood pressure 132/75, heart rate 89, respirations 16, O2 saturation 95% on room air. General: This is a morbidly obese elderly female lying in bed in no acute distress. Heart: S1, S2 normal. Regular rate and rhythm. Lungs: Equal air entry bilaterally. Mild expiratory wheezes. Abdomen: Positive bowel sounds. Soft, nontender, nondistended. Extremities: No edema, no cyanosis. Neuro: The patient is alert and oriented x3. LABS: White blood cell count 4.5, hemoglobin 9.4, hematocrit 32, platelets 267,000. Sodium 140, potassium 4, chloride 105, CO2 24, BUN 10, creatinine 0.6, glucose 112. ASSESSMENT AND PLAN: 1. Extensive left upper extremity deep vein thrombosis. Will continue on Lovenox. Will await further recommendations from Hematology. 2. Acute bronchitis. Continue with bronchodilator therapy. Will start the patient on Augmentin. 3. Hepatitis C. Aware. 4. Seizure disorder. Continue on Keppra. 5. Morbid obesity. Aware. 6. Situational depression. Continue on Prozac. 7. Constipation. Continue on MiraLAX. 8. Recent gastrointestinal bleed secondary to Shaan lesion and gastritis. Continue on Protonix and Carafate. 9. Tobacco dependence. The patient has been counseled about smoking cessation. cc: Leydi Prasad MD MTDD
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
[2018-10-03] MEDS: PERCOCET-5 PO PRN ×5 (01:48→21:18)
[2018-10-03] MEDS: ZOFRAN IV PRN ×5 (01:48→21:14)
[2018-10-03] MEDS: LOVENOX SUBQ SCH ×2 (03:35→15:58)
--- NOTE | 2018-10-03 06:47 | Diag Imaging Result Doc PS360 ---
EXAM: CHEST-PORTABLE HISTORY: dyspnea TECHNIQUE: Portable chest single view COMPARISON: 10/01/2018 FINDINGS: The lungs are well expanded. The heart is mildly prominent. The vessels are not distended. There are no infiltrates. No effusion identified. There is a calcified granuloma in the left base. IMPRESSION: Mildly prominent heart Electronically signed by Juliano Carmichael 10/03/2018 6:45 AM
[2018-10-03] MEDS: PRILOSEC PO SCH ×2 (06:52→21:12)
[2018-10-03 07:53] LABS: HEMATOCRIT 32.6 % (37.0-47.0); HEMOGLOBIN 9.3 g/dL (12.0-16.0); MCH 23.6 PG (27-31); MCHC 28.5 g/dL (33-37); MCV 82.7 FL (81-99); MPV 8.5 FL (7.4-10.4); RBC 3.94 XMIL (4.2-5.4); RDW 25.4 % (11.5-14.5); WBC 5.76 X1000 (4.8-10.8)
[2018-10-03 08:06] LABS: AGAP 9; ALB/GLOB RATIO 1.1; ALBUMIN 3.5 g/dL (3.5-5.0); ALKALINE PHOSPHATASE 134 U/L (32-104); BUN 8 mg/dL (8-22); CALCIUM 8.7 mg/dL (8.8-10.2); CHLORIDE 104 mmol/L (98-107); COSMO 276; CREATININE 0.6 mg/dL (0.5-0.9); ESTIMATED GFR > 60; GLUCOSE 99 mg/dL (70-104); GOT 33 U/L (10-30); GPT 26 U/L (10-36); POTASSIUM 4.2 mmol/L (3.5-5.1); SODIUM 139 mmol/L (136-145); TCO2 26 mmol/L (25-35); TOTAL PROTEIN 6.8 g/dL (6.3-8.3)
[2018-10-03] MEDS: VITAMIN B-12 PO SCH (08:48)
[2018-10-03] MEDS: MIRALAX PO SCH (08:49)
[2018-10-03] MEDS: TEGRETOL PO SCH ×2 (08:49→21:12)
[2018-10-03] MEDS: PROZAC PO SCH (08:49)
[2018-10-03] MEDS: AUGMENTIN PO SCH ×2 (08:49→21:12)
[2018-10-03] MEDS: FERROUS SULFATE PO SCH ×3 (08:49→18:00)
[2018-10-03] MEDS: KEPPRA PO SCH ×3 (08:49→18:01)
[2018-10-03] MEDS: CLARITIN PO SCH (08:49)
[2018-10-03] MEDS: CARAFATE PO SCH ×4 (08:49→21:12)
--- NOTE | 2018-10-03 14:59 | PROGRESS NOTE ---
DATE: 10/03/2018 SUBJECTIVE: The patient is resting in bed. Not in any obvious distress. OBJECTIVE: Vital Signs: Temperature 99.3 degrees, pulse 81, respiratory rate 20, blood pressure is 140/76, and oxygen saturation is 99%. HEENT: Atraumatic, normocephalic. Cardiovascular System: S1, S2. Respiratory System: Has evidence of good air entry bilaterally. Abdomen: Soft, nontender. No masses felt. Extremities: Edema in both lower extremities. Central Nervous System: No obvious focal deficit noted. Labs: WBCs 5.76, hematocrit is 32.6, with a platelet count of 243,000. Sodium is 142, potassium 4.2, chloride is 104, bicarb 26, creatinine 0.6. AST 33, alkaline phosphatase 134. ASSESSMENT AND PLAN: 1. Deep venous thrombosis of the left upper extremity. Continue anticoagulation. 2. Seizure disorder. Continue Keppra. Maintain patient on seizure precaution. 3. Morbid obesity. Aware. 4. Situational depression. Continue Prozac. 5. Constipation. Continue MiraLAX. 6. Recent history of gastrointestinal bleed. Continue Protonix as well as Carafate. 7. Acute bronchitis. Continue antibiotics as well as bronchodilator treatment. 8. Disposition. The patient can be discharged home tomorrow. Discussed with social media content manager concerning long-term use of Lovenox. Considering that this patient is not insured, this will be a challenge. cc: Jose Cheema MD [facility]
[2018-10-04] MEDS: ZOFRAN IV PRN ×3 (00:21→11:04)
[2018-10-04] MEDS: PERCOCET-5 PO PRN ×3 (00:21→10:58)
[2018-10-04] MEDS: LOVENOX SUBQ SCH ×2 (02:41→15:06)
[2018-10-04] MEDS: PRILOSEC PO SCH (07:32)
[2018-10-04] MEDS: PROZAC PO SCH (08:27)
[2018-10-04] MEDS: VITAMIN B-12 PO SCH (08:27)
[2018-10-04] MEDS: TEGRETOL PO SCH (08:27)
[2018-10-04] MEDS: CLARITIN PO SCH (08:27)
[2018-10-04] MEDS: KEPPRA PO SCH ×2 (08:27→13:49)
[2018-10-04] MEDS: AUGMENTIN PO SCH (08:28)
[2018-10-04] MEDS: MIRALAX PO SCH (08:30)
[2018-10-04] MEDS: CARAFATE PO SCH ×2 (08:57→13:49)
[2018-10-04] MEDS: FERROUS SULFATE PO SCH ×2 (10:58→13:49)
[2018-10-04 11:30] VITALS: BP 116/68
--- NOTE | 2018-10-04 22:47 | DISCHARGE SUMMARY ---
ADMISSION DATE: 10/01/2018 DISCHARGE DATE: 10/04/2018 PRINCIPAL DIAGNOSIS: Deep venous thrombosis left upper extremity. SECONDARY DIAGNOSES: 1. History of hypercoagulable state with multiple venous thromboembolism in the past. 2. Hypertension. 3. History of recent gastrointestinal bleed. 4. Iron deficiency anemia. 5. Seizure disorder. 6. Hepatitis C virus infection. DISCHARGE MEDICATIONS: Include the following: Lovenox 120 mg subcutaneous every 12 hours, ferrous sulfate 325 mg p.o. 3 times a day, vitamin B12 5000 mcg p.o. daily, DuoNeb 3 mL every 4 hours p.r.n., gabapentin 200 mg p.o. twice a day, Keppra 500 mg p.o. 3 times a day, fluoxetine 20 mg p.o. daily, dicyclomine 20 mg every 6 hours, lisinopril/hydrochlorothiazide 20/12.5 one p.o. daily, omeprazole 40 mg p.o. twice a day, sucralfate 1 g 4 times a day, Loratadine 10 mg p.o. daily. CONSULTATIONS DONE DURING THIS HOSPITAL STAY: Fanny Pond MD, Hematology. PROCEDURES DONE DURING THIS HOSPITAL STAY: Venous Doppler extremity 10/01/2018 and this shows acute occlusive DVT in the left subclavian vein and probable thrombosis of the left brachial vein and also acute SVT in the left basilic vein. On 10/01/2018 she had a pulmonary angiogram done, and it showed a small filling defect in branches of the right pulmonary artery leading to the right lower lobe indicating pulmonary emboli. HOSPITAL COURSE: Ms. Saskia Abdalla is a 51-year-old female who has a history of multiple DVTs as well as PE, hypertension, hepatitis C, seizure disorder. She presented to the hospital because of left arm pain as well as swelling. Doppler study of the left upper arm showed evidence of extensive DVT in the left arm. CTA also notes evidence of PE. The patient's Xarelto was placed on hold, and she was started on Lovenox 1 mg/kg subcutaneous q.12. The patient was seen by the hematology team and would like patient to be discharged on Lovenox. PHYSICAL EXAMINATION ON DISCHARGE: Vital signs: During my evaluation today, vital signs were as follows: Temperature 97.8 degrees, pulse 78, respiratory rate 16, blood pressure 160/68, oxygen 98%. HEENT: Atraumatic, normocephalic. Cardiovascular: S1, S2. Respiratory system: Has evidence of good air entry bilaterally. Abdomen: Soft, nontender. No masses felt. Extremities: No evidence of edema. Central nervous system: No obvious focal deficits noted. LABS: None. PLAN: Discharge home today and follow up with Dr. Fanny Pond in the outpatient. The patient will be going home on Lovenox 120 mg subcutaneous q.12 hours. The patient is uninsured and does not have the means to get Lovenox at this time. I was made to understand that she will be getting samples from Dr. Pond's office for the next 10 days. After she runs out in 10 days, she will get 20 more days after that. cc: Jose Cheema MD MTDD
[2018-10-05 09:53] LABS: HCV BY PCR SEE COMMENTS
== END 2018-10-04 16:05 | disposition home or self-care (01) | DRG 300 ==
LOC: ED 08:52 → 3S 13:56 → SUATTDRO 13:56 → 3N 10-02 14:28
PROVIDERS: ATTEND Internal Medicine
CPT/HCPCS: 71010; 71020; 71045; 71046; 71275; 80048; 80053; 80074; 81001; 82550; 83605; 83735; 83880; 84484; 85025; 85027; 85379; 85610; 85730; 87040; 87522; 93005; 93971; 94640; 94761; 96361; 96374; 96375; 96376; 99285; A9270; J1650; J2270; J2405; J7040; Q9967

== ENCOUNTER 2018-11-10 08:49 | Inpatient (IN) ==
[2018-11-10] MEDS ORDERED: NS 500 ML IV ONE (09:14)
[2018-11-10] MEDS ORDERED: PROTONIX IV ONE (09:15)
[2018-11-10] MEDS ORDERED: SODIUM CHLORIDE 0.9% INJ ONE ×2 (09:15→13:20)
--- NOTE | 2018-11-10 09:19 | PROVIDER DOCUMENTATION ---
HPI-Abdominal Pain/GI Problem - General Chief Complaint: GI Bleed Stated Complaint: PASSING BLOOD Time Seen by Provider: 11/10/18 09:00 Source: patient Allergies/Adverse Reactions: Patient Allergies Allergy/AdvReac Type Severity Reaction Status Date / Time Sulfa (Sulfonamide Allergy Severe BLISTERS Verified 09/23/18 15:54 Antibiotics) TO MOUTH, HANDS, LEGS peanut Allergy Mild ITCHING Verified 09/23/18 15:54 AND SNEEZING Home Medications: Home Medication List Medication Instructions Recorded Confirmed Last Taken Type Cyanocobalamin (Vitamin B-12) 5,000 mcg PO DAILY 06/19/18 10/01/18 1 Month Ago History [Vitamin B12] ~08/23/18 Ferrous Sulfate 325 mg PO TID 06/19/18 10/01/18 09/23/18 History Albuterol 2.5MG/Ipratrop 0.5MG 3 ml INH Q4H PRN PRN #30 neb 06/23/18 10/01/18 1 Day Ago Rx [Duoneb (A & A)] ~09/22/18 Carbamazepine 200 mg PO BID #60 tab 06/23/18 10/01/18 09/23/18 Rx Levetiracetam [Keppra] 500 mg PO TID #90 tab 06/23/18 10/01/18 09/23/18 Rx Fluoxetine HCl [Prozac] 20 mg PO DAILY 30 Days #30 cap 08/11/18 10/01/18 09/23/18 Rx Dicyclomine [Bentyl] 20 mg PO Q6H PRN #20 cap 09/15/18 10/01/18 Unknown Rx Lisinopril/Hydrochlorothiazide 1 ea PO QAM 09/23/18 10/01/18 09/23/18 History [Lisinopril-Hctz 20-12.5 mg Tab] Loratadine [Claritin] 10 mg PO DAILY #30 tab 09/29/18 10/01/18 Unknown Rx Omeprazole [Prilosec] 40 mg PO BID@0700,2100 #60 cap 09/29/18 10/01/18 Unknown Rx Sucralfate [Carafate] 1 gm PO 4XDAY #160 tab 09/29/18 10/01/18 Unknown Rx Enoxaparin [Lovenox] 120 mg SUBQ Q12H syringe 10/04/18 Unknown Rx - History of Present Illness-ABD Nature of Presenting Problems: Patient is a 53 yowf who complains of black, tarry stool, fatigue, and hemoptysis x 3 days. Denies abdominal pain, n/v/d, fever, or any other symptoms. She is on Lovenox 120 mg bid due to dvt. She denies any other symptoms and is non-toxic in appearance. Dark Stools Present?: reports: black, tarry. denies: bright red blood Rectal Bleeding: denies: blood streaks on stool, bloody diarrhea Rectal Pain: reports: none Emesis Description: reports: none Bruising or Bleeding Gums?: No Similar Symptoms Previously?: Yes Review of Systems - Adult - REVIEW OF SYSTEMS - ADULT Constitutional: reports: no symptoms reported. denies: chills, fever Eyes: reports: no symptoms reported Ears, Nose, Mouth & Throat: reports: no symptoms reported Cardiovascular: reports: no symptoms reported Respiratory: reports: see HPI, cough Gastrointestinal: reports: see HPI Genitourinary: reports: no symptoms reported Musculoskeletal: reports: no symptoms reported Integumentary: reports: no symptoms reported Neurological: reports: no symptoms reported Psychiatric: reports: no symptoms reported Endocrine: reports: no symptoms reported Hematologic/Lymphatic: reports: no symptoms reported Allergic/Immunologic: reports: no symptoms reported All Other Systems: Reviewed and Negative Past History - Adult - PAST MEDICAL HISTORY-ADULT Review of Records: reports: Nursing Assessment Review, Medications Reviewed, Social history reviewed & non-contributory. Major Childhood Illnesses: reports: denies history Cardiovascular: reports: blood clots, CHF, HTN Respiratory: reports: denies history Gastrointestinal: reports: GERD, GI bleed, hepatitis (c) Obstetrical/Gynecological: reports: denies history Genitourinary: reports: kidney disease Musculoskeletal: reports: denies history Neurological: reports: Seizures/Epilepsy, TIA Psychiatric: reports: denies history Endocrine/Immune: reports: denies history Other Conditions: reports: denies history - PRIOR SURGERIES/PROCEDURES Surgical/Procedure History: reports: hysterectomy, other, cholecystectomy - PRIOR HOSPITALIZATIONS Prior Hospitalizations: reports: for other non-related - IMMUNIZATION STATUS Childhood Immunizations: See Nurse Assessment Flu Vaccine: See Nurse Assessment - FAMILY HISTORY Family History: reviewed, not pertinent - SOCIAL HISTORY Smoking: quit less than 1 year Substance Use: none presently/history of abuse Alcohol Use Frequency: never Physical Exam-General - PHYSICAL EXAM-ADULT Initial Vital Signs Reviewed: Yes - CONSTITUTIONAL General Appearance: alert, no apparent distress. negative: lethargic, slow to respond - EYES Eyes: PERRL/EOMI, pink conjunctivae - HEAD, EARS, NOSE, MOUTH & THROAT HENMT: normocephalic/atraumatic, moist mucous membranes - NECK Neck: full range of motion, supple, normal inspection - RESPIRATORY Respiratory: chest non-tender, lungs clear, normal breath sounds, no pleuratic chest pain, no respiratory distress, no accessory muscle use - CARDIOVASCULAR Cardiovascular: normal peripheral pulses, regular rate, rhythm, no edema, no gallop, no murmur - GASTROINTESTINAL (ABDOMEN) Abdominal Exam: normal bowel sounds, non tender, soft, no organomegaly, no pulsatile mass. negative: distended, guarding, rigid, rebound, tenderness, hernia, mass - MUSCULOSKELETAL Back Exam: normal inspection Extremity: normal range of motion, non-tender, normal gait, normal inspection - SKIN Integumentary: normal color, warm/dry. negative: cyanosis, diaphoresis, jaundice, mottled, pallor - NEUROLOGIC Neurologic: grossly normal, no motor/sensory deficits - PSYCHIATRIC Psych/Mental Status: normal mood/affect, normal thought content, normal thought process, oriented x 3 Progress - PLAN OF CARE/RESULTS Progress/Plan/Lab Results: Vital Signs - 8 hr 11/10/18 08:56 Temperature 98.1 F Pulse Rate 90 Respiratory Rate 22 Blood Pressure 170/82 O2 Sat by Pulse Oximetry 100 Orders Category Date Time Status Orthostatic Vital Signs NOW Care 11/10/18 09:14 Ordered NPO Diet 11/10/18 09:15 Ordered CHEST-2 VIEWS [RAD] Stat Exams 11/10/18 09:14 Ordered CBC WITH DIFF [HEME] Stat Lab 11/10/18 09:13 Ordered COMPREHENSIVE METABOLIC PANEL [CHEM] Stat Lab 11/10/18 09:13 Uncollected OCCULT BLOOD SCREENING [STOOL] Stat Lab 11/10/18 09:14 Uncollected PROTIME WITH INR [COAG] Stat Lab 11/10/18 09:14 Uncollected PTT [COAG] Stat Lab 11/10/18 09:14 Uncollected UA NIMS W/REFLEX CULT [URINALYSIS] Stat Lab 11/10/18 09:14 Uncollected Ns 500 ml IV Bolus X1 Med 11/10/18 09:14 Ordered 0.9% Sodium Chloride Inj [Ns] 500 ml IV 999 mls/hr Pantoprazole [Protonix] Med 11/10/18 09:15 Once 40 mg IV NOW ONE Sodium Chloride 0.9% Med 11/10/18 09:15 Once 10 ml INJ NOW ONE 1036- On-call GI paged. 1049- Dr. Mata in procedure at this time and states he will call back when procedure complete. [facility] paged. Pt in agreement with admission plan. Result Diagrams: 11/10/18 09:10 11/10/18 09:10 - EKG 1 Time of EKG reading by physician:: 09:52 EKG Read and Signed by:: Royal Whitfield EKG Interpretation (*Must complete 3 of following elements*): Abnormal Rate: 81 Rhythm: NSR- incomplete RBBB ST Wave: normal Prior EKG Comparison: unchanged from prior - XRAY 1 XRAY Study: Chest (IMPRESSION: No acute abnormality. Electronically signed by Juliano Carmichael 11/10/2018 9:37 AM) - CONSULTS/PCP/HOSPITALIST Notification #1 *Consult/PCP/Hospitalist*: SHAKIR Sales SENSITIZER Time Discussed: 10:56 Consult Disposition: Will see in ED, Admit #2 Consult: Dr. Mata and TRACEY Murillo Time Discussed: 11:05 Reason/Comments: GI bleed- on Lovenox Consult Disposition: other (Spoke with both consultants, will hold Lovenox until she is seen by senior billing consultant per request of Dr. Mata.) Departure - Departure Date of Disposition Decision: 11/10/18 Time of Disposition Decision: 10:55 DIAGNOSIS: Hematuria Qualifiers: Hematuria type: unspecified type Qualified Code(s): R31.9 - Hematuria, unspecified GI bleed Qualifiers: GI bleed type/associated pathology: unspecified gastrointestinal hemorrhage type Qualified Code(s): K92.2 - Gastrointestinal hemorrhage, unspecified Disposition: ADMITTED INPATIENT 09 Certified Medical Emergency: Emergent Condition: Stable Referrals and Follow-Ups: None,PCP [Primary Care Provider] - - Critical Care Note This patient required my direct & personal management of CC.: No Attestation - Physician/ [place] Attestation Patient care was provided by Advanced Practice Provider:: Yes Advanced Practice Provider:: Amaris Chung Advanced Practice Provider documentation review:: The Mid-level provider documentation, treatment plan and medical decision making was reviewed by the physician who agrees with all treatment and medical decision making by the MLP. The physician spent face to face time with patient:: No Advanced Practice Provider documentation review:: Supervising physician onsite and consulted in the evaluation and care of this patient. The physician did not have a face to face encounter with the patient.
[2018-11-10] MEDS ORDERED: ROCEPHIN 1 GM in NS 50 ML IV ONE (09:21)
[2018-11-10 09:30] LABS: URINE SOURCE CLEAN CATCH
[2018-11-10 09:32] LABS: BASO# 0.01 X1000 (0.0-0.2); BASO% 0.2 % (0.0-0.8); EOS# 0.07 X1000 (0.0-0.7); EOS% 1.2 % (0.0-10.0); HEMATOCRIT 32.9 % (37.0-47.0); HEMOGLOBIN 9.8 g/dL (12.0-16.0); LYMPH# 1.77 X1000 (1.2-3.4); LYMPH% 30.2 % (20.5-51.1); MCH 23.4 PG (27-31); MCHC 29.8 g/dL (33-37); MCV 78.7 FL (81-99); MONO# 0.63 X1000 (0.11-0.59); MONO% 10.7 % (1.7-9.3); MPV 8.6 FL (7.4-10.4); NEUT# 3.39 X1000 (1.4-6.5); NEUT% 57.7 % (42.2-75.2); PLT 371 X1000 (130-400); RBC 4.18 XMIL (4.2-5.4); RDW 19.8 % (11.5-14.5); WBC 5.87 X1000 (4.8-10.8)
[2018-11-10 09:34] LABS: UR EPITHELIAL CELLS <10 /HPF (<10); URINE BACTERIA 1+ /HPF; URINE RBC TNTC /HPF (<10); URINE WBC <10 /HPF (<10)
[2018-11-10 09:35] LABS: BILIRUBIN URINE NEGATIVE (NEGATIVE); BLOOD URINE LARGE (NEGATIVE); COLOR YELLOW; GLUCOSE URINE NEGATIVE (NEGATIVE); KETONE URINE NEGATIVE (NEGATIVE); LEUKOCYTES URINE NEGATIVE (NEGATIVE); NITRITE URINE NEGATIVE (NEGATIVE); PROTEIN URINE NEGATIVE (NEGATIVE); SP GRAVITY URINE 1.016; TURBIDITY URINE HAZY (CLEAR); UROBILINOGEN URINE NORMAL (NORMAL)
--- NOTE | 2018-11-10 09:39 | Diag Imaging Result Doc PS360 ---
EXAM: CHEST-2 VIEWS HISTORY: hemoptysis TECHNIQUE: Chest two views COMPARISON: 10/03/2018 FINDINGS: The lungs are well expanded. The heart is not enlarged. The vessels are not distended. There are no infiltrates. No pleural effusions. There is a granuloma in the lower left lung. IMPRESSION: No acute abnormality. Electronically signed by Juliano Carmichael 11/10/2018 9:37 AM
--- NOTE | 2018-11-10 09:54 | EKG Report ---
Test Performed on : 11/10/2018 09:49:15 AM Test Reason : sob Blood Pressure : / mmHG Vent. Rate : 081 BPM Atrial Rate : 081 BPM P-R Int : 178 ms QRS Dur : 102 ms QT Int : 418 ms P-R-T Axes : 024 -21 -03 degrees QTc Int : 485 ms Normal sinus rhythm. Incomplete right bundle branch block Anterolateral infarct (cited on or before 05-SEP-2018) Abnormal ECG When compared with ECG of 01-OCT-2018 10:08, (Unconfirmed) Questionable change in initial forces of Lateral leads Unconfirmed Result
[2018-11-10 10:16] LABS: INR 0.93; PROTIME 13.2 Seconds (11.0-16.0)
[2018-11-10 10:17] LABS: PTT 34.3 Seconds (22.3-41.8)
[2018-11-10 10:21] LABS: AGAP 12; ALB/GLOB RATIO 1.2; ALKALINE PHOSPHATASE 128 U/L (32-104); BUN 15 mg/dL (8-22); CALCIUM 8.7 mg/dL (8.8-10.2); CHLORIDE 104 mmol/L (98-107); COSMO 277; CREATININE 0.5 mg/dL (0.5-0.9); ESTIMATED GFR > 60; GLUCOSE 99 mg/dL (70-104); GOT 18 U/L (10-30); GPT 20 U/L (10-36); POTASSIUM 4.3 mmol/L (3.5-5.1); SODIUM 138 mmol/L (136-145); TCO2 22 mmol/L (25-35); TOTAL BILIRUBIN 0.15 mg/dL (0.20-1.00); TOTAL PROTEIN 7.4 g/dL (6.3-8.3)
[2018-11-10] MEDS ORDERED: ZOFRAN IV PRN (12:02)
--- NOTE | 2018-11-10 14:41 | HISTORY AND PHYSICAL ---
CHIEF COMPLAINT: Black stools x3 days, hemoptysis, and hematuria. HISTORY OF PRESENT ILLNESS: This is a 53-year-old female with a history of factor V Leiden, bilateral upper extremity DVT, pulmonary embolus, hypertension, iron deficiency anemia, who presents to the emergency room complaining of black stools and hemoptysis over the last 3 days, and hematuria that started during the day prior to coming to the ER. She has a history of pulmonary embolism and DVT's in upper extremities. She is currently on Lovenox 1 mg/kg with her dose being 120 mg b.i.d. She admits to taking Motrin during the week, which is very likely the cause for this bleeding. She denied any shortness of breath, any chest pain, or any palpitations. PAST MEDICAL HISTORY: 1. DVT bilateral upper extremity. PE secondary to hypercoagulable state. 2. Hypertension. 3. Hepatitis C. 4. Seizure disorder. 5. Recent GI bleed. PAST SURGICAL HISTORY: Cholecystectomy, hysterectomy, left thumb amputation, left eye surgery and hernia repair. ALLERGIES: Sulfa and peanuts. FAMILY HISTORY: Positive for Factor V Leiden mutation deficiencies. SOCIAL HISTORY: She has a 40 pack year history of smoking. She denies alcohol. She has used IV drugs in the past but none recently. REVIEW OF SYSTEMS: As discussed with the patient with pertinent positives stated in the HPI. She denied any syncope, dizziness, any chest pain; any palpitations, any shortness of breath, PND, orthopnea, any nausea, vomiting, diarrhea, constipation, or any bloody stools or vomitus. PHYSICAL EXAMINATION: GENERAL: This is a 53-year-old female who is lying on the stretcher in the emergency room in no distress. VITAL SIGNS: Blood pressure 127/81 with a heart rate of 85, respirations are 20, temperature is 98 degrees oral with room air saturations 98%. HEENT: Head is normocephalic, atraumatic. Mucous membranes are moist. NECK: Supple with trachea midline. CARDIOVASCULAR: Regular rate and rhythm. S1 and S2 appreciated. Calves are nontender bilateral with peripheral pulses palpable x4 extremities. PULMONARY: Breath sounds are clear with no increased work of breathing noted. Chest rises and falls symmetric with respiration. GASTROINTESTINAL: Abdomen is soft, nontender, and nondistended. Bowel sounds in all 4 quadrants. NEUROLOGIC: She is alert and oriented x3. SKIN: Warm and dry. LABORATORY: WBC is 5.8 with hemoglobin 9.8, hematocrit 32.9, and platelets of 371,000. INR 0.93. Sodium 138, potassium 4.3, BUN 15, creatinine 0.5 with a glucose of 99. Urinalysis reveals large amount of blood with too numerous to count red blood cells. Occult blood stools is positive. Chest x-ray reveals no acute abnormality. ASSESSMENT AND PLAN: 1. Hypercoagulable state. We will hold her Lovenox this morning. We will consult Dr. Fanny Pond for further management of her Lovenox. 2. GI bleed. We will monitor stools and any vomitus. We will trend her hemoglobin and transfuse as needed. We will start Carafate and PPI. 3. Hypertension. We will identify home medications and continue. 4. Hepatitis C. Aware. 5. Seizure disorder. Aware. 6. Hemoptysis. Aware. Further treatments pending hospital course. Dictated by VANNESSA Martins for Leydi Prasad MD cc: VANNESSA Martins MD
[2018-11-10] MEDS: ULTRAM PO PRN ×2 (14:48→22:11)
[2018-11-10] MEDS: PROTONIX IV SCH (14:48)
[2018-11-10 14:54] LABS: BASO# 0.02 X1000 (0.0-0.2); BASO% 0.4 % (0.0-0.8); EOS# 0.08 X1000 (0.0-0.7); EOS% 1.6 % (0.0-10.0); HEMATOCRIT 32.8 % (37.0-47.0); HEMOGLOBIN 9.7 g/dL (12.0-16.0); LYMPH# 1.77 X1000 (1.2-3.4); LYMPH% 35.5 % (20.5-51.1); MCH 23.5 PG (27-31); MCHC 29.6 g/dL (33-37); MCV 79.4 FL (81-99); MONO# 0.46 X1000 (0.11-0.59); MONO% 9.2 % (1.7-9.3); MPV 8.3 FL (7.4-10.4); NEUT# 2.66 X1000 (1.4-6.5); NEUT% 53.3 % (42.2-75.2); PLT 326 X1000 (130-400); RBC 4.13 XMIL (4.2-5.4); RDW 19.9 % (11.5-14.5); WBC 4.99 X1000 (4.8-10.8)
--- NOTE | 2018-11-10 15:34 | GASTROENTEROLOGY CONSULTATION ---
DATE: 11/10/2018 REASON FOR CONSULTATION: Hematemesis, anemia. HISTORY OF PRESENT ILLNESS: This is a 53-year-old female. She had onset of black tarry stool, hemoptysis and hematuria. She is on Lovenox for history of DVT and pulmonary embolus. Patient was in the hospital in August and September for GI bleed. She had an EGD on 09/25/2018 that showed erosive gastritis, Shaan lesion and hiatal hernia. At the time of her admission last time her hemoglobin and hematocrit was 6 and 25. Patient had consultation with Dr. Alarcon with [facility] about possible fundoplication due to her hernia causing Shaan lesions. It was felt she was too high risk for surgery. The patient follows with Dr. Fanny Pond for DVT and pulmonary embolism. She continued to have blood clots in September and was transitioned from Xarelto to Lovenox. She has been receiving Lovenox injections 120 mcg twice daily. The patient states she did take some ibuprofen yesterday because of some leg pain she was having. She currently denies chest pain. PAST MEDICAL HISTORY: 1. DVTs, pulmonary embolism. 2. Hypertension. 3. History of seizure disorder. 4. History of hepatitis C never treated. PAST SURGICAL HISTORY: Cholecystectomy, hysterectomy, left thumb amputation, left eye surgery, hernia repair. ALLERGIES: To Sulfa causing blisters to her mouth, hands and legs, peanuts causing itching and sneezing. HOME MEDICATIONS: Albuterol inhaler as needed, carbamazepine 200 mg twice a day, vitamin B 12 5000 mcg daily, Bentyl 20 mg every 6 hours as needed, Lovenox 120 mg subcu q.12 hours, ferrous sulfate 325 mg 3 times a day, Prozac 20 mg daily, Keppra 500 mg 3 times a day, lisinopril/hydrochlorothiazide 20/12.5 mg every day, Claritin 10 mg daily, Prilosec 40 mg twice a day, Carafate 4 times a day. SOCIAL HISTORY: Positive for tobacco use. No reported alcohol use. 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 REVIEW OF SYSTEMS: Per history of present illness. PHYSICAL EXAMINATION: Vital Signs: Temperature 98 degrees, pulse 86, respirations 19, blood pressure 130/74. General: Patient is awake, alert, in no acute distress. Respiratory: Lung sounds essentially clear. HEENT: Normocephalic, atraumatic. Pupils equal, round, reactive to light. Sclerae nonicteric. Respiratory: Lung sounds essentially clear. Cardiovascular: Regular rate and rhythm. Abdomen: Soft, nontender. Positive bowel sounds. Extremities: No lower extremity edema noted. Neurological: Cranial nerves 2-12 grossly intact. Patient is awake, alert, oriented to person, place, and time. LABS: Hematology. WBC 5.87, hemoglobin 9.8, hematocrit 32.9, MCV 78.7, MCH 23.4, platelets 371,000. Coagulation. Pro time 13.2, INR 0.93, PTT 34.3. Chemistry. Sodium 138, potassium 4.3, chloride 104, CO2 of 22, BUN 15, creatinine 0.5, glucose 99, calcium 8.7, total bilirubin 0.15, AST 18, ALT 20, alkaline phosphatase 128. IMAGING: Chest x-ray showed no acute abnormality. ASSESSMENT AND PLAN: 1. Melena. 2. Hemoptysis. 3. Hematuria. 4. History of deep vein thrombosis and pulmonary embolism. 5. Chronic anticoagulation use currently on Lovenox subcu twice daily following with Dr. Fanny Pond. 6. Anemia. Will continue to follow. Follow for any further active bleeding. Continue PPI and Carafate. Would recommend holding today's Lovenox dose, follow with Dr. Fanny Pond for further recommendation on management of anticoagulation. Continue to monitor hemoglobin and hematocrit. Transfuse packed red blood cells as needed. Further plans to be made according to her progress. Patient was also seen by Dr. Pugh. Thank you for this consultation. Dictated by VANNESSA Castillo for Tate Pugh MD cc: VANNESSA Garcia MD
[2018-11-10] MEDS: CARAFATE PO SCH ×3 (15:56→22:12)
[2018-11-10 17:01] LABS: HEMATOCRIT 30.2 % (37.0-47.0); HEMOGLOBIN 8.8 g/dL (12.0-16.0)
[2018-11-11] MEDS: CARAFATE PO SCH ×4 (06:12→20:50)
[2018-11-11 07:54] LABS: HEMATOCRIT 30.2 % (37.0-47.0); HEMOGLOBIN 8.8 g/dL (12.0-16.0); MCH 23.8 PG (27-31); MCHC 29.1 g/dL (33-37); MCV 81.8 FL (81-99); MPV 8.5 FL (7.4-10.4); RBC 3.69 XMIL (4.2-5.4); RDW 20.1 % (11.5-14.5); WBC 3.82 X1000 (4.8-10.8)
[2018-11-11 08:19] LABS: AGAP 11; BUN 9 mg/dL (8-22); CALCIUM 8.5 mg/dL (8.8-10.2); CHLORIDE 103 mmol/L (98-107); COSMO 273; CREATININE 0.6 mg/dL (0.5-0.9); ESTIMATED GFR > 60; GLUCOSE 111 mg/dL (70-104); SODIUM 137 mmol/L (136-145); TCO2 23 mmol/L (25-35)
[2018-11-11] MEDS: ULTRAM PO PRN ×2 (09:14→18:36)
[2018-11-11] MEDS: LOVENOX SUBQ SCH ×2 (10:41→20:50)
[2018-11-11] MEDS: DUONEB (A & A) INH SCH ×3 (10:45→21:00)
--- NOTE | 2018-11-11 11:20 | GASTROENTEROLOGY PROGRESS NOTE ---
DATE: 11/11/2018 SUBJECTIVE: Patient denies complaints. She did have a black stool this morning. Hemoglobin and hematocrit today 8.8 and 30.2. Her Lovenox was held yesterday. She will get her doses today per recommendation of Dr. Pond. OBJECTIVE: Vital Signs: Temperature 97.7 degrees, pulse 74, respirations 120 6/65. General: The patient is awake and alert. No acute distress. LABORATORY: Hematology: WBC 3.82, hemoglobin 8.8, hematocrit 30.2, MCV 81.8, platelets 277,000. Chemistry: Sodium 137, potassium 4.0, chloride 103, CO2 of 23, BUN 9, creatinine 0.6, glucose 111, calcium 8.5, total bilirubin 0.15, AST 18, ALT 20, alkaline phosphatase 128. ASSESSMENT AND PLAN: 1. Hypercoagulable state. Patient has history of deep venous thrombosis and pulmonary embolus. Her Lovenox will be resumed. 2. Gastrointestinal bleed. We will continue to monitor for active bleeding. Monitor hemoglobin and hematocrit. Continue Carafate and proton pump inhibitor. We will continue to follow during her hospital course. Patient does have hiatal hernia with history of Shaan lesions. She was seen by [facility] during her last hospitalization, and it was recommended not to proceed with repair of her hiatal hernia due to high-risk. There has been discussion about sending her to referral for tertiary center for possible surgery. I will discuss this case with Dr. Pugh. Further plans will be made as needed. Dictated by VANNESSA Castillo for Tate Pugh MD cc: VANNESSA Garcia MD
[2018-11-11] MEDS: PROTONIX IV SCH (12:30)
--- NOTE | 2018-11-11 13:56 | PROGRESS NOTE ---
DATE: 11/11/2018 SUBJECTIVE: The patient is resting comfortably. She complains of some mild wheezing. OBJECTIVE: Vital signs: Temperature 98.7 degrees, blood pressure 135/72, heart rate 82, respirations 20, O2 saturation 98% on room air. General: This is a morbidly obese female lying in bed in no acute distress. Heart: S1, S2 normal. Regular rate and rhythm. Lungs: Equal air entry bilaterally. No crackles. No rales. Abdomen: Positive bowel sounds. Soft, nontender, nondistended. Extremities: No edema, no cyanosis. Neurologic: The patient is alert and oriented x4. LABS: Hemoglobin 8.8, hematocrit 30, platelets 277, sodium 137, glucose 111. ASSESSMENT AND PLAN: 1. Gastrointestinal bleed. The patient continues to complain of melena. Continue on Protonix intravenous. Gastroenterology is following. 2. Hypercoagulable state. The patient has a history of upper and lower extremity deep vein thrombosis and more recently a pulmonary embolism. Will continue on full-dose Lovenox. Hematology has been consulted. 3. Hepatitis C. Aware. 4. Seizure disorder. Will continue on Keppra. 5. Depression. Continue on Prozac. 6. Chronic obstructive pulmonary disease. Stable. cc: Leydi Prasad MD
[2018-11-11] MEDS: TEGRETOL PO SCH ×2 (14:10→20:50)
[2018-11-11] MEDS: KEPPRA PO SCH ×2 (14:10→20:50)
[2018-11-12 07:12] LABS: HEMATOCRIT 30.3 % (37.0-47.0); HEMOGLOBIN 8.8 g/dL (12.0-16.0); MCH 23.8 PG (27-31); MCV 81.9 FL (81-99); MPV 8.6 FL (7.4-10.4); RBC 3.7 XMIL (4.2-5.4); RDW 20.1 % (11.5-14.5); WBC 3.79 X1000 (4.8-10.8)
[2018-11-12 07:34] LABS: AGAP 11; BUN 9 mg/dL (8-22); CALCIUM 8.8 mg/dL (8.8-10.2); CHLORIDE 103 mmol/L (98-107); COSMO 277; CREATININE 0.6 mg/dL (0.5-0.9); ESTIMATED GFR > 60; GLUCOSE 109 mg/dL (70-104); POTASSIUM 4.1 mmol/L (3.5-5.1); SODIUM 139 mmol/L (136-145); TCO2 25 mmol/L (25-35)
[2018-11-12] MEDS: ULTRAM PO PRN ×2 (09:30→20:31)
[2018-11-12] MEDS: TEGRETOL PO SCH ×2 (09:30→20:31)
[2018-11-12] MEDS: LOVENOX SUBQ SCH ×2 (09:30→20:31)
[2018-11-12] MEDS: PROZAC PO SCH (09:30)
[2018-11-12] MEDS: CARAFATE PO SCH ×4 (09:30→20:31)
[2018-11-12] MEDS: KEPPRA PO SCH ×3 (09:30→20:31)
[2018-11-12] MEDS: DUONEB (A & A) INH SCH ×3 (10:18→21:00)
--- NOTE | 2018-11-12 14:37 | PROGRESS NOTE ---
DATE: 11/12/2018 SUBJECTIVE: The patient is resting comfortably in bed. No acute events noted overnight. OBJECTIVE: Vital Signs: Temperature 97 degrees, blood pressure 113/68, heart rate 99, respirations 16, O2 saturation 95% on room air. General: This is a morbidly obese female lying in bed in no acute distress. Heart: S1, S2 normal. Regular rate and rhythm. Lungs: Clear to auscultation bilaterally. No wheezing. No rales. No rhonchi. Abdomen: Positive bowel sounds. Soft, obese, nontender, nondistended. Extremities: No edema. No cyanosis. Neurologic: The patient is alert and oriented x4. LABORATORY DATA: Hemoglobin 8.8, hematocrit 30, platelets 276,000. Sodium 139, potassium 4.1, chloride 103, CO2 of 25, BUN 9, creatinine 0.6, glucose 109. ASSESSMENT AND PLAN: 1. Gastrointestinal bleed. Stable. The patient's hemoglobin and hematocrit remain stable. Continue on Protonix. Gastroenterology is following. 2. Hypercoagulable state. Continue on full-dose Lovenox. 3. Hepatitis C. Aware. 4. Seizure disorder. Continue on Keppra. 5. Depression. Continue on Prozac. 6. Chronic obstructive pulmonary disease. Stable. 7. Morbid obesity. The patient has been counseled about weight loss and proper diet. cc: Leydi Prasad MD
--- NOTE | 2018-11-12 15:08 | GASTROENTEROLOGY PROGRESS NOTE ---
DATE: 11/12/2018 SUBJECTIVE: The patient was resting comfortably. Although she has not had any bright red blood per rectum, she still has she says some dark stool. She continues to be on Lovenox for her PE and deep vein thrombosis. She denies any other GI symptoms. DIAGNOSTIC STUDIES: Today her hemoglobin and hematocrit remain stable, the same numbers since yesterday. Her BUN is 9 and creatinine 0.6. OBJECTIVE: Abdomen is obese, soft, nontender. Bowel sounds audible. IMPRESSION: Gastrointestinal bleed, most likely from her Shaan lesion which was visualized during her last hospitalization and endoscopy. Unfortunately, she had taken some NSAID along with her Lovenox which she has to take for her DVT and PE. At this point, we are contemplating referring or transferring to [facility] for possible Stewart fundoplication to correct her hiatal hernia. That would resolve her problem of Shaan lesion which tends to be bleeding. In the meantime, encouraged her to avoid any NSAID. We have to continue her Lovenox because of her history of PE and DVT. Continue PPI and Carafate and will follow. cc: Tate Pugh MD
[2018-11-12] MEDS: PROTONIX IV SCH (16:09)
[2018-11-13] MEDS: ULTRAM PO PRN ×4 (02:15→22:53)
[2018-11-13 08:06] LABS: HEMATOCRIT 29.1 % (37.0-47.0); HEMOGLOBIN 8.4 g/dL (12.0-16.0); MCH 23.4 PG (27-31); MCHC 28.9 g/dL (33-37); MCV 81.1 FL (81-99); MPV 8.4 FL (7.4-10.4); RBC 3.59 XMIL (4.2-5.4); RDW 19.8 % (11.5-14.5); WBC 2.98 X1000 (4.8-10.8)
[2018-11-13 08:13] LABS: AGAP 10; BUN 11 mg/dL (8-22); CALCIUM 8.6 mg/dL (8.8-10.2); CHLORIDE 100 mmol/L (98-107); COSMO 270; CREATININE 0.6 mg/dL (0.5-0.9); ESTIMATED GFR > 60; GLUCOSE 107 mg/dL (70-104); POTASSIUM 4.2 mmol/L (3.5-5.1); SODIUM 135 mmol/L (136-145); TCO2 25 mmol/L (25-35)
[2018-11-13] MEDS: LOVENOX SUBQ SCH ×2 (09:07→22:07)
[2018-11-13] MEDS: CARAFATE PO SCH ×4 (09:07→22:07)
[2018-11-13] MEDS: PROZAC PO SCH (09:07)
[2018-11-13] MEDS: TEGRETOL PO SCH ×2 (09:07→22:07)
[2018-11-13] MEDS: KEPPRA PO SCH ×3 (09:07→22:07)
[2018-11-13] MEDS: DUONEB (A & A) INH SCH ×3 (09:36→22:12)
[2018-11-13] MEDS: PROTONIX IV SCH (14:47)
--- NOTE | 2018-11-13 22:06 | PROGRESS NOTE ---
DATE: 11/13/2018 SUBJECTIVE: The patient is resting in bed. She complains of generalized aches and pains. She states that she is still having dark, tarry stools. OBJECTIVE: Vital Signs: Temperature 98.4, blood pressure 123/63, heart rate 87, respirations 18, O2 saturation 96% on room air. General: This is a morbidly obese female sitting up in bed in no acute distress. Heart: S1, S2 normal. Regular rate and rhythm. Lungs: Clear to auscultation bilaterally. No wheezing. No rales. No rhonchi. Abdomen: Positive bowel sounds. Soft, nontender, nondistended. Extremities: No edema. No cyanosis. Neurologic: The patient is alert and oriented x3. LABORATORY DATA: White blood cell count 2.9, hemoglobin 8.4, hematocrit 29, platelets 277,000. Sodium 135, potassium 4.2, chloride 100, CO2 25, BUN 11, creatinine 0.6, glucose 107. ASSESSMENT AND PLAN: 1. Gastrointestinal bleed secondary to Shaan lesion. Continue on intravenous Protonix. Further recommendations to follow from Gastroenterology. 2. Hypercoagulable state. Continue on full dose Lovenox. 3. Seizure disorder. Continue on Keppra and Tegretol. 4. Chronic obstructive pulmonary disease. Continue with bronchodilator therapy. 5. Chronic pain. Continue on Ultram. 6. Depression. Continue on Prozac. cc: Leydi Prasad MD
[2018-11-13] MEDS: BENADRYL PO PRN (22:53)
[2018-11-14] MEDS: BENADRYL PO PRN ×3 (07:30→21:27)
[2018-11-14 07:34] LABS: HEMATOCRIT 30.4 % (37.0-47.0); HEMOGLOBIN 8.8 g/dL (12.0-16.0); MCH 23.7 PG (27-31); MCHC 28.9 g/dL (33-37); MCV 81.7 FL (81-99); RBC 3.72 XMIL (4.2-5.4); RDW 20.1 % (11.5-14.5); WBC 3.06 X1000 (4.8-10.8)
[2018-11-14 07:45] LABS: AGAP 10; BUN 13 mg/dL (8-22); CALCIUM 8.9 mg/dL (8.8-10.2); CHLORIDE 100 mmol/L (98-107); COSMO 271; CREATININE 0.6 mg/dL (0.5-0.9); ESTIMATED GFR > 60; GLUCOSE 120 mg/dL (70-104); POTASSIUM 4.3 mmol/L (3.5-5.1); SODIUM 135 mmol/L (136-145); TCO2 25 mmol/L (25-35)
[2018-11-14] MEDS: KEPPRA PO SCH ×3 (09:39→21:28)
[2018-11-14] MEDS: CARAFATE PO SCH ×4 (09:39→21:27)
[2018-11-14] MEDS: PROZAC PO SCH (09:39)
[2018-11-14] MEDS: ULTRAM PO PRN ×3 (09:39→21:28)
[2018-11-14] MEDS: TEGRETOL PO SCH ×2 (09:39→21:28)
[2018-11-14] MEDS: LOVENOX SUBQ SCH ×2 (09:40→21:27)
[2018-11-14] MEDS: DUONEB (A & A) INH SCH ×3 (10:09→23:03)
[2018-11-14] MEDS: PROTONIX IV SCH (14:50)
--- NOTE | 2018-11-14 19:37 | PROGRESS NOTE ---
DATE: 11/14/2018 SUBJECTIVE: Ms. Abdalla was admitted on 11/10/2018. She has no primary care physician. She came in with black stools x3 days, hemoptysis, and hematuria. This is a 53-year-old female with a history of Factor V Leiden deficiency, bilateral upper extremity DVTs, pulmonary emboli, hypertension, iron-deficiency anemia who presented to the emergency room with the complaint of black stools and hemoptysis over the last 3 days and hematuria that started the day prior to coming into the emergency room. She has a history of pulmonary embolism and DVTs in the upper extremities. Currently on Lovenox 1 mg/kg, her dose being 120 mg twice a day. She admits to taking Motrin during the week, which very likely could be the case of bleeding. PAST MEDICAL HISTORY: 1. DVT, upper extremity PE secondary to hypercoagulable state, Factor V Leiden deficiency. 2. Hypertension. 3. Hepatitis C. 4. Seizure disorder. 5. Recent GI bleed. PAST SURGICAL HISTORY: 1. Cholecystectomy. 2. Hysterectomy. 3. Left thumb amputation. 4. Left eye surgery. 5. Hernia repair. ALLERGIES: She is allergic to sulfa and peanuts. REASON FOR ADMISSION: 1. She is admitted with hypercoagulable state on Lovenox, Factor V Leiden deficiency and having some bleeding. 2. GI bleed. 3. Hematuria. So we put her on Carafate and proton pump inhibitors. 4. She has a history of hepatitis C. Aware. 5. History of seizure disorder. 6. Recent hemoptysis. PHYSICAL EXAMINATION: General: Today, she is feeling better. No pain. Vital Signs: Temperature 99.1, pulse 106, respirations 117, blood pressure 120/67. HEENT: Pupils are equal and round. Lungs: Clear in all lung bal. Cardiovascular: Regular rhythm and rate without murmur or S3. Abdomen: Soft. Skin: Warm and dry. LABORATORY DATA: Hematocrit is stable at 30, hemoglobin 8.8. CONSULTANTS: GI was consulted for melena, hemoptysis. PLAN: 1. Continue to follow her blood counts. She is on a PPI and Carafate. They held Lovenox dose followed by Dr. Fanny Pond for the management on anticoagulation. Continue to monitor her hemoglobin, hematocrit and transfuse as needed. 2. Hematuria. 3. History of deep vein thrombosis, pulmonary embolism. 4. Factor Leiden deficiency, coagulopathy, and then there is a history of depression. REVIEW OF HER ORDERS: 1. She is getting carbamazepine 200 mg b.i.d. I think this is for her history of seizures. 2. She is back on her Lovenox 120 mg subcutaneous q.12 for Factor Leiden deficiency. 3. She is on Prozac 20 mg a day. 4. Keppra 500 mg which she is taking 3 times a day. 5. Protonix 40 mg IV q.24 hours. I think we can change that to p.o. 6. She is on Carafate 1 g 4 times a day. 7. She gets tramadol 50 mg q.6 hours p.r.n. 8. We will check another CBC tomorrow. NOTE: The gastrointestinal bleeding likely from Shaan's lesion, which was visualized during the last hospitalization with endoscopy, she has taken some NSAID's and this may have been what caused the bleeding. Contemplating referring to [facility] for possible Stewart fundoplication to correct her hiatal hernia, resolve her problem with Shaan's lesion. In the meantime, encouraged her to avoid NSAIDs and continue PPIs and Carafate. cc: Nader Gill MD
[2018-11-15 07:15] LABS: BASO# 0.01 X1000 (0.0-0.2); BASO% 0.3 % (0.0-0.8); EOS# 0.09 X1000 (0.0-0.7); EOS% 2.8 % (0.0-10.0); HEMATOCRIT 32.7 % (37.0-47.0); HEMOGLOBIN 9.6 g/dL (12.0-16.0); LYMPH# 0.87 X1000 (1.2-3.4); LYMPH% 27.4 % (20.5-51.1); MCH 23.4 PG (27-31); MCHC 29.4 g/dL (33-37); MCV 79.6 FL (81-99); MONO# 0.38 X1000 (0.11-0.59); MPV 8.7 FL (7.4-10.4); NEUT# 1.82 X1000 (1.4-6.5); NEUT% 57.5 % (42.2-75.2); PLT 298 X1000 (130-400); RBC 4.11 XMIL (4.2-5.4); RDW 19.5 % (11.5-14.5); WBC 3.17 X1000 (4.8-10.8)
[2018-11-15 07:36] LABS: AGAP 8; BUN 12 mg/dL (8-22); CALCIUM 8.9 mg/dL (8.8-10.2); CHLORIDE 100 mmol/L (98-107); COSMO 273; CREATININE 0.6 mg/dL (0.5-0.9); ESTIMATED GFR > 60; GLUCOSE 115 mg/dL (70-104); SODIUM 136 mmol/L (136-145); TCO2 28 mmol/L (25-35)
[2018-11-15] MEDS: BENADRYL PO PRN (09:34)
[2018-11-15] MEDS: ULTRAM PO PRN (09:34)
[2018-11-15] MEDS: CARAFATE PO SCH ×2 (09:36→13:37)
[2018-11-15] MEDS: LOVENOX SUBQ SCH (09:36)
[2018-11-15] MEDS: TEGRETOL PO SCH (09:36)
[2018-11-15] MEDS: PROZAC PO SCH (09:36)
[2018-11-15] MEDS: KEPPRA PO SCH (09:37)
[2018-11-15] MEDS: DUONEB (A & A) INH SCH (10:32)
[2018-11-15 11:17] VITALS: BP 132/67
[2018-11-15] MEDS: PROTONIX IV SCH (13:37)
--- NOTE | 2018-11-15 14:05 | DISCHARGE SUMMARY ---
ADMISSION DATE: 11/10/2018 DISCHARGE DATE: INDICATION: This is a 53-year-old. She has no primary care physician. HISTORY: History of Factor V Leiden deficiency, bilateral upper extremity DVTs, pulmonary emboli, hypertension, iron deficiency anemia, presented to the emergency room with black stools. History of black stools, hemoptysis for the last 3 days. Some hematuria as well. History of pulmonary embolism and DVTs in upper extremities. She is currently on Lovenox 1 mg/kg and dosing 120 mg b.i.d. Admits to taking Motrin during the week and likely this is the cause for bleeding. PAST MEDICAL HISTORY: 1. DVT, bilateral upper extremity PE secondary to hypercoagulable state, factor Leiden deficiency. 2. Hypertension. 3. Hepatitis C. 4. Seizure disorder. 5. Recent GI bleed. PAST SURGICAL HISTORY: 1. Status post cholecystectomy. 2. Status post hysterectomy. 3. Status post left thumb amputation. 4. Status post left eye surgery. 5. Status post hernia repair. ALLERGIES: She is allergic to sulfa and peanuts. ADMISSION DIAGNOSES: 1. Hypercoagulable state, factor Leiden deficiency. She is on Lovenox. Presented with a bleed and most likely this is Shaan's lesion. She was followed by GI. The bleeding seemed to resolve. We have her on Protonix. We will continue Protonix high dose 40 mg twice a day. 2. She also has a history of hepatitis C. 3. History of seizure disorder. HOSPITAL COURSE: So, the bleeding seemed to resolve. Instructed her not to take nonsteroidal anti-inflammatories. Hematocrit was 32, hemoglobin 9.6. Chemistries unremarkable. Sodium 136, potassium 4.0, chloride 100 BUN 12, creatinine 0.6. She is recommended that she get a workup and see about a Setwart fundoplication or surgery at [facility] as an outpatient. DISCHARGE MEDICATIONS: She will be on Tegretol 200 mg b.i.d., continue Lovenox 120 mg subcu q.12, she has this at home, Prozac 20 mg a day, Keppra 500 mg 3 times a day, Protonix. We will have her on 40 mg p.o. around once a day and Carafate 1 g 4 times a day. She gets Ultram 50 mg q.6 hours p.r.n. pain. FOLLOWUP: She will follow up with Dr. Pond. Recommend outpatient evaluation for her Shaan's lesion and bleeding from her stomach and severe hiatal hernia. cc: Nader Gill MD
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
== END 2018-11-15 16:00 | disposition home or self-care (01) | DRG 378 ==
LOC: ED 08:49 → SUATTDRO 12:30 → 3N 12:30
PROVIDERS: ATTEND Emergency Medicine
CPT/HCPCS: 71020; 71046; 80048; 80053; 81001; 82270; 84484; 85014; 85018; 85025; 85027; 85610; 85730; 93005; 94640; 94760; 94761; 96365; 96375; 99285; A9270; C9113; J0696; J1650; J7040; S0164

== ENCOUNTER 2019-01-18 13:51 | Inpatient (IN) ==
--- NOTE | 2019-01-18 14:12 | EKG Report ---
Test Performed on : 01/18/2019 1:58:40 PM Test Reason : CP Blood Pressure : / mmHG Vent. Rate : 097 BPM Atrial Rate : 097 BPM P-R Int : 164 ms QRS Dur : 134 ms QT Int : 390 ms P-R-T Axes : 053 -31 009 degrees QTc Int : 495 ms Normal sinus rhythm. Left axis deviation Right bundle branch block Possible Lateral infarct (cited on or before 05-SEP-2018) Abnormal ECG When compared with ECG of 10-NOV-2018 09:49, Right bundle branch block has replaced Incomplete right bundle branch block Questionable change in initial forces of Lateral leads Unconfirmed Result
--- NOTE | 2019-01-18 14:24 | PROVIDER DOCUMENTATION ---
HPI-General Adult - General Chief Complaint: Dizziness Stated Complaint: CP,DIZZINESS Time Seen by Provider: 01/18/19 13:59 Source: patient Allergies/Adverse Reactions: Patient Allergies Allergy/AdvReac Type Severity Reaction Status Date / Time Sulfa (Sulfonamide Allergy Severe BLISTERS Verified 09/23/18 15:54 Antibiotics) TO MOUTH, HANDS, LEGS peanut Allergy Mild ITCHING Verified 09/23/18 15:54 AND SNEEZING Home Medications: Home Medication List Medication Instructions Recorded Confirmed Last Taken Type Albuterol 2.5MG/Ipratrop 0.5MG 3 ml INH Q4H PRN PRN #30 neb 06/23/18 01/18/19 1 Day Ago Rx [Duoneb (A & A)] ~09/22/18 Levetiracetam [Keppra] 500 mg PO TID #90 tab 06/23/18 01/18/19 01/18/19 Rx Fluoxetine HCl [Prozac] 20 mg PO DAILY 30 Days #30 cap 08/11/18 01/18/19 01/18/19 Rx Lisinopril/Hydrochlorothiazide 1 ea PO QAM 09/23/18 01/18/19 01/18/19 History [Lisinopril-Hctz 20-12.5 mg Tab] Enoxaparin [Lovenox] 120 mg SUBQ Q12H syringe 10/04/18 01/18/19 Unknown Rx Carbamazepine [Tegretol] 200 mg PO BID 01/18/19 01/18/19 Unknown History Omeprazole [Prilosec] 20 mg PO BID@0700,2100 01/18/19 01/18/19 01/18/19 History - History of Present Illness -Gen Adult Nature of Presenting Problems: Pt. is 53 yof that presents with c/o CP, dizziness and SOB. Pt. reports she takes lovenox for a clotting disorder. She states the last three days she has noticed her stool is black. When asked where her pain is she points to the epigastric area and states it radiates around her right upper flank. She does note have a GB. Pt. denies any other complaint. Location of Pain/Injury: reports: chest. denies: none, head, face, mouth, neck, upper extremity, hand(s), abdomen, back, pelvis, genitalia, lower extremity, feet, upper body, lower body, generalized, other Pain Radiation: reports: epigastric, RUQ. denies: no radiation, arm(s), back, buttocks, chest, feet, groin, jaw, flank (L), legs (lower), LLQ, LUQ, neck, periumbilical, flank (R), RLQ, shoulder(s), scapula, scrotal, sternal notch, suprapubic, legs (upper), urethral, vaginal, other Quality of Pain: reports: aching. denies: burning, pressure, sharp, tightness Severity: reports: mild. denies: moderate, severe Onset/Duration: reports: gradual, 3 days ago Timing: reports: still present. denies: improving, intermittent, getting worse Context/Activities at Onset: reports: none. denies: light activity, moderate activity, vigorous activity, recent emotional stress, recent physical stress, recent trauma history, possible bad food, cold exposure, eating, out of country travel, rest, sleep, sexual activity, other Modifying Factors: improves with: nothing Associated Symptoms: reports: chest pain, shortness of breath. denies: denies symptoms, anxiety, arm pain, back/neck pain, constipation, cough, diaphoresis, diarrhea, dizziness, EENT symptoms, fatigue, fever/chills, genitourinary problems, headaches, heartburn, joint pain, loss of appetite, malaise, muscle aches, sinus congestion/drainage, nausea, rash, seizure, sensory/motor loss, pain with inspiration, swelling/mass in abdomen, syncope, vomiting, weakness, trouble walking, other Similar Symptoms Previously?: Yes Recently seen or treated by another doctor?: No Review of Systems - Adult - REVIEW OF SYSTEMS - ADULT Constitutional: reports: no symptoms reported Eyes: reports: no symptoms reported Ears, Nose, Mouth & Throat: reports: no symptoms reported Cardiovascular: reports: see HPI, chest pain. denies: irregular heart rate, palpitations, syncope Respiratory: reports: see HPI, dyspnea on exertion, shortness of breath. denies: cough, hemoptysis, wheezing Gastrointestinal: reports: see HPI, rectal bleeding. denies: hematemesis, diarrhea, nausea Genitourinary: reports: no symptoms reported Musculoskeletal: reports: no symptoms reported Integumentary: reports: no symptoms reported Neurological: reports: see HPI, dizziness/vertigo. denies: loss of balance, seizure, tremors Psychiatric: reports: no symptoms reported Past History - Adult - PAST MEDICAL HISTORY-ADULT Review of Records: reports: Old Records Reviewed, Nursing Assessment Review, Medications Reviewed, Social history reviewed & non-contributory. Major Childhood Illnesses: reports: denies history Cardiovascular: reports: blood clots, CHF, HTN Respiratory: reports: denies history Gastrointestinal: reports: GERD, GI bleed, hepatitis (c) Obstetrical/Gynecological: reports: denies history Genitourinary: reports: kidney disease Musculoskeletal: reports: denies history Neurological: reports: Seizures/Epilepsy, TIA Psychiatric: reports: denies history Endocrine/Immune: reports: denies history Other Conditions: reports: denies history - PRIOR SURGERIES/PROCEDURES Surgical/Procedure History: reports: hysterectomy, other, cholecystectomy - PRIOR HOSPITALIZATIONS Prior Hospitalizations: reports: for other non-related - IMMUNIZATION STATUS Childhood Immunizations: See Nurse Assessment Flu Vaccine: See Nurse Assessment - FAMILY HISTORY Family History: reviewed, not pertinent - SOCIAL HISTORY Smoking: denies Physical Exam-General - PHYSICAL EXAM-ADULT Initial Vital Signs Reviewed: Yes - CONSTITUTIONAL General Appearance: alert, mild distress, obese. negative: anxious, slow to respond, obtunded, combative - EYES Eyes: PERRL/EOMI, pink conjunctivae - HEAD, EARS, NOSE, MOUTH & THROAT HENMT: normocephalic/atraumatic, moist mucous membranes - NECK Neck: non-tender, full range of motion, supple, normal inspection - RESPIRATORY Respiratory: lungs clear, normal breath sounds - CARDIOVASCULAR Cardiovascular: normal peripheral pulses, regular rate, rhythm, no edema - GASTROINTESTINAL (ABDOMEN) Abdominal Exam: non tender, soft, abnormal bowel sounds (hypoactive). negative: rigid, rebound, tenderness - GENITOURINARY Female Genitalia/Pelvic Exam: deferred Rectal Exam: normal exam, normal rectal tone, tenderness. negative: black stool, decreased tone, hemorrhoids Hemoccult Exam: heme positive stool - LYMPHATIC Lymphatic: no adenopathy - MUSCULOSKELETAL Back Exam: normal inspection, no CVA tenderness, no vertebral tenderness Extremity: normal range of motion, non-tender, normal gait, normal inspection. negative: erythema, inflammation, swelling, tenderness Peripheral Pulses: radial (R): 2+, radial (L): 2+ - SKIN Integumentary: normal color, normal turgor, warm/dry. negative: cyanosis, erythema, pallor, warm - NEUROLOGIC Neurologic: grossly normal, no motor/sensory deficits - PSYCHIATRIC Psych/Mental Status: normal mood/affect, normal thought content, normal thought process, oriented x 3, anxious, tearful. negative: disoriented x 3, disheveled, depressed affect, paranoid Progress - PLAN OF CARE/RESULTS Progress/Plan/Lab Results: Vital Signs - 8 hr 01/18/19 13:52 Temperature 98.2 F Pulse Rate 103 H Respiratory Rate 18 Blood Pressure 166/110 O2 Sat by Pulse Oximetry 97 Orders Category Date Time Status Saline Loc NOW Care 01/18/19 14:06 Active CHEST-PORTABLE [RAD] Stat Exams 01/18/19 14:08 Ordered CBC WITH ELECTRONIC DIFF [HEME] Stat Lab 01/18/19 14:07 Uncollected CK PROFILE [SP CHEM] Stat Lab 01/18/19 14:07 Uncollected COMPREHENSIVE METABOLIC PANEL [CHEM] Stat Lab 01/18/19 14:07 Uncollected LIPASE [CHEM] Stat Lab 01/18/19 14:07 Uncollected OCCULT BLOOD SCREENING [STOOL] Stat Lab 01/18/19 14:08 Uncollected PRO B-NATRIURETIC PEPTIDE Stat Lab 01/18/19 14:07 Ordered PROTIME WITH INR [COAG] Stat Lab 01/18/19 14:07 Uncollected PTT [COAG] Stat Lab 01/18/19 14:07 Uncollected TROPONIN T Stat Lab 01/18/19 14:07 Uncollected URINALYSIS W/POSS RFLX CULT [URINALYSIS] Stat Lab 01/18/19 14:07 Uncollected EKG [EKG] Stat Ther 01/18/19 14:07 Draft Laboratory Tests 01/18/19 01/18/19 01/18/19 14:52 14:52 14:52 WBC 6.16 RBC 4.53 Hgb 12.8 Hct 40.0 MCV 88.3 MCH 28.3 MCHC 32.0 L RDW Std Deviation 22.5 H Plt Count 258 MPV 9.7 Immature Gran % (Auto) 1.0 H Neut % (Auto) 53.4 Lymph % (Auto) 30.4 Emery % (Auto) 11.5 H Eos % (Auto) 3.2 Baso % (Auto) 0.5 Immature Gran # (Auto) 0.06 H Neut # (Auto) 3.29 Lymph # (Auto) 1.87 Emery # (Auto) 0.71 H Eos # (Auto) 0.20 Baso # (Auto) 0.03 PT INR PTT (Actin FS) Sodium 139 Potassium 4.0 Chloride 105 Carbon Dioxide 23 L Anion Gap 11 BUN 11 Creatinine 0.5 Estimated GFR/1.73 m2 > 60 BUN/Creatinine Ratio 22 Glucose 145 H POC Glucose Calculated Osmolality 280 Calcium 8.3 L Total Bilirubin < 0.15 L AST 30 ALT 27 Alkaline Phosphatase 128 H Creatine Kinase 77 Troponin T [id number]-Qtdibbhypvc Pept 51 Total Protein 7.3 Albumin 3.7 Globulin 3.6 Albumin/Globulin Ratio 1.0 Lipase 27 Urine Source Urine Color Urine Turbidity Urine pH Ur Specific Rindge Urine Protein Ur Glucose (Stick) Ur Ketones (Stick) Urine Blood Urine Nitrite Urine Bilirubin Urobilinogen Dipstick Urine Leukocytes Urine WBC (Auto) Urine RBC (Auto) U Epithel Cells (Auto) Urine Bacteria (Auto) 01/18/19 01/18/19 01/18/19 14:52 14:52 15:09 WBC RBC Hgb Hct MCV MCH MCHC RDW Std Deviation Plt Count MPV Immature Gran % (Auto) Neut % (Auto) Lymph % (Auto) Emery % (Auto) Eos % (Auto) Baso % (Auto) Immature Gran # (Auto) Neut # (Auto) Lymph # (Auto) Emery # (Auto) Eos # (Auto) Baso # (Auto) PT 13.1 INR 0.98 PTT (Actin FS) 28.5 Sodium Potassium Chloride Carbon Dioxide Anion Gap BUN Creatinine Estimated GFR/1.73 m2 BUN/Creatinine Ratio Glucose POC Glucose 137 H Calculated Osmolality Calcium Total Bilirubin AST ALT Alkaline Phosphatase Creatine Kinase Troponin T < 0.010 Bpi-Q-Rbdwscjogxe Pept Total Protein Albumin Globulin Albumin/Globulin Ratio Lipase Urine Source Urine Color Urine Turbidity Urine pH Ur Specific Rindge Urine Protein Ur Glucose (Stick) Ur Ketones (Stick) Urine Blood Urine Nitrite Urine Bilirubin Urobilinogen Dipstick Urine Leukocytes Urine WBC (Auto) Urine RBC (Auto) U Epithel Cells (Auto) Urine Bacteria (Auto) 01/18/19 16:05 WBC RBC Hgb Hct MCV MCH MCHC RDW Std Deviation Plt Count MPV Immature Gran % (Auto) Neut % (Auto) Lymph % (Auto) Emery % (Auto) Eos % (Auto) Baso % (Auto) Immature Gran # (Auto) Neut # (Auto) Lymph # (Auto) Emery # (Auto) Eos # (Auto) Baso # (Auto) PT INR PTT (Actin FS) Sodium Potassium Chloride Carbon Dioxide Anion Gap BUN Creatinine Estimated GFR/1.73 m2 BUN/Creatinine Ratio Glucose POC Glucose Calculated Osmolality Calcium Total Bilirubin AST ALT Alkaline Phosphatase Creatine Kinase Troponin T Bms-V-Uixkkrljojg Pept Total Protein Albumin Globulin Albumin/Globulin Ratio Lipase Urine Source CLEAN CATCH Urine Color YELLOW Urine Turbidity HAZY Urine pH 5.5 Ur Specific Rindge 1.038 Urine Protein 30 A Ur Glucose (Stick) NEGATIVE Ur Ketones (Stick) NEGATIVE Urine Blood LARGE A Urine Nitrite NEGATIVE Urine Bilirubin NEGATIVE Urobilinogen Dipstick 3 A Urine Leukocytes NEGATIVE Urine WBC (Auto) <10 Urine RBC (Auto) TNTC A U Epithel Cells (Auto) >10 A Urine Bacteria (Auto) NEGATIVE Heart score = 3 Discussed results and plan of care with patient. Patient agrees with plan and verbalizes understanding. Result Diagrams: 01/18/19 14:52 01/18/19 14:52 - XRAY 1 XRAY Study: Chest [facility] - [address] [place] [address] [place] [address] [place] [address] - [address] [place] [address] Department of Imaging Patient: MARI KEYS Date: 01/18/19#: [id number] : 1965ADM Status: PRE ERAcct#: [id number] Age/Sex: 53/FRoom/Bed: Loc: ED Ordering Physician: Tonya Doe Family Physician: None,PCP Reason for Procedure: SOB ___ Signed CHEST-PORTABLE - 01/18/2019 INDICATION: SOB COMPARISON: 11/10/2018 FINDINGS: The lungs are clear. Heart size is normal. No pneumothorax or pleural effusion. Stable benign calcified granulomas in the left lung base and left hilum. IMPRESSION: Negative exam. Electronically signed by Joe Summers 01/18/2019 2:21 PM 01/18/19 1421 Interpreting Physician: Joe Summers MD Dictated Date/Time: 01/18/19 1420 cc: Tonya Doe; None,PCP) XRAY Interpretation: See note - CT/MRI 1 CT Study: Thorax ([facility] - [address] , [address], [place] [address] [facility] - [address] [place] [address] Department of Imaging Patient: MARI KEYS Date: 01/18/19MR#: [id number] : 1965ADM Status: [facility] ERAcct#: [id number] Age/Sex: 53/FRoom/Bed: Loc: ED Ordering Physician: Tonya Doe Family Physician: None,PCP Reason for Procedure: CP with SOB Signed CT ANGIOGRM PULMONARY ARTERIES - 01/18/2019 INDICATION: CP with SOB TECHNIQUE: Axial CT images were obtained after administering intravenous contrast. Coronal MIP images were generated. COMPARISON: 10/01/2018 FINDINGS: There is suboptimal opacification of the pulmonary arteries. No obvious pulmonary embolism. Heart and great vessels are normal. There are some stable prominent axillary lymph nodes bilaterally. Stable large hiatal hernia. Upper abdominal images are otherwise normal. Stable granuloma in the lingula. There is scattered linear atelectasis in the lung bases. No infiltrates. There are moderate degenerative changes of the spine. No acute or suspicious bony lesion. IMPRESSION: Suboptimal opacification of the pulmonary arteries. No definite acute abnormality. This exam was performed using automated exposure control, adjustment of mA or kV according to patient size, and/or use of iterative reconstruction technique Electronically signed by Joe Summers 01/18/2019 6:40 PM 01/18/19 1840 Interpreting Physician: Joe Summers MD Dictated Date/Time: 01/18/19 1838 cc: Tonya Doe; None,PCP) CT Results: See note - CONSULTS/PCP/HOSPITALIST Notification #1 *Consult/PCP/Hospitalist*: Dr. Sherman Time Discussed: 18:30 Reason/Comments: Consult Consult Disposition: other (Admit to hospitilist and consult Dr. Guerra) #2 Consult: Dr. Goldstein Time Discussed: 19:33 Reason/Comments: Admission Consult Disposition: Will see in ED, Admit Departure - Departure Date of Disposition Decision: 01/18/19 Time of Disposition Decision: 18:46 DIAGNOSIS: Shortness of breath, Tobacco abuse disorder Chest pain Qualifiers: Chest pain type: unspecified Qualified Code(s): R07.9 - Chest pain, unspecified GI bleed Qualifiers: GI bleed type/associated pathology: unspecified gastrointestinal hemorrhage type Qualified Code(s): K92.2 - Gastrointestinal hemorrhage, unspecified Hematuria Qualifiers: Hematuria type: unspecified type Qualified Code(s): R31.9 - Hematuria, unspecified Disposition: ADMITTED INPATIENT 09 Certified Medical Emergency: Emergent Condition: Stable Referrals and Follow-Ups: None,PCP [Primary Care Provider] - - Critical Care Note This patient required my direct & personal management of CC.: Yes Total Time (mins): 35 Critical Care Statement: This patient required my direct personal management to treat or rule out processes, the absence of which, could potentiallly result in sudden, clinically significant life or limb threatening deterioration. Attestation - Physician/ MADISON Attestation Patient care was provided by Advanced Practice Provider:: Yes Advanced Practice Provider:: Tonya Doe Advanced Practice Provider documentation review:: The Mid-level provider documentation, treatment plan and medical decision making was reviewed by the physician who agrees with all treatment and medical decision making by the MLP. The physician spent face to face time with patient:: No Advanced Practice Provider documentation review:: Supervising physician onsite and consulted in the evaluation and care of this patient. The physician did not have a face to face encounter with the patient.
--- NOTE | 2019-01-18 15:03 | ED EKG INTERP ---
This chart was entered by Jayde Cox Scribe, acting as scribe for Scooter Delarosa MD. EKG Interpretation - EKG Time of EKG reading by physician:: 13:58 EKG Read and Signed by:: Scooter Delarosa EKG Interpretation (*Must complete 3 of following elements*): Abnormal Rate: 97 Rhythm: normal sinus rhythm [place]: left QRS: RBB MO Interval: normal Comments: possible lateral infarct, age undetermined Attestation - Physician/ MADISON Attestation Patient care was provided by Advanced Practice Provider:: Yes Advanced Practice Provider:: Tonya Doe Advanced Practice Provider documentation review:: The Mid-level provider documentation, treatment plan and medical decision making was reviewed by the physician who agrees with all treatment and medical decision making by the MLP. The physician spent face to face time with patient:: No Advanced Practice Provider documentation review:: Supervising physician onsite and consulted in the evaluation and care of this patient. The physician did not have a face to face encounter with the patient. This chart was documented by the indicated scribe, (Jayde Cox Scribe) and accurately reflects the services I performed and decisions made by Washington campbell Alex T., MD, as attested by the provider's signature.
[2019-01-18 15:19] LABS: AGAP 11; ALBUMIN 3.7 g/dL (3.5-5.0); ALKALINE PHOSPHATASE 128 U/L (32-104); BUN 11 mg/dL (8-22); CALCIUM 8.3 mg/dL (8.8-10.2); CHLORIDE 105 mmol/L (98-107); CK PROFILE 77 U/L (24-173); COSMO 280; CREATININE 0.5 mg/dL (0.5-0.9); ESTIMATED GFR > 60; GLUCOSE 145 mg/dL (70-104); GOT 30 U/L (10-30); GPT 27 U/L (10-36); LIPASE 27 U/L (13-60); SODIUM 139 mmol/L (136-145); TCO2 23 mmol/L (25-35); TOTAL BILIRUBIN < 0.15 mg/dL (0.20-1.00); TOTAL PROTEIN 7.3 g/dL (6.3-8.3)
[2019-01-18 15:40] LABS: BASO# 0.03 X1000 (0.0-0.2); BASO% 0.5 % (0.0-0.8); EOS% 3.2 % (0.0-10.0); HEMOGLOBIN 12.8 g/dL (12.0-16.0); IMM GRAN# 0.06 X1000 (0.0-0.04); LYMPH# 1.87 X1000 (1.2-3.4); LYMPH% 30.4 % (20.5-51.1); MCH 28.3 PG (27-31); MCV 88.3 FL (81-99); MONO# 0.71 X1000 (0.11-0.59); MONO% 11.5 % (1.7-9.3); MPV 9.7 FL (7.4-10.4); NEUT# 3.29 X1000 (1.4-6.5); NEUT% 53.4 % (42.2-75.2); PLT 258 X1000 (130-400); RBC 4.53 XMIL (4.2-5.4); RDW 22.5 % (11.5-14.5); WBC 6.16 X1000 (4.8-10.8)
[2019-01-18 15:44] LABS: INR 0.98; PROTIME 13.1 Seconds (11.0-16.0)
[2019-01-18 15:45] LABS: PTT 28.5 Seconds (22.3-41.8)
[2019-01-18] MEDS ORDERED: CATAPRES PO ONE (15:59)
[2019-01-18 16:24] LABS: URINE SOURCE CLEAN CATCH
[2019-01-18 16:26] LABS: UR EPITHELIAL CELLS >10 /HPF (<10); URINE BACTERIA NEGATIVE /HPF; URINE RBC TNTC /HPF (<10); URINE WBC <10 /HPF (<10)
[2019-01-18 16:27] LABS: BILIRUBIN URINE NEGATIVE (NEGATIVE); BLOOD URINE LARGE (NEGATIVE); COLOR YELLOW; GLUCOSE URINE NEGATIVE (NEGATIVE); KETONE URINE NEGATIVE (NEGATIVE); LEUKOCYTES URINE NEGATIVE (NEGATIVE); NITRITE URINE NEGATIVE (NEGATIVE); PH URINE 5.5; PROTEIN URINE 30 mg/dL (NEGATIVE); SP GRAVITY URINE 1.038; TURBIDITY URINE HAZY (CLEAR); UROBILINOGEN URINE 3 mg/dL (NORMAL)
--- NOTE | 2019-01-18 18:42 | Diag Imaging Result Doc PS360 ---
CT ANGIOGRM PULMONARY ARTERIES - 01/18/2019 INDICATION: CP with SOB TECHNIQUE: Axial CT images were obtained after administering intravenous contrast. Coronal MIP images were generated. COMPARISON: 10/01/2018 FINDINGS: There is suboptimal opacification of the pulmonary arteries. No obvious pulmonary embolism. Heart and great vessels are normal. There are some stable prominent axillary lymph nodes bilaterally. Stable large hiatal hernia. Upper abdominal images are otherwise normal. Stable granuloma in the lingula. There is scattered linear atelectasis in the lung bases. No infiltrates. There are moderate degenerative changes of the spine. No acute or suspicious bony lesion. IMPRESSION: Suboptimal opacification of the pulmonary arteries. No definite acute abnormality. This exam was performed using automated exposure control, adjustment of mA or kV according to patient size, and/or use of iterative reconstruction technique Electronically signed by Joe Summers 01/18/2019 6:40 PM
[2019-01-18] MEDS ORDERED: PROTONIX IV ONE (18:46)
[2019-01-18] MEDS ORDERED: SODIUM CHLORIDE 0.9% INJ ONE (18:46)
[2019-01-18] MEDS: PROTONIX 80 MG in NS 80 ML IV SCH (19:31)
[2019-01-18] MEDS ORDERED: ZOFRAN IV PRN (22:01)
[2019-01-18] MEDS ORDERED: DUONEB (A & A) INH PRN (22:55)
[2019-01-19] MEDS: NS 1,000 ML IV SCH ×2 (01:52→12:39)
[2019-01-19] MEDS: MORPHINE IV PRN ×2 (01:57→06:12)
[2019-01-19] MEDS: TEGRETOL PO SCH ×3 (01:57→20:02)
[2019-01-19] MEDS: KEPPRA PO SCH ×4 (01:57→20:02)
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
[2019-01-19 03:36] LABS: HEMATOCRIT 37.1 % (37.0-47.0); HEMOGLOBIN 11.8 g/dL (12.0-16.0)
[2019-01-19] MEDS: PROTONIX 80 MG in NS 80 ML IV SCH ×2 (04:02→16:09)
[2019-01-19 06:18] LABS: BASO# 0.01 X1000 (0.0-0.2); BASO% 0.3 % (0.0-0.8); EOS# 0.09 X1000 (0.0-0.7); EOS% 2.8 % (0.0-10.0); HEMATOCRIT 36.8 % (37.0-47.0); HEMOGLOBIN 11.5 g/dL (12.0-16.0); LYMPH# 1.14 X1000 (1.2-3.4); MCH 27.9 PG (27-31); MCHC 31.3 g/dL (33-37); MCV 89.3 FL (81-99); MONO# 0.36 X1000 (0.11-0.59); MONO% 11.4 % (1.7-9.3); MPV 8.9 FL (7.4-10.4); NEUT# 1.57 X1000 (1.4-6.5); NEUT% 49.5 % (42.2-75.2); PLT 238 X1000 (130-400); RBC 4.12 XMIL (4.2-5.4); RDW 22.3 % (11.5-14.5); WBC 3.17 X1000 (4.8-10.8)
[2019-01-19 06:27] LABS: AGAP 9; BUN 10 mg/dL (8-22); CHLORIDE 105 mmol/L (98-107); COSMO 275; CREATININE 0.7 mg/dL (0.5-0.9); ESTIMATED GFR > 60; GLUCOSE 100 mg/dL (70-104); POTASSIUM 3.6 mmol/L (3.5-5.1); SODIUM 138 mmol/L (136-145); TCO2 24 mmol/L (25-35)
[2019-01-19] MEDS: PROZAC PO SCH (08:44)
[2019-01-19] MEDS: PRINZIDE 20/12.5MG PO SCH (08:45)
[2019-01-19] MEDS: LOVENOX SUBQ SCH (12:39)
[2019-01-19] MEDS: ULTRAM PO PRN ×2 (12:39→20:03)
--- NOTE | 2019-01-19 13:17 | PROGRESS NOTE ---
DATE: 01/19/2019 SUBJECTIVE: The patient reports no more episodes of melena. Denies any dizziness, nausea, vomiting or vomiting blood. OBJECTIVE: Vital Signs: Temperature 97.6 degrees, heart rate 66, respiratory rate 18, blood pressure 122/64, O2 saturation 96% on room air. General: This is a 53-year-old female lying in bed, in no acute distress. Cardiovascular: S1, S2 heard. No murmurs, gallops, or rubs. Regular rate and rhythm. Respiratory: Clear bilaterally to auscultation. No work of breathing or using accessory muscles. Abdomen: Soft, nontender to palpation. Bowel sounds present. No organomegaly. Extremities: No clubbing, cyanosis, or edema. Peripheral pulses present in both legs. Neurological: The patient is alert and oriented x3. Moves 4 extremities. LABORATORY DATA: Reviewed. ASSESSMENT AND PLAN: 1. Gastrointestinal bleeding. The patient was admitted to the hospital because of an episode of epigastric pain and melena. She has been seen by Dr. Pugh and had an endoscopy approximately 3 months ago. She has been and she is hemodynamically stable. Hemoglobin has dropped some today. At this point, we are awaiting GI evaluation with Dr. Pugh to see if she needs to have an endoscopy repeated or not. At this point, we will continue to monitor CBC daily. 2. History of deep venous thrombosis and pulmonary embolism. Patient has been almost a year on Lovenox 1 mg/kg every 12 hours. We have checked a pulmonary angiogram to see if there are still some clots there but that was normal. From admission, Dr. Pond from Hematology/Oncology has been consulted for help in the management of anticoagulation. It is important to remark that this patient has a family member on her father's side who has factor V Leiden mutation. 3. History of hepatitis C. Aware. 4. Seizure disorder. We will continue home medications in this case. 5. Hypertension. Blood pressure is under control. We will continue with the same management. 6. Disposition. Following the lead from GI. Will continue with same management. cc: Geovany Aguayo MD
--- NOTE | 2019-01-19 14:04 | GASTROENTEROLOGY CONSULTATION ---
DATE: 01/19/2019 REASON FOR CONSULTATION: Melena, history of GI bleed. HISTORY OF PRESENT ILLNESS: This is a 53-year-old female who we have seen in the past. She was recently in the hospital in October for gastrointestinal bleeding. Patient has a history of DVT and pulmonary embolus following with Dr. Fanny Pond. Due to her history of GI bleed she has been taking Lovenox followed by Dr. Pond. She takes the injections twice daily. Patient reports onset of symptoms over the last several days where she has noticed some dark stool. She states since her discharge in October she has noticed some black stools off and on. Over the last several days though she had been complaining of some dizziness. She had went shopping on Tuesday with a friend and became dizzy and fell in a store. Yesterday she had reported a black stool that was different than usual. She states that was foul smelling and she was concerned of active GI bleeding. Her last Lovenox injection was on morning so she has missed her evening Lovenox and her a.m. dose today. The patient did report some abdominal pain and chest pain along with shortness of breath on admission. Those symptoms seemed to have improved. She is complaining of some back pain. She is hungry and asking for something to eat. Her last EGD evaluation was in August 2018. At that time, findings showed hiatal hernia and Shaan's lesions. During one of her hospitalizations, she was seen by [facility] for the possibility of Stewart fundoplication. She is very high-risk for surgery: due to her anticoagulation requirements and history of DVT and pulmonary embolus. Patient is overweight. She has a history of tobacco use. I believe she has tried to stop smoking and maybe has stopped since her last hospitalization. Again it was felt high risk for surgical intervention for hiatal hernia. PAST MEDICAL HISTORY: 1. History of recurrent deep venous thrombosis and pulmonary embolus requiring chronic anticoagulation. 2. Hypertension. 3. Hepatitis C. 4. History of seizures. 5. History of gastrointestinal bleed. 6. Hiatal hernia/Shaan's lesions. 7. Iron-deficiency anemia. PAST SURGICAL HISTORY: 1. Cholecystectomy. 2. Hysterectomy. 3. Left thumb amputation. 4. Left orbital reconstruction. 5. Umbilical hernia repair. ALLERGIES: Sulfa, causing blisters to her mouth hands and legs. Peanuts causing itching and sneezing. Patient has reported reaction to morphine on this admission given IV, had some swelling at the IV site. HOME MEDICATIONS: 1. Albuterol inhaler every 4 hours as needed. 2. Tegretol 200 mg twice a day. 3. Lovenox 120 mg subcutaneous every 12 hours. 4. Prozac 20 mg daily. 5. Keppra 500 mg 3 times a day. 6. Lisinopril/hydrochlorothiazide 20/12.5 one daily. 7. Prilosec 20 mg twice a day. SOCIAL HISTORY: History of tobacco use. I believe she has cut down since her last hospitalization. History of IV drug use, none reported now. She currently resides in a skilled nursing, a transitional home. She states her father recently . She had went to [place] and has been back in town for about a week. She has 1 child that lives in [place]. FAMILY HISTORY: Positive for diabetes, history of factor V Leiden mutation on father side. REVIEW OF SYSTEMS: Per history of present illness. OBJECTIVE: Vital Signs: Temperature 97.6 degrees, pulse 66, respirations 18, blood pressure 122/64. General: Patient is awake, alert, no acute distress. At the time of my visit patient was standing up in her in her room in no acute distress. HEENT: Normocephalic, atraumatic. Pupils equal, round, reactive to light. Sclerae nonicteric. Cardiovascular: Regular rate and rhythm. Respiratory: Lung sounds essentially clear. Abdomen: Soft, diabetes. Otherwise positive bowel sounds. She has some skin changes from her frequent Lovenox injections. Some mild tenderness in epigastric area. Extremities: Pedal pulses present bilaterally. No edema noted today. Patient states she did have some edema over the last several days. Neurologic: Cranial nerves 2-12 grossly intact. Patient is awake, alert, oriented to person, place, and time. DIAGNOSTIC RESULTS: Laboratory: Hematology: WBC 3.17, hemoglobin 11.8, hematocrit 37.1. On admission her hemoglobin was 12.8, hematocrit 40.0, MCV 89.3, coagulation Protime 13.1, INR 0.98 PTT 28.5. Chemistry: Sodium 138, potassium 3.6, chloride 105, CO2 24, BUN 10, creatinine 0.7, glucose 100, calcium 9.0, total bilirubin less than 0.15, AST 30, ALT 27, alkaline phosphatase 128. Urinalysis large amount of blood noted in the urine. Too numerous to count RBCs. Imaging pulmonary arteriogram showed suboptimal exam of the pulmonary arteries. Otherwise no obvious pulmonary embolism. Stable large hiatal hernia. ASSESSMENT AND PLAN: 1. Melena. 2. Hemoccult-positive stool. 3. History of deep venous thrombosis and pulmonary embolus on chronic anticoagulation. 4. Large hiatal hernia with history of Shaan's lesions noted on esophagogastroduodenoscopy in August 2018. PLAN: 1. Continue proton pump inhibitor. 2. Continue to monitor for any active gastrointestinal bleeding. 3. Patient has held her Lovenox last evening and it has also been held this morning. Dr. Pond has been consulted for further recommendation. 4. As far as her hiatal hernia and Shaan's lesions patient has been evaluated in the past by [facility] and felt it was very high risk for her to proceed with surgery due to her other medical problems. Also it was felt due to her history of obesity and history of tobacco abuse it was high risk of recurrence of her hernia. 5. Unfortunately due to her requirement of anticoagulation, she is at high risk of bleeding. Would recommend using anticoagulation judiciously and following with Dr. Pond regarding the dosage requirement. 6. As far as definitive treatment for hiatal hernia and Shaan's lesions she is at high risk. She would need to have surgery most likely at tertiary center. For now we will continue to follow. Continue proton pump inhibitor and awaiting recommendation by Dr. Pond regarding her anticoagulation. 7. Gastroenterology will be available and we will continue to follow during her hospital course. Further plans will be made according to findings. I have discussed this case with Dr. Pugh. Dictated by VANNESSA Castillo for Tate Pugh MD cc: VANNESSA Garcia MD [facility]
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
[2019-01-19] MEDS: PROTONIX IV SCH (18:29)
[2019-01-20] MEDS: LOVENOX SUBQ SCH ×3 (00:10→23:24)
[2019-01-20] MEDS: PROTONIX IV SCH ×2 (06:23→18:48)
[2019-01-20] MEDS: ULTRAM PO PRN ×4 (06:27→23:15)
[2019-01-20 06:47] LABS: HEMATOCRIT 36.7 % (37.0-47.0); HEMOGLOBIN 11.5 g/dL (12.0-16.0); MCH 28.7 PG (27-31); MCHC 31.3 g/dL (33-37); MCV 91.5 FL (81-99); MPV 8.7 FL (7.4-10.4); RBC 4.01 XMIL (4.2-5.4); RDW 22.2 % (11.5-14.5); WBC 2.9 X1000 (4.8-10.8)
[2019-01-20] MEDS: TEGRETOL PO SCH ×2 (09:33→20:59)
[2019-01-20] MEDS: KEPPRA PO SCH ×3 (09:33→20:59)
[2019-01-20] MEDS: TYLENOL PO PRN (09:33)
[2019-01-20] MEDS: PROZAC PO SCH (09:34)
[2019-01-20] MEDS: PRINZIDE 20/12.5MG PO SCH (09:34)
--- NOTE | 2019-01-20 15:53 | PROGRESS NOTE ---
DATE: 01/20/2019 SUBJECTIVE: She has not had any further bleeding. She seems to be doing okay. OBJECTIVE: Blood pressure is 124/78, heart rate 77, respiratory rate 20, temperature 97.9 degrees, 96% on room air.Cardiovascular: Regular rate and rhythm. Pulmonary: Bilateral breath sounds. Clear to auscultation. GI: Soft, nontender, nondistended. Bowel sounds are positive. LABORATORY DATA: Hemoglobin and hematocrit is essentially stable. White count is 2.9, hemoglobin and hematocrit 11, 36, platelets of 195,000. No basic today. PROBLEM LIST: 1. Gastrointestinal bleed. She has a history of Shaan lesions. Her hemoglobin and hematocrit is essentially stable. She seems to be doing okay on anticoagulant. 2. History deep vein thrombosis, pulmonary embolism. No current pulmonary embolism but she has a fairly aggressive hypercoagulable state thrombophilia. I am not sure if it has been characterized. She has had factor V Leiden in the family. In any case any instrumentation has led to blood clot such as peripherally inserted central catheter lines and things of that nature. Inferior vena cava filter I think has been discussed previously but I think there is a concern it is potentially going to clot off even in the short term. Obviously she is 53 and will most likely outlive her inferior vena cava filter and then she will still need lifelong anticoagulation and it may not help at this point. 3. History of hepatitis C, is stable. 4. Seizure disorder stable on current medications. DISPOSITION: I think if her hemoglobin and hematocrit is stable on anticoagulation in the next couple days at the discretion of GI and Heme-Onc then I think we could try to get her home. She is still on Lovenox twice a day, another alternative may be Arixtra once a day just for convenience at the discretion of Dr. Pond. We will follow. cc: Mayco Torre MD
[2019-01-21 06:14] LABS: HEMATOCRIT 37.4 % (37.0-47.0); MCH 28.6 PG (27-31); MCHC 32.1 g/dL (33-37); MCV 89.3 FL (81-99); MPV 8.9 FL (7.4-10.4); RBC 4.19 XMIL (4.2-5.4); RDW 21.4 % (11.5-14.5); WBC 2.99 X1000 (4.8-10.8)
[2019-01-21 06:50] LABS: AGAP 11; BUN 6 mg/dL (8-22); CALCIUM 8.5 mg/dL (8.8-10.2); CHLORIDE 106 mmol/L (98-107); COSMO 279; CREATININE 0.7 mg/dL (0.5-0.9); ESTIMATED GFR > 60; GLUCOSE 95 mg/dL (70-104); SODIUM 141 mmol/L (136-145); TCO2 24 mmol/L (25-35)
[2019-01-21] MEDS: ULTRAM PO PRN ×3 (06:56→17:04)
[2019-01-21] MEDS: PROTONIX IV SCH (06:57)
[2019-01-21] MEDS: PROZAC PO SCH (08:41)
[2019-01-21] MEDS: PRINZIDE 20/12.5MG PO SCH (08:41)
[2019-01-21] MEDS: TEGRETOL PO SCH ×2 (08:41→20:51)
[2019-01-21] MEDS: KEPPRA PO SCH ×3 (08:42→20:51)
[2019-01-21] MEDS: LOVENOX SUBQ SCH (12:57)
--- NOTE | 2019-01-21 17:39 | PROGRESS NOTE ---
DATE: 01/21/2019 SUBJECTIVE: She looks well. She is complaining of some cramping in her body and some footdrop kind issues but no bleeding. She seems to be doing better. She was discussing going home today but I wanted to make sure her hemoglobin and hematocrit was stable. OBJECTIVE: Blood pressure 118/65, heart rate 73, respiratory 18, temperature 99.1 degrees.Cardiovascular: Regular rate and rhythm. Pulmonary: Bilateral breath sounds clear to auscultation. GI: Soft, nontender, nondistended. Bowel sounds are positive. LABORATORY DATA: White count is 2.9, hemoglobin and hematocrit 12 and 37, platelets 216. Electrolytes look okay. PROBLEM LIST: 1. Gastrointestinal bleed with history of Shaan lesions. Hemoglobin and hematocrit has been stable. I am going to change her to p.o. Prilosec. 2. History of DVT and PE. She is stable on Lovenox and I think that is what she is going to go home. 3. Seizure disorder. She is stable on current rx. DISPOSITION: I anticipate we should be able to go home. If her hemoglobin and hematocrit is stable tomorrow, home tomorrow pending consultants. cc: Mayco Torre MD MTDD
[2019-01-21] MEDS: PRILOSEC PO SCH (18:20)
[2019-01-21] MEDS: TYLENOL PO PRN (19:30)
[2019-01-21] MEDS: NEURONTIN PO SCH (20:52)
[2019-01-22] MEDS: PRILOSEC PO SCH (06:08)
[2019-01-22] MEDS: LOVENOX SUBQ SCH (06:08)
[2019-01-22 06:53] LABS: HEMATOCRIT 39.5 % (37.0-47.0); HEMOGLOBIN 12.3 g/dL (12.0-16.0); MCH 28.5 PG (27-31); MCHC 31.1 g/dL (33-37); MCV 91.4 FL (81-99); MPV 8.8 FL (7.4-10.4); RBC 4.32 XMIL (4.2-5.4); RDW 22.2 % (11.5-14.5); WBC 2.57 X1000 (4.8-10.8)
[2019-01-22 07:40] VITALS: BP 133/95
[2019-01-22] MEDS: KEPPRA PO SCH ×2 (08:26→17:23)
[2019-01-22] MEDS: NEURONTIN PO SCH (08:27)
[2019-01-22] MEDS: PROZAC PO SCH (08:27)
[2019-01-22] MEDS: TEGRETOL PO SCH (08:28)
[2019-01-22] MEDS: PRINZIDE 20/12.5MG PO SCH (08:28)
[2019-01-22] MEDS ORDERED: PNEUMOVAX 23 IM ONE (13:13)
--- NOTE | 2019-01-22 14:55 | HEMO/ONC PROGRESS NOTE ---
DATE: 01/22/2019 From our standpoint, the patient can go home when okay with the primary team as well as other consultants. The patient should go home on 1 mg/kg of Lovenox q.12 hours. She can follow up in our office as an outpatient for continued monitoring. Dictated by KEVIN Aguilar for Fanny Pond MD cc: Fanny Pond MD
--- NOTE | 2019-01-22 16:30 | GASTROENTEROLOGY PROGRESS NOTE ---
DATE: 01/22/2019 SUBJECTIVE: Patient is awake and alert. No acute distress. She states she is hoping to go home today. Dr. Pond is managing her Lovenox. No reported black stools. OBJECTIVE: Vital Signs: Temperature 98.3 degrees, pulse 79, respirations 20, blood pressure 133/95. General: Patient is awake and alert, in no acute distress. LABORATORY DATA: Hematology: WBC 2.57 hemoglobin 12.3, hematocrit 39.5, MCV 91.4. Chemistry: Sodium 141, potassium 4.0, chloride 106, CO2 24, BUN 6, creatinine 0.7, glucose 95. ASSESSMENT AND PLAN: 1. Recent melena. 2. History of Shaan's lesion and hiatal hernia with high risk for surgical repair. 3. History of deep venous thrombosis and pulmonary embolism on Lovenox, followed by Hematology, Dr. Pond. Patient has had no further melena. Hemoglobin and hematocrit have been stable. I believe she will be discharged home today. I have recommend she follow up with us as an outpatient. Further plans will be made according to her progress. I have discussed this case with Dr. Pugh. Dictated by VANNESSA Castillo for Tate Pugh MD cc: VANNESSA Garcia MD
[2019-01-22] MEDS: ULTRAM PO PRN (17:26)
--- NOTE | 2019-01-22 19:24 | DISCHARGE SUMMARY ---
ADMISSION DATE: 01/18/2019 DISCHARGE DATE: 01/22/2019 PRIMARY CARE PHYSICIAN: Listed as none. HEMATOLOGY ONCOLOGIST: Dr. Fanny Pond. CONSULTATIONS: From Hematology/Oncology and GI. ADMISSION DIAGNOSES: 1. Gastrointestinal bleed. Suspect upper gastrointestinal bleed. 2. History of deep vein thrombosis and pulmonary embolism. 3. History of hepatitis C. 4. Seizure disorder. 5. Hypertension. DISCHARGE DIAGNOSES: 1. Gastrointestinal bleed with history of Shaan lesions with stable hemoglobin and hematocrit currently. 2. History of deep vein thrombosis and pulmonary embolism. 3. Seizure disorder. SUMMARY OF FINDINGS: This is a 53-year-old female who presented to the emergency room with complaints of dizziness, chest pain and shortness of breath. Reports that for approximately 3 days prior to arriving she was having melena to the point where her chest was hurting in the epigastric area, was also noted to be tender on palpation. The pain was also radiating around the right flank area. Denied any nausea, vomiting although she reported melena. No changes in her bowel habit except for that. She denied using any [id number]-[id number] use of NSAIDs such as aspirin, naproxen or ibuprofen. Reports that her last dose of Lovenox was the morning of arrival. She was placed on a Protonix drip, was held n.p.o. initially, was hemodynamically stable. Hemoglobin and hematocrit were within normal limits and we continued to monitor that closely. We consulted GI. Her stool for occult blood was positive. She did not require any transfusions of blood. GI monitored her and continue her PPI. She has been evaluated in the past by [facility] and felt that she was at high risk to proceed with surgery for her hiatal hernia and Shaan lesions due to her medical problems and also due to her history of obesity and tobacco abuse placed her at a high risk for recurrence of her hernia and it is now felt that she is stable for discharge. DISCHARGE MEDICATIONS: DuoNeb q.4 hours p.r.n., Tegretol 200 mg p.o. b.i.d., fluoxetine 20 mg p.o. daily, Keppra 500 mg p.o. t.i.d., lisinopril/hydrochlorothiazide 20/12.5 one p.o. q.a.m., Lovenox 120 mg subcu q.12, omeprazole 20 mg p.o. b.i.d. FOLLOWUP: She will need to follow up with Hematology/Oncology as scheduled and it is felt that she does need to obtain a primary care physician. We can give her the physician referral line to obtain a primary care physician. All discharge instructions have been reviewed with the patient and she verbalized understanding. TIME SPENT: 35 minutes. Dictated by VANNESSA Fay for Mayco Torre MD cc: VANNESSA Fay MD
--- NOTE | 2019-01-23 05:06 | DISCHARGE SUMMARY ---
ADMISSION DATE: 01/18/2019 DISCHARGE DATE: 01/22/2019 DISCHARGE DIAGNOSES: 1. GI bleed. 2. History of deep venous thrombosis and pulmonary embolus with thrombophilia, but not otherwise characterized. HISTORY: The patient is seen day of discharge. She looks well. No major complaints. Hemoglobin and hematocrit has actually come up. She is felt stable for discharge on her current medications. She takes Lovenox I guess long-term. We will also give her a prescription for Neurontin and increase her Prilosec to 40 b.i.d. This is a [id number] encounter note with VANNESSA Fay cc: Mayco Torre MD
--- NOTE | 2019-01-24 08:06 | Extremity Venous Study ---
PROCEDURE NAME: Venous U/S Bilateral Legs - 01/20/2019 PROCEDURE: Bilateral lower extremity venous duplex study. REQUESTING PHYSICIAN: Dr. Torre. READING PHYSICIAN: Dr. Fry. RIGGER CHIEF: Renea. INDICATION: Leg swelling and pain. FINDINGS: The deep and superficial veins of both lower extremities were imaged throughout their course. They are compressible, patent and without thrombus. There is reflux in the right greater saphenous. The right greater saphenous and lesser saphenous veins have previously been ablated. INTERPRETATION: There is no DVT or SVT of either lower extremity, and there is previous right greater saphenous and lesser saphenous vein ablation. cc: MD Mayco Owusu MD
== END 2019-01-22 18:32 | disposition home or self-care (01) | DRG 378 ==
LOC: ED 13:51 → SUATTDRO 21:30 → 3N 21:30
PROVIDERS: ATTEND Internal Medicine

== ENCOUNTER 2019-03-18 18:30 | Inpatient (IN) ==
[2019-03-18 19:59] LABS: BASO# 0.02 X1000 (0.0-0.2); BASO% 0.3 % (0.0-0.8); EOS# 0.11 X1000 (0.0-0.7); EOS% 1.7 % (0.0-10.0); HEMOGLOBIN 12.6 g/dL (12.0-16.0); MCH 29.6 PG (27-31); MCHC 32.3 g/dL (33-37); MCV 91.5 FL (81-99); MONO# 0.87 X1000 (0.11-0.59); MONO% 13.5 % (1.7-9.3); MPV 8.6 FL (7.4-10.4); NEUT# 3.45 X1000 (1.4-6.5); NEUT% 53.5 % (42.2-75.2); PLT 279 X1000 (130-400); RBC 4.26 XMIL (4.2-5.4); RDW 13.9 % (11.5-14.5); WBC 6.45 X1000 (4.8-10.8)
[2019-03-18 20:03] LABS: INR 0.93; PROTIME 12.6 Seconds (11.0-16.0); PTT 32.9 Seconds (22.3-41.8)
[2019-03-18 20:21] LABS: AGAP 10; ALB/GLOB RATIO 1.1; ALBUMIN 4.1 g/dL (3.5-5.0); ALKALINE PHOSPHATASE 157 U/L (32-104); BUN 15 mg/dL (8-22); CALCIUM 9.5 mg/dL (8.8-10.2); CHLORIDE 98 mmol/L (98-107); COSMO 266; CREATININE 0.7 mg/dL (0.5-0.9); ESTIMATED GFR > 60; GLUCOSE 103 mg/dL (70-104); GOT 19 U/L (10-30); GPT 21 U/L (10-36); SODIUM 132 mmol/L (136-145); TCO2 24 mmol/L (25-35); TOTAL BILIRUBIN < 0.15 mg/dL (0.20-1.00); TOTAL PROTEIN 7.8 g/dL (6.3-8.3)
[2019-03-19 07:36] LABS: BASO# 0.02 X1000 (0.0-0.2); BASO% 0.5 % (0.0-0.8); EOS# 0.15 X1000 (0.0-0.7); EOS% 3.4 % (0.0-10.0); HEMATOCRIT 36.8 % (37.0-47.0); HEMOGLOBIN 11.3 g/dL (12.0-16.0); LYMPH# 1.62 X1000 (1.2-3.4); LYMPH% 37.2 % (20.5-51.1); MCH 28.5 PG (27-31); MCHC 30.7 g/dL (33-37); MCV 92.7 FL (81-99); MONO# 0.52 X1000 (0.11-0.59); MPV 8.6 FL (7.4-10.4); NEUT# 2.04 X1000 (1.4-6.5); NEUT% 46.9 % (42.2-75.2); PLT 254 X1000 (130-400); RBC 3.97 XMIL (4.2-5.4); RDW 13.7 % (11.5-14.5); WBC 4.35 X1000 (4.8-10.8)
[2019-03-19 07:51] LABS: AGAP 8; BUN 13 mg/dL (8-22); CALCIUM 8.9 mg/dL (8.8-10.2); CHLORIDE 104 mmol/L (98-107); COSMO 273; CREATININE 0.6 mg/dL (0.5-0.9); ESTIMATED GFR > 60; GLUCOSE 109 mg/dL (70-104); POTASSIUM 4.5 mmol/L (3.5-5.1); SODIUM 136 mmol/L (136-145); TCO2 24 mmol/L (25-35)
[2019-03-20 07:09] LABS: INR 1.09; PROTIME 14.2 Seconds (11.0-16.0)
[2019-03-20 07:10] LABS: PTT 45.4 Seconds (22.3-41.8)
[2019-03-20 07:25] LABS: BASO# 0.02 X1000 (0.0-0.2); BASO% 0.5 % (0.0-0.8); EOS% 2.4 % (0.0-10.0); HEMATOCRIT 37.8 % (37.0-47.0); HEMOGLOBIN 11.7 g/dL (12.0-16.0); LYMPH# 1.29 X1000 (1.2-3.4); LYMPH% 31.3 % (20.5-51.1); MCH 28.5 PG (27-31); MCV 92.2 FL (81-99); MONO# 0.44 X1000 (0.11-0.59); MONO% 10.7 % (1.7-9.3); MPV 8.8 FL (7.4-10.4); NEUT# 2.27 X1000 (1.4-6.5); NEUT% 55.1 % (42.2-75.2); PLT 246 X1000 (130-400); RDW 13.6 % (11.5-14.5); WBC 4.12 X1000 (4.8-10.8)
[2019-03-20 07:33] LABS: AGAP 9; BUN 8 mg/dL (8-22); CALCIUM 9.1 mg/dL (8.8-10.2); CHLORIDE 103 mmol/L (98-107); COSMO 273; CREATININE 0.6 mg/dL (0.5-0.9); ESTIMATED GFR > 60; GLUCOSE 119 mg/dL (70-104); MAGNESIUM 1.9 mg/dL (1.5-2.7); POTASSIUM 4.4 mmol/L (3.5-5.1); SODIUM 137 mmol/L (136-145); TCO2 25 mmol/L (25-35)
[2019-03-20 13:05] VITALS: BP 104/72
== END 2019-03-20 13:50 | disposition home or self-care (01) ==
LOC: ED 18:30 → SUATTDRO 03-19 00:39 → 3N 03-19 00:39
PROVIDERS: ATTEND Internal Medicine

== ENCOUNTER 2019-06-20 10:35 | Inpatient (IN) ==
[2019-06-20] MEDS ORDERED: NS 1,000 ML IV ONE (11:11)
[2019-06-20] MEDS ORDERED: PROTONIX 80 MG in NS 80 ML IV ONE (11:11)
[2019-06-20 12:03] LABS: BASO# 0.02 X1000 (0.0-0.2); BASO% 0.4 % (0.0-0.8); EOS# 0.13 X1000 (0.0-0.7); EOS% 2.3 % (0.0-10.0); HEMATOCRIT 40.5 % (37.0-47.0); HEMOGLOBIN 12.9 g/dL (12.0-16.0); LYMPH% 30.4 % (20.5-51.1); MCH 30.1 PG (27-31); MCHC 31.9 g/dL (33-37); MCV 94.4 FL (81-99); MONO% 10.7 % (1.7-9.3); NEUT# 3.15 X1000 (1.4-6.5); NEUT% 56.2 % (42.2-75.2); PLT 310 X1000 (130-400); RBC 4.29 XMIL (4.2-5.4); RDW 14.6 % (11.5-14.5)
[2019-06-20 12:38] LABS: AGAP 9; ALB/GLOB RATIO 1.1; ALBUMIN 3.6 g/dL (3.5-5.0); ALKALINE PHOSPHATASE 119 U/L (32-104); BUN 13 mg/dL (8-22); CALCIUM 9.2 mg/dL (8.8-10.2); CHLORIDE 103 mmol/L (98-107); COSMO 276; CREATININE 0.5 mg/dL (0.5-0.9); ESTIMATED GFR > 60; GLUCOSE 140 mg/dL (70-104); GOT 19 U/L (10-30); GPT 21 U/L (10-36); POTASSIUM 3.9 mmol/L (3.5-5.1); SODIUM 137 mmol/L (136-145); TCO2 25 mmol/L (25-35); TOTAL PROTEIN 6.8 g/dL (6.3-8.3)
[2019-06-20 12:43] LABS: TOTAL BILIRUBIN < 0.15 mg/dL (0.20-1.00)
[2019-06-20 12:47] LABS: INR 0.9; PROTIME 12.2 Seconds (11.0-16.0)
[2019-06-20 12:48] LABS: PTT 28.6 Seconds (22.3-41.8)
--- NOTE | 2019-06-20 13:30 | Diag Imaging Result Doc PS360 ---
EXAM: CT ABD/PELVIS W/IV CONT ONLY 06/20/2019 HISTORY: GI bleeding TECHNIQUE: This exam was performed using automated exposure control, adjustment of mA or kV according to patient size, and/or use of iterative reconstruction technique. COMMENT: The current study is compared with 12/02/2018. There are fibrotic changes present in the left lower lobe posteriorly. There is a calcified granuloma present in the inferior lingula. There is a large hiatal hernia. The aorta is not distended. The mesenteric and renal arteries are patent. The kidneys are without evidence of hydronephrosis or mass. There has been cholecystectomy. The liver is hypodense suggesting fatty change. The kidneys are without evidence of hydronephrosis or mass. The adrenal glands and spleen are within normal limits. The pancreas is unremarkable. There is no evidence of bowel obstruction or significant adenopathy. There is a fat-containing umbilical hernia. There appears to be some fluid within the umbilicus as well. This was also the case at the time the previous study. Pelvis: There is no evidence of diverticulitis. There is no free fluid. The urinary bladder is unremarkable. There are no masses. There is vacuum phenomenon at the L5-S1 level and in the facets at L4-5. There is no evidence of acute bony abnormality. IMPRESSION: Hepatic steatosis. Hiatal hernia. Electronically signed by Barak Avila 06/20/2019 1:28 PM
--- NOTE | 2019-06-20 14:25 | PROVIDER DOCUMENTATION ---
This chart was entered by Jayde Cox Scribe, acting as scribe for Kanu Ferraro MD. HPI-Abdominal Pain/GI Problem - General Stated Complaint: DARK STOOL Time Seen by Provider: 06/20/19 10:56 Source: patient Allergies/Adverse Reactions: Patient Allergies Allergy/AdvReac Type Severity Reaction Status Date / Time Sulfa (Sulfonamide Allergy Severe BLISTERS Verified 03/19/19 00:52 Antibiotics) TO MOUTH, HANDS, LEGS peanut Allergy Mild ITCHING Verified 03/19/19 00:52 AND SNEEZING morphine Allergy HIVES Verified 03/19/19 00:52 Home Medications: Home Medication List Medication Instructions Recorded Confirmed Last Taken Type Albuterol 2.5MG/Ipratrop 0.5MG 3 ml INH Q4H PRN PRN #30 neb 06/23/18 06/20/19 03/18/19 Rx [Duoneb (A & A)] Levetiracetam [Keppra] 500 mg PO TID #90 tab 06/23/18 06/20/19 03/18/19 Rx Lisinopril/Hydrochlorothiazide 1 ea PO QAM 09/23/18 06/20/19 03/18/19 History [Lisinopril-Hctz 20-12.5 mg Tab] Carbamazepine [Tegretol] 200 mg PO BID 01/18/19 06/20/19 03/18/19 History Gabapentin [Neurontin] 300 mg PO BID #60 cap 01/22/19 06/20/19 03/18/19 Rx Omeprazole [Prilosec] 40 mg PO BID #60 cap 01/22/19 06/20/19 03/18/19 Rx Fluoxetine HCl [Prozac] 20 mg PO DAILY 02/11/19 06/20/19 03/18/19 History Enoxaparin Sodium [Lovenox] 120 mg SQ Q12H #1 disp.syrin 03/20/19 06/20/19 Unknown Rx - History of Present Illness-ABD Nature of Presenting Problems: Patient is a 54 year old female who presents with black diarrhea. States diarrhea has been present for 5 days. History of DVT and PE. Reports she takes Lovenox daily but skipped 2 doses due to the black diarrhea. States having an iron treatment today prior to arrival. Denies hematuria and bleeding from gums. Quality of Pain: reports: none Severity in ED: reports: mild Onset/Duration: reports: 5 days ago Timing: reports: still present Activities at Onset: reports: light activity Associated Symptoms: reports: diarrhea (black) Dark Stools Present?: reports: black Rectal Bleeding: reports: other (black diarrhea) Bruising or Bleeding Gums?: No Similar Symptoms Previously?: Yes Recently seen or treated by another doctor?: Yes Review of Systems - Adult - REVIEW OF SYSTEMS - ADULT Constitutional: reports: no symptoms reported Eyes: reports: no symptoms reported Ears, Nose, Mouth & Throat: reports: no symptoms reported Cardiovascular: reports: no symptoms reported Respiratory: reports: no symptoms reported Gastrointestinal: reports: see HPI, diarrhea (black). denies: nausea, vomiting Genitourinary: reports: no symptoms reported. denies: hematuria Musculoskeletal: reports: no symptoms reported Integumentary: reports: no symptoms reported Neurological: reports: no symptoms reported Psychiatric: reports: no symptoms reported Endocrine: reports: no symptoms reported Hematologic/Lymphatic: reports: no symptoms reported Allergic/Immunologic: reports: no symptoms reported All Other Systems: Reviewed and Negative Past History - Adult - PAST MEDICAL HISTORY-ADULT Review of Records: reports: Old Records Reviewed, Nursing Assessment Review, Medications Reviewed, Social history reviewed & non-contributory. Major Childhood Illnesses: reports: denies history Cardiovascular: reports: blood clots, CHF, HTN Respiratory: reports: asthma Gastrointestinal: reports: GERD, GI bleed, hepatitis (c) Obstetrical/Gynecological: reports: denies history Genitourinary: reports: kidney disease Musculoskeletal: reports: denies history Neurological: reports: Seizures/Epilepsy, TIA Psychiatric: reports: bipolar, depression Endocrine/Immune: reports: denies history Other Conditions: reports: denies history - PRIOR SURGERIES/PROCEDURES Surgical/Procedure History: reports: hysterectomy, other, cholecystectomy - PRIOR HOSPITALIZATIONS Prior Hospitalizations: reports: for other non-related - IMMUNIZATION STATUS Childhood Immunizations: See Nurse Assessment Flu Vaccine: See Nurse Assessment - FAMILY HISTORY Family History: reviewed, not pertinent - SOCIAL HISTORY Smoking: cigarettes, less than 1 pack/day Provider spent 3-5 mins advising pt. on dangers of tobacco.: Discussed manners to quit use, and f/u contacts for add'l counseling. Substance Use: denies Physical Exam-General - PHYSICAL EXAM-ADULT Initial Vital Signs Reviewed: Yes - CONSTITUTIONAL General Appearance: alert, no apparent distress. negative: lethargic - RESPIRATORY Respiratory: chest non-tender, wheezing (mild expiratory bilaterally). negative: respiratory distress - CARDIOVASCULAR Cardiovascular: regular rate, rhythm, no gallop, no murmur. negative: tachycardia - GASTROINTESTINAL (ABDOMEN) Abdominal Exam: normal bowel sounds, soft, tenderness (epigastric). negative: guarding - GENITOURINARY Rectal Exam: hemorrhoids (external. no active bleeding from hemorrhoids), other (light brown stool present.) Hemoccult Exam: heme positive stool - SKIN Integumentary: normal color, normal turgor, warm/dry. negative: pallor - NEUROLOGIC Neurologic: grossly normal - PSYCHIATRIC Psych/Mental Status: normal mood/affect, normal thought content, normal thought process, oriented x 3. negative: anxious Progress - PLAN OF CARE/RESULTS Progress/Plan/Lab Results: Vital Signs - 8 hr 06/20/19 10:41 Temperature 98.0 F Pulse Rate 95 H Respiratory Rate 18 Blood Pressure 133/87 O2 Sat by Pulse Oximetry 96 Orders Category Date Time Status CBC WITH ELECTRONIC DIFF [HEME] Stat Lab 06/20/19 10:46 Uncollected COMPREHENSIVE METABOLIC PANEL [CHEM] Stat Lab 06/20/19 10:46 Uncollected PROTIME WITH INR [COAG] Stat Lab 06/20/19 10:46 Uncollected PTT [COAG] Stat Lab 06/20/19 10:46 Uncollected TYPE & SCREEN [BBK] Stat Lab 06/20/19 10:46 Uncollected GI Bleed (possible) Stat Oth 06/20/19 10:46 Ordered Result Diagrams: 06/20/19 11:18 06/20/19 11:18 - REASSESSMENT Reassessment #1 Time Reassessed: 13:40 Status: improving - CT/MRI 1 CT Study: Abdomen Impression: Abnormal, See EMR Report (Signed EXAM: CT ABD/PELVIS W/IV CONT ONLY 06/20/2019 HISTORY: GI bleeding TECHNIQUE: This exam was performed using automated exposure control, adjustment of mA or kV according to patient size, and/or use of iterative reconstruction technique. COMMENT: The current study is compared with 12/02/2018. There are fibrotic changes present in the left lower lobe posteriorly. There is a calcified granuloma present in the inferior lingula. There is a large hiatal hernia. The aorta is not distended. The mesenteric and renal arteries are patent. The kidneys are without evidence of hydronephrosis or mass. There has been cholecystectomy. The liver is hypodense suggesting fatty change. The kidneys are without evidence of hydronephrosis or mass. The adrenal glands and spleen are within normal limits. The pancreas is unremarkable. There is no evidence of bowel obstruction or significant adenopathy. There is a fat-containing umbilical hernia. There appears to be some fluid within the umbilicus as well. This was also the case at the time the previous study. Pelvis: There is no evidence of diverticulitis. There is no free fluid. The urinary bladder is unremarkable. There are no masses. There is vacuum phenomenon at the L5-S1 level and in the facets at L4-5. There is no evidence of acute bony abnormality. IMPRESSION: Hepatic steatosis. Hiatal hernia. Electronically signed by Barak Avila 06/20/2019 1:28 PM 06/20/19 1328 Interpreting Physician: Barak Avila MD Dictated Date/Time: 06/20/19 1324 cc: Kanu Ferraro MD; Fanny Pond MD) - CONSULTS/PCP/HOSPITALIST Notification #1 *Consult/PCP/Hospitalist*: Mari paged at 1341 Time Discussed: 13:59 Reason/Comments: Dr. Ferraro consulted with Dr. Guerra about patient. Consult Disposition: other (Dr. Guerra states admit to hospitalist, NPO after midnight and he will scope the patient tomorrow.) #2 Consult: Hospitalist paged at 1402 Time Discussed: 14:13 Reason/Comments: Dr. Ferraro consulted with VANNESSA Sales for Hospitalist about patient Consult Disposition: Will see in ED, Admit Departure - Departure Date of Disposition Decision: 06/20/19 Time of Disposition Decision: 14:13 DIAGNOSIS: Upper GI bleed Anticoagulant causing adverse effect in therapeutic use Qualifiers: Encounter type: initial encounter Qualified Code(s): T45.515A - Adverse effect of anticoagulants, initial encounter Disposition: ADMITTED INPATIENT 09 Certified Medical Emergency: Emergent Condition: Stable Referrals and Follow-Ups: Fanny Pond MD [Primary Care Provider] - - Critical Care Note This patient required my direct & personal management of CC.: No Attestation - Physician/ MADISON Attestation Patient care was provided by Advanced Practice Provider:: No The physician spent face to face time with patient:: Yes Advanced Practice Provider documentation review:: Supervising physician onsite and consulted in the evaluation and care of this patient. The physician did have a face to face encounter with the patient. This chart was documented by the indicated scribe, (Jayde Cox Scribe) and accurately reflects the services I performed and decisions made by me, Kanu Ferraro MD, as attested by the provider's signature.
[2019-06-20] MEDS ORDERED: TYLENOL PO PRN (14:30)
[2019-06-20] MEDS ORDERED: ZOFRAN IV PRN (14:30)
[2019-06-20] MEDS ORDERED: DUONEB (A & A) INH PRN (14:37)
[2019-06-20] MEDS ORDERED: SODIUM CHLORIDE 0.9% INJ SCH (15:15)
[2019-06-20] MEDS: KEPPRA PO SCH (18:20)
[2019-06-20] MEDS: PROTONIX IV SCH (18:20)
--- NOTE | 2019-06-20 18:41 | Diag Imaging Result Doc PS360 ---
EXAM: CHEST-1 VIEW 06/20/2019 HISTORY: dyspnea TECHNIQUE: AP portable upright at 1833 COMMENT: There is a calcification present in the left base. There is a large hiatal hernia. Compared to 03/20/2019 there has been no significant change. IMPRESSION: Stable chest. Electronically signed by Barak Avila 06/20/2019 6:38 PM
[2019-06-20] MEDS: DUONEB (A & A) INH SCH ×2 (19:27→23:22)
[2019-06-20] MEDS: NS 1,000 ML IV SCH (19:32)
[2019-06-20] MEDS: SYMBICORT 80/4.5 MICROGM INHALER INH SCH (19:33)
[2019-06-20] MEDS: TEGRETOL PO SCH (21:38)
[2019-06-20] MEDS: NEURONTIN PO SCH (21:38)
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
[2019-06-21] MEDS: DUONEB (A & A) INH SCH ×6 (03:36→23:24)
[2019-06-21] MEDS: PROTONIX IV SCH ×2 (04:07→15:40)
[2019-06-21 08:09] LABS: HEMATOCRIT 36.6 % (37.0-47.0); HEMOGLOBIN 11.4 g/dL (12.0-16.0); MCH 29.6 PG (27-31); MCHC 31.1 g/dL (33-37); MCV 95.1 FL (81-99); RBC 3.85 XMIL (4.2-5.4); RDW 14.6 % (11.5-14.5); WBC 4.43 X1000 (4.8-10.8)
--- NOTE | 2019-06-21 08:13 | GASTROENTEROLOGY CONSULTATION ---
DATE: 06/21/2019 REASON FOR CONSULTATION: Melena, concern for GI bleed. HISTORY OF PRESENT ILLNESS: Ms. Saskia Abdalla is a 54 year old woman with a past medical history of hypertension, bipolar disorder, PTSD, depression, GERD, chronic hepatitis C without cirrhosis, prior upper extremity and lower extremity DVT's on Lovenox, seizure disorder, and prior GI bleed from Shaan lesions, who presents with 5 days of black diarrhea with associated epigastric pain, dizziness and fatigue. The patient denies taking any NSAIDs or aspirin. She says she had similar [*]in the past when she presented with GI bleeding. Her last EGD was in 2018. Prior colonoscopy in 2014. No weight loss, gross hematochezia, hematemesis, or blood clots. REVIEW OF SYSTEMS: As per HPI. Otherwise, a 12 point review is negative. PAST MEDICAL HISTORY: As per HPI. PAST SURGICAL HISTORY: Hysterectomy, orbital reconstruction, cholecystectomy, partial amputation of left thumb, and right upper extremity debridement for MRSA infection. HOME MEDICATIONS: 1. Tegretol. 2. Prozac. 3. Keppra. 4. Omeprazole. 5. Lovenox. ALLERGIES: Morphine and sulfa. Peanuts. SOCIAL HISTORY: She smokes 3 cigarettes per day down from a 2 pack of smoking tobacco daily in the past. No alcohol. 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 PHYSICAL EXAMINATION: Vital Signs: Temperature 98.2, heart rate 80, respiratory rate 20, blood pressure 131/69, and 02 saturation 96% on room air. General: The patient is awake, alert, and oriented in no acute distress. HEENT: Sclerae anicteric. Moist mucous membranes. Extraocular movement is intact. Neck: Supple. No JVD. No lymphadenopathy. Cardiac: Regular rate and rhythm. No murmurs, rubs, or gallops. Lungs: Clear to auscultation bilaterally. Extremities: No clubbing, cyanosis, or edema. Neurologic: Nonfocal. LABORATORY: White count of 5.6, hemoglobin 12.9, platelets 310,000. INR 0.90. Sodium 137, potassium 3.9, chloride of 103, bicarb 25, BUN of 13, creatinine 2.5. Glucose of 140 [*]alkaline phosphatase of 119. Total protein is 6.8 and albumin 2.6. IMAGING: CT of the abdomen and pelvis with IV contrast shows hepatic steatosis and hiatal hernia. Chest x-ray shows stable chest. Last hiatal hernia compared to 03/20/2019 has no significant change. ASSESSMENT AND PLAN: Ms. Saskia Abdalla is a 61-year-old woman with past medical history of multiple DVT's on Lovenox in the past, chronic hepatitis C without cirrhosis and prior GI bleed from Shaan lesions, who presents with recurrent melenic stools found to have a hemoglobin of 12.9. Exam notable for some mild tenderness in the epigastric area. No rebound or guarding. She is currently on PPI treatment with IV Protonix b.i.d. She has been holding her Lovenox. I have recommend keeping her NPO, continue IV fluids, and plan for diagnostic EGD tomorrow with Dr. Chao. Other issues include seizure disorder and hepatitis C, GERD, and bipolar disorder. Thank you for this consult. We will follow with you. Please call with any questions or concerns.
[2019-06-21] MEDS: SYMBICORT 80/4.5 MICROGM INHALER INH SCH ×2 (08:16→20:47)
[2019-06-21 08:44] LABS: AGAP 6; BUN 7 mg/dL (8-22); CALCIUM 8.8 mg/dL (8.8-10.2); CHLORIDE 107 mmol/L (98-107); COSMO 279; CREATININE 0.5 mg/dL (0.5-0.9); ESTIMATED GFR > 60; GLUCOSE 98 mg/dL (70-104); SODIUM 141 mmol/L (136-145); TCO2 28 mmol/L (25-35)
[2019-06-21] MEDS ORDERED: DIPRIVAN 1% ONE (10:36)
[2019-06-21] MEDS ORDERED: XYLOCAINE-MPF 2% ONE (10:37)
[2019-06-21] MEDS ORDERED: VERSED ONE (11:00)
--- NOTE | 2019-06-21 11:16 | ENDOSCOPY OPERATIVE NOTE ---
[facility] ENDOSCOPY OPERATIVE NOTE , EGD PROCEDURE REPORT EXAM DATE: 06/21/2019 PATIENT NAME: Saskia Abdalla MR#: [id number] BIRTHDATE: 1965 ATTENDING: Jose Chao MD STATUS: inpatient SUGAR COATING HAND: Deonna Pino and Kris Martinez INDICATIONS: The patient is a 54 yr old female here for an EGD due to Melena, Anemia, epigastric Ten derness; Patient of Dr Pugh. PROCEDURE PERFORMED: EGD, diagnostic MEDICATIONS: Per Anesthesia ESTIMATED BLOOD LOSS: None CONSENT: The patient understands the risks and benefits of the procedure and understands that these r isks include, but are not limited to: sedation, allergic reaction, infection, perforation and/or bleeding. Alternative means of evaluation and treatment include, among others: physical exam, x-rays, and/or surgical intervention. The patient elects to proceed with this endoscopic procedure. DESCRIPTION OF PROCEDURE: During pre-op preparation period all mechanical and medical equipment was c hecked for proper function. Hand hygiene and appropriate measures for infection prevention was taken. After the risks, benefits and alternatives of the procedure were thoroughly explained, Informed consent was verified, confirmed and timeout was successfully executed by the treatment team. The patient was anesthetized with topical anesthesia and the [id number] ([id number]) endoscope was introduced through the mouth and advanced to the third portion of the duodenu m. Retroflexion was performed in the stomach and revealed a hiatal hernia and Retroflexion was performed in the stoma ch and revealed . The gastroscope was then slowly withdrawn and removed. The patient's toleration of the procedure was good. ESOPHAGUS: Z line was noted at 40 cms approximately. A 6 cm hiatal hernia was noted. STOMACH: Mild non-erosive gastritis (inflammation) was found in the gastric antrum and gastric body. DUODENUM: Mild duodenal inflammation was found in the duodenal bulb. The duodenal mucosa showed no abnormalities in the 1st part of the duodenum and 2nd part duodenum. PERTINENT NEGATIVES: There was no evidence of blood and ulcer. ADVERSE EVENTS: There were no complications. IMPRESSIONS: 1. Z line was noted at 40 cms approximately 2. 6 cm hiatal hernia 3. Non-erosive gastritis (inflammation) was found in the gastric antrum and gastric body 4. Duodenal inflammation was found in the duodenal bulb 5. The duodenal mucosa showed no abnormalities in the 1st part of the duodenum and 2nd part duodenum RECOMMENDATIONS: Start Iron C BID for 90 days and MVI QD Start PPI QD for 90 days Follow up with Dr Pugh in 1 week for outpatient work up of Anemia and may need colonoscopy. Try to loose weight. REPEAT EXAM: Jose Chao MD eSigned: Jose Chao MD 06/21/2019 11:15 AM CC: CPT CODES: 82715 Upper gastrointestinal endoscopy including esophagus, stomach, and either the du odenum and/or jejunum as appropriate; diagnostic, with or without collection of specimen(s) by brushing or washing (separate procedure) ICD CODES: 553.3 Diaphragmatic hernia without mention of obstruction or gangrene 535.50 Unspecified gastritis and gastroduodenitis (without hemorrhage) 535.60 Duodenitis (without mention of hemorrhage) The ICD and CPT codes recommended by this software are interpretations from the data that the [facility] staff has captured with the software. The verification of the translation of this report to the ICD and CPT co zahira and modifiers is the sole responsibility of the health care institution and practicing physician where this report was generated. [employer] will not be held responsible for the validity of the ICD and CPT codes i ncluded on this report. AMA assumes no liability for data contained or not contained herein. CPT is a registered tra demark of the [employer]. PATIENT NAME: Saskia Abdalla MR#: [id number]
[2019-06-21] MEDS: TEGRETOL PO SCH ×2 (14:25→21:02)
[2019-06-21] MEDS: NEURONTIN PO SCH ×2 (14:26→21:02)
[2019-06-21] MEDS: PROZAC PO SCH (14:26)
[2019-06-21] MEDS: KEPPRA PO SCH ×3 (14:27→18:25)
[2019-06-21] MEDS: LOVENOX SUBQ SCH (14:40)
[2019-06-21] MEDS: NS 1,000 ML IV SCH (14:41)
[2019-06-21] MEDS: CENTRUM SILVER PO SCH (14:41)
[2019-06-21] MEDS ORDERED: SOLU-MEDROL IV ONE (14:59)
[2019-06-21] MEDS ORDERED: ROCEPHIN 1 GM in NS 50 ML IV SCH (15:00)
--- NOTE | 2019-06-21 19:07 | PROGRESS NOTE ---
DATE: 06/21/2019 SUBJECTIVE: The patient is resting comfortably. She complains of wheezing and nasal discharge. OBJECTIVE: Vital Signs: Temperature 98.2 degrees, blood pressure 130/70, heart rate 87, respirations 19, O2 saturation 96% on room air. General: This is a morbidly obese female lying in bed in no acute distress. Heart: S1, S2 normal. Regular rate and rhythm. Lungs: Mild expiratory wheezes. Abdomen: Positive bowel sounds. Soft, nontender, nondistended. Extremities: No edema. No cyanosis. Neurologic: The patient is alert and oriented x3. LABORATORY DATA: Reviewed. ASSESSMENT AND PLAN: 1. Gastrointestinal bleed. The patient's hemoglobin and hematocrit is stable. The esophagogastroduodenoscopy done today revealed inflammation involving the duodenum. The patient is currently on Protonix, which she will continue for the next 3 months as per GI. The patient has also been started on iron supplementation. 2. 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 The patient has been started back on full-dose Lovenox by Hematology. 3. Seizure disorder. Continue on the current seizure medications. 4. Acute bronchitis. Continue with bronchodilator therapy, antibiotics and will give the patient a dose of steroid therapy. 5. Morbid obesity. Aware. 6. Situational depression. Continue on Prozac. 7. Disposition. We will plan to discharge the patient home tomorrow. cc: Leydi Prasad MD
[2019-06-21] MEDS: ICAR-C PO SCH (21:02)
[2019-06-22] MEDS: LOVENOX SUBQ SCH ×2 (00:44→12:56)
[2019-06-22] MEDS: PROTONIX IV SCH (02:58)
[2019-06-22] MEDS: DUONEB (A & A) INH SCH ×4 (03:48→15:41)
[2019-06-22] MEDS ORDERED: DUONEB (A & A) ONE (07:17)
[2019-06-22] MEDS: SYMBICORT 80/4.5 MICROGM INHALER INH SCH (07:46)
[2019-06-22 08:01] LABS: HEMATOCRIT 37.4 % (37.0-47.0); HEMOGLOBIN 11.8 g/dL (12.0-16.0); MCH 29.9 PG (27-31); MCHC 31.6 g/dL (33-37); MCV 94.7 FL (81-99); MPV 8.7 FL (7.4-10.4); RBC 3.95 XMIL (4.2-5.4); RDW 14.5 % (11.5-14.5); WBC 3.68 X1000 (4.8-10.8)
[2019-06-22 08:29] LABS: AGAP 9; BUN 5 mg/dL (8-22); CALCIUM 8.7 mg/dL (8.8-10.2); CHLORIDE 107 mmol/L (98-107); COSMO 277; CREATININE 0.6 mg/dL (0.5-0.9); ESTIMATED GFR > 60; GLUCOSE 96 mg/dL (70-104); SODIUM 140 mmol/L (136-145); TCO2 24 mmol/L (25-35)
[2019-06-22] MEDS: KEPPRA PO SCH (09:41)
[2019-06-22] MEDS: PROZAC PO SCH (09:41)
[2019-06-22] MEDS: TEGRETOL PO SCH (09:41)
[2019-06-22] MEDS: ICAR-C PO SCH (09:41)
[2019-06-22] MEDS: CENTRUM SILVER PO SCH (09:41)
[2019-06-22] MEDS: NEURONTIN PO SCH (09:41)
[2019-06-22] MEDS ORDERED: FLU VACCINE IM ONE (09:48)
[2019-06-22] MEDS ORDERED: PRINZIDE 20/12.5MG PO SCH (12:00)
[2019-06-22 12:57] VITALS: BP 132/81
[2019-06-22] MEDS ORDERED: KEPPRA PO SCH (15:00)
--- NOTE | 2019-06-22 20:32 | CONSULTATION ---
DATE OF CONSULTATION: 06/22/2019 HISTORY OF PRESENT ILLNESS: Ms. Miracle Abdalla is a 54-year-old white female, overweight, who has a history of skin infections in the past. She has developed a boil in the left pubic area, and we were asked to evaluate it. PHYSICAL EXAMINATION: On examination, she does have a boil that is raised and red, but there is no undrained purulence involving this. There is no significant surrounding cellulitis. ASSESSMENT/PLAN: I think this could be treated locally and with p.o. antibiotics. I discussed this with her at the bedside. I think the plan is to let her be discharged home today. cc: Swathi Gutierres MD
--- NOTE | 2019-06-22 21:01 | HEMO/ONC CONSULTATION ---
DATE: 06/21/2019 CONSULTATION REQUESTED BY: Hospitalist service. REASON FOR CONSULTATION: Patient known. HISTORY OF PRESENT ILLNESS: Ms. Abdalla is known to us as we follow her for multiple DVTs and she is on lifelong anticoagulation, as well as iron deficiency anemia. Ms Abdalla was actually in our office back on 06/13/2019. At that time, she reported increased fatigue, but no melenic stool. Her hemoglobin was stable at 12.7. However, she was found to be quite iron deficient. We had her set up to receive iron and she received a dose on 06/20/2019. While she was receiving her Injectafer, she did report to us at that time that she was having some dark tarry stool. 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 We called to set up a referral and the out of pocket cost was rather high. The patient then decided to follow up at the emergency department for further evaluation. She does have a history of hiatal hernia as well as esophageal ulcers and erosive gastritis and duodenitis. She has Shaan lesions as well. She has had GI bleeding off and on now for several years. She also has recurrent DVTs and is an easy clotter. Currently, her Lovenox is on hold. She did have an endoscopy earlier this morning which showed no evidence of any bleeding. Overall, she feels relatively well. PAST MEDICAL HISTORY: 1. History of recurrent DVTs and PTEs, and she does require lifelong anticoagulation. She is on Lovenox 1 mg/kg q.12 hours indefinitely. 2. Iron deficiency anemia. 3. Recurrent GI bleeds with several GI illnesses as per the HPI. 4. Hepatitis C. 5. Seizure disorder. 6. Hypertension. 7. Diverticulitis/diverticulosis. PAST SURGICAL HISTORY: 1. Colonoscopy and EGD in 2019, with her EGD done earlier today. 2. Cholecystectomy. 3. Hysterectomy. 4. Left thumb amputation. 5. Left orbital reconstruction secondary to injury. 6. Umbilical hernia repair. SOCIAL HISTORY: Patient is a former smoker. She quit in December 2018. She denies any current alcohol or illicit drug use. 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 She currently lives in a nursing home house. FAMILY HISTORY: Positive for factor V Leiden mutation in her father. REVIEW OF SYSTEMS: Twelve point review of systems has been completed and negative except as expressed in the HPI. PHYSICAL EXAMINATION: Vital Signs: Temperature 97.9 degrees, heart rate 76, respirations 19, blood pressure 141/80, O2 saturation 95% on room air. General: This is a female sitting up in a chair in her hospital room. She is in no acute distress. Head: Normocephalic, atraumatic. Eyes: Pupils equal, round, and reactive. Ears, nose, throat, neck, mouth: Mucosa appears to be normal. Gross auditory acuity intact. Cardiovascular: S1, S2 heard. Regular rate and rhythm. Respiratory: Chest is clear. Gastrointestinal: Abdomen is nondistended. Musculoskeletal: No obvious bony abnormalities. Skin: No obvious rashes. Neurologic: Patient is alert and oriented. LABS AND STUDIES: White blood cells are 4.43, hemoglobin 11.4, platelet count 249,000. Sodium 141, potassium 4.0, chloride 107, BUN 7, creatinine 0.5, glucose 98. ASSESSMENT AND PLAN: 1. Recurrent deep venous thromboses and pulmonary thromboembolism. We are going to reinitiate the patient's Lovenox 1 mg/kg q.12 hours. She has a significant history of recurrent thrombus off of anticoagulation. We recommend continuing her anticoagulation as long as she has no massive claire bleeding, and as long she has no massive claire ongoing bleeding, and as long as her hemoglobin remains stable. We also recommend continuing anticoagulation as long as she is hemodynamically stable. Monitor hemoglobin and hematocrit closely and for signs and symptoms of massive bleeding. 2. Recurrent gastrointestinal bleeding. She is status post esophagogastroduodenoscopy this morning with no evidence of any bleeding. Per GI's note, they recommend that she have an outpatient colonoscopy. I have encouraged the patient to continue to follow closely with GI as they recommend. 3. Iron deficiency, significant. She is status post a dose of iron yesterday in our office. Would not recommend doing additional parenteral iron at this time. She is on oral iron, which she can continue. 4. Dizziness and fatigue. This is likely secondary to blood loss. Seems to definitely be improved at this point. 5. Disposition. The patient could follow up with us as an outpatient. If she happens to get out in time, she is due for repeat intravenous iron next week in our office. Again, recommend that she follow up with GI as scheduled. We want to thank you for consulting us on Ms. Abdalla. We will continue to follow along while she is here at the hospital. We will adjust our treatment plan per her hospital course. Dictated by KEVIN Aguilar for Fanny Pond MD cc: Fanny Pond MD
== END 2019-06-22 17:51 | disposition home or self-care (01) | DRG 378 ==
LOC: ED 10:35 → EDIPHOLD 14:56 → 3N 15:57
PROVIDERS: ATTEND Internal Medicine